=== PATIENT | male | born 1940 | race Caucasian/White ===

== ENCOUNTER 2017-01-04 13:23 | Emergency (ER) | payer OTHER ==
[~2017-01-04] VITALS: Ht 182.9 cm; Wt 68.2 kg
[~2017-01-04 13:23] MED LIST: AMLO-114 PO; ASPCH81X PO; ATOR-24 PO; BACL1TAB PO; CHOL100010 PO; CYCL10TA6 PO; FERRTAB18 PO; HYDR-4717 PO; IPRA1AER2 INH; KETO0.5S22 OPL; LORA-741 PO; LOSA100T65 PO; METO25TA3 PO; MULTCHW3 PO; OXGN; OXYC-106 PO; PANT40TA PO; PRED1SUS3 OPL; PRVHFAIN INH; SENN-65 PO; SYMIN160 INH; ZOLP10TA PO
[2017-01-04 13:32] VITALS: TEMP 36.5; Ht 182.9 cm; Wt 68.2 kg
[2017-01-04] MEDS ORDERED: SODIUM CHLORIDE 0.9% 250ML 250 ML IV STA (13:46)
[2017-01-04] MEDS ORDERED: OPTIRAY 320 IV PRN (14:00)
[2017-01-04 14:33] LABS: BASO % 2.6 %; BASO ABS # 0.18 K/uL (0-0.2); COMPLETE YES; HEMATOCRIT 33.3 % (42-52); IG% 0.1 %; LYMPH % 24.7 %; LYMPH ABS # 1.69 K/uL (1.2-3.4); MEAN CELL VOLUME 84.3 fL (80-100); MEAN CORPUSCULAR HEMOGLOBIN 27.8 pg (25-34); MEAN PLATELET VOLUME 8.9 fL (7.4-10.4); NEUT % 59.6 %; PLATELET COUNT 476 K/uL (130-400); RED BLOOD COUNT 3.95 M/uL (4.7-6.1); WHITE BLOOD COUNT 6.84 K/uL (4.8-10.8)
[2017-01-04 15:00] LABS: CALCIUM 8.7 mg/dl (8.5-10.1)
[2017-01-04 15:02] LABS: BUN/CREATININE RATIO 10.7 (10-20); CREATININE 0.8 mg/dl (0.60-1.40); POTASSIUM 3.9 mmol/L (3.5-5.1)
--- NOTE | 2017-01-04 16:49 | DIAGNOSTIC IMAGING REPORT ---
ABDOMEN AND PELVIS CT WITH IV AND ORAL CONTRAST CT DOSE: 338.36 mGy.cm HISTORY: Left lower quadrant pain LLQ pain and diarrhea eval for diver tic TECHNIQUE: Multiaxial CT images of the abdomen and pelvis were performed following the use of intravenous and oral contrast. COMPARISON STUDY: 11/17/2013 FINDINGS: Mild left basilar atelectasis. Liver spleen and pancreas appear unremarkable. Stable left adrenal nodule. Gallbladder is negative for distention. Kidneys negative for hydronephrosis. Several renal vascular calcifications are present. Atherosclerotic change abdominal aorta as well as iliac vasculature. Graft placement is noted on the right. This appears patent. Bowel pattern overall is nonobstructive. Bladder is midline. There is mild thickening of the bladder wall felt to be secondary to its contracted state. IMPRESSION: No acute process. Chronic changes as noted stable from the prior exam. No evidence for retroperitoneal hemorrhage mass or collection. Electronically signed by: Stiven Schroeder M.D. 01/04/2017 4:47 PM Dictated Date/Time: 01/04/2017 4:44 PM
[2017-01-04 16:57] VITALS: BP 130/69; PULSE 89; O2SAT 94
--- NOTE | 2017-01-04 17:55 | EMERGENCY ROOM VISIT NOTE ---
History Report prepared by Ira: Kellee Faith Under the Supervision of: Dr. Garth Hernandez M.D. First contact with patient: 13:37 Chief Complaint: GI ASSESSMENT Stated Complaint: GI BLEED Nursing Triage Summary: Pt states hx of GI bleed. Today having fever/chills, diarrhea, decreased po intake, nausea. + blood in stool. States stools are black. History of Present Illness The patient is a 76 year old male who presents to the Emergency Room with complaints of multiple episodes of diarrhea over the past couple of days. Today , the patient had 2 episodes of diarrhea and noticed that his stool was black in color. He did not notice any red blood in his stool. He did not check what color his stool was yesterday. Currently, the patient also complains of some weakness and lightheadedness. He has shortness of breath at baseline and his breathing today is unchanged. The patient has a history of a GI bleed in June 2016. He called his PCP today and was referred to the ED due to his symptoms. Denies fever, chest pain, vomiting, abdominal pain, or other complaints. He takes baby aspirin daily but does not use any other blood thinners. He does not use NSAIDS. He drinks alcohol very rarely. Denies any recent foreign travel or recent antibiotic use. Source of History: patient Onset: a couple days ago Position: other (GI) Quality: other (diarrhea) Timing: other (episodic) Associated Symptoms: + weakness, No abdominal pain, No chest pain, No fevers , No vomiting Note: Other symptoms: lightheadedness Review of Systems See HPI for pertinent positives & negatives. A total of 10 systems reviewed and were otherwise negative. Past Medical & Surgical Medical Problems: (1) Aneurysm artery, femoral (2) Cerebrovascular event (3) Chronic anticoagulation (4) Chronic respiratory failure with hypoxia (5) Colon cancer (6) COPD (chronic obstructive pulmonary disease) (7) H/O: lung cancer (8) HLD (hyperlipidemia) (9) Hypertension (10) Pacemaker (11) Peripheral vascular disease (12) Pulmonary embolus Surgical Problems: (1) H/O hernia repair (2) History of back surgery (3) S/P AAA repair (4) S/P lobectomy of lung (5) S/P partial colectomy (6) S/P tonsillectomy Family History FHx: cancer SISTER FHx: heart disease FATHER SISTER FHx: hypertension FHx: lung disease Stroke MOTHER Social History Smoking Status: Former Smoker Alcohol Use: occasionally Drug Use: none Marital Status: Housing Status: lives with family Occupation Status: retired Current/Historical Medications Scheduled Amlodipine (Norvasc), 10 MG PO QAM Aspirin (Aspirin Chewable), 81 MG PO QPM Atorvastatin (Lipitor), 40 MG PO HS Budesonide/Formoterol Fumarate (Symbicort 160/4.5 Inhaler ), 2 PUFFS INH BID Cholecalciferol (Vitamin D), 2 TAB PO QPM Hydralazine Hcl (Apresoline), 25 MG PO TID Ipratropium-Albuterol (Combivent Respimat), 1 PUFFS INH QID Iron-Vitamin C (Vitron-C), 1 TAB PO QPM Losartan Potassium (Cozaar), 100 MG PO QPM Multiple Vitamins W/ Minerals (Centrum), 1 CHW PO QPM Oxygen (Oxygen), 3 LITERS NA PRN Pantoprazole (Protonix), 40 MG PO DAILY Scheduled PRN Albuterol (Ventolin Hfa), 2 PUFFS INH QID PRN for Wheezing Baclofen (Lioresal), 20 MG PO TID PRN for Muscle Spasms Cyclobenzaprine Hcl (Flexeril), 1 TAB PO TID PRN for Muscle Spasms Lorazepam (Ativan), 0.5 MG PO TID PRN for Anxiety Oxycodone/Acetaminophen 10MG/325MG (Percocet 10MG/325MG), 1 TAB PO Q4H PRN for Pain Senna/Docusate Sod (Senokot S), 1 TAB PO QAM PRN for Constipation Zolpidem Tartrate (Ambien), 1 TAB PO HS PRN for Insomnia Allergies Coded Allergies: No Known Allergies (Verified , 01/04/17) Physical Exam Vital Signs Date Time Temp Pulse Resp B/P Pulse Ox O2 Delivery O2 Flow Rate FiO2 01/04/17 16:57 89 16 130/69 94 Room Air 01/04/17 14:42 72 140/68 99 Room Air 01/04/17 13:32 36.5 103 18 123/78 97 Nasal Cannula Physical Exam Constitutional: Vital signs reviewed. Eyes: Pupils are equal round reactive to light. Conjunctiva are noninjected. ENT: Pharynx is clear without erythema or exudate. Mucous membranes are moist. Neck supple without meningeal signs. Respiratory: Clear to auscultation bilaterally. Breath sounds are equal bilaterally. Cardiovascular: Regular rate and rhythm. No rubs or gallops. GI: Soft, nondistended with mild left lower quadrant tenderness. No guarding. Bowel sounds are present. Guaiac negative dark brown stool Musculoskeletal: No peripheral edema. No lower extremity tenderness. Integumentary: No cyanosis. Neurological: The patient is awake and alert. No focal deficits. Psychiatric: Normal affect. Medical Decision & Procedures ER Provider Diagnostic Interpretation: Radiology results as stated below per my review and the radiologist's interpretation: ABDOMEN AND PELVIS CT WITH IV AND ORAL CONTRAST CT DOSE: 338.36 mGy.cm HISTORY: Left lower quadrant pain LLQ pain and diarrhea eval for diver tic TECHNIQUE: Multiaxial CT images of the abdomen and pelvis were performed following the use of intravenous and oral contrast. COMPARISON STUDY: 11/17/2013 FINDINGS: Mild left basilar atelectasis. Liver spleen and pancreas appear unremarkable. Stable left adrenal nodule. Gallbladder is negative for distention. Kidneys negative for hydronephrosis. Several renal vascular calcifications are present. Atherosclerotic change abdominal aorta as well as iliac vasculature. Graft placement is noted on the right. This appears patent. Bowel pattern overall is nonobstructive. Bladder is midline. There is mild thickening of the bladder wall felt to be secondary to its contracted state. IMPRESSION: No acute process. Chronic changes as noted stable from the prior exam. No evidence for retroperitoneal hemorrhage mass or collection. Electronically signed by: Stiven Schroeder M.D. 01/04/2017 4:47 PM Dictated Date/Time: 01/04/2017 4:44 PM Laboratory Results 01/04/17 14:15 Red Blood Count 3.95, Mean Corpuscular Volume 84.3, Mean Corpuscular Hemoglobin 27.8, Mean Corpuscular Hemoglobin Concent 33.0, Mean Platelet Volume 8.9, Neutrophils (%) (Auto) 59.6, Lymphocytes (%) (Auto) 24.7, Monocytes (%) (Auto) 12.0, Eosinophils (%) (Auto) 1.0, Basophils (%) (Auto) 2.6, Neutrophils # (Auto ) 4.07, Lymphocytes # (Auto) 1.69, Monocytes # (Auto) 0.82, Eosinophils # (Auto ) 0.07, Basophils # (Auto) 0.18 01/04/17 14:15 Test 01/04/17 14:15 White Blood Count 6.84 K/uL (4.8-10.8) Red Blood Count 3.95 M/uL (4.7-6.1) Hemoglobin 11.0 g/dL (14.0-18.0) Hematocrit 33.3 % (42-52) Mean Corpuscular Volume 84.3 fL (80-100) Mean Corpuscular Hemoglobin 27.8 pg (25-34) Mean Corpuscular Hemoglobin Concent 33.0 g/dl (32-36) Platelet Count 476 K/uL (130-400) Mean Platelet Volume 8.9 fL (7.4-10.4) Neutrophils (%) (Auto) 59.6 % Lymphocytes (%) (Auto) 24.7 % Monocytes (%) (Auto) 12.0 % Eosinophils (%) (Auto) 1.0 % Basophils (%) (Auto) 2.6 % Neutrophils # (Auto) 4.07 K/uL (1.4-6.5) Lymphocytes # (Auto) 1.69 K/uL (1.2-3.4) Monocytes # (Auto) 0.82 K/uL (0.11-0.59) Eosinophils # (Auto) 0.07 K/uL (0-0.5) Basophils # (Auto) 0.18 K/uL (0-0.2) RDW Standard Deviation 54.0 fL (36.4-46.3) RDW Coefficient of Variation 17.4 % (11.5-14.5) Immature Granulocyte % (Auto) 0.1 % Immature Granulocyte # (Auto) 0.01 K/uL (0.00-0.02) Anion Gap 8.0 mmol/L (3-11) Est Creatinine Clear Calc Drug Dose 74.6 ml/min Estimated GFR () 99.9 Estimated GFR (Non- 86.2 BUN/Creatinine Ratio 10.7 (10-20) Calcium Level 8.7 mg/dl (8.5-10.1) Total Bilirubin 0.5 mg/dl (0.2-1) Direct Bilirubin 0.1 mg/dl (0-0.2) Aspartate Amino Transf (AST/SGOT) 15 U/L (15-37) Alanine Aminotransferase (ALT/SGPT) 16 U/L (12-78) Alkaline Phosphatase 101 U/L (45-117) Total Protein 7.1 gm/dl (6.4-8.2) Albumin 3.1 gm/dl (3.4-5.0) Lipase 170 U/L (73-393) Laboratory results as reviewed by me. Medications Administered Medications (Trade) Dose Ordered Sig/Andrae Route Start Time Stop Time Status Last Admin Dose Admin Sodium Chloride (Nss 250ml) 250 ml @ 999 mls/hr Q16M STAT IV 01/04/17 13:46 01/04/17 14:01 DC 01/04/17 14:26 999 MLS/HR ED Course 1339: The patient was evaluated in room B3. A complete history and physical exam was performed. 1346: Ordered NSS 250 ml @ 999 mls/hr IV. 1658: I reassessed the patient and discussed test results with him. He will be discharged home. Medical Decision This is a 76-year-old male who presents with black diarrhea and abdominal pain. Differential diagnosis includes GI bleed, anemia, diverticulitis, diverticulosis, enteritis. I did perform a limited focused review of portions of the patient's old chart on the electronic medical record. He was admitted in August for pneumonia. He had a colonoscopy in July which showed internal hemorrhoids and a polyp in the transverse colon. He had esophageal stenosis on EGD which was dilated. I did evaluate the patient as noted above. The patient is presenting with black diarrhea at home. He has a prior history of GI bleed and was sent here by his doctor's office. Rectal examination shows guaiac negative dark stool. He does have some tenderness in the left lower quadrants was concerned about possible diverticulitis. His colonoscopy at a poor prep previously. IV access was established. The patient was placed on a continuous monitor worker. I did order and review the patient's blood work as noted in the electronic medical record. He is slightly anemic but his hemoglobin is improved since his last visit. I was unable to get a more recent hemoglobin from the [employer] system. He was given normal saline IV. I did order a CT of the abdomen and pelvis. I did review the images myself as well as the radiology report as described above.There is no evidence of acute abnormality on CT scanning. After further questioning the patient states that he started taking Pepto-Bismol. This likely caused his stool to turn black. He has no symptoms at this time and feels well and so he was discharged to follow up with his doctor. Impression Primary Impression: Diarrhea Additional Impression: Anemia, unspecified Scribe Attestation The scribe's documentation has been prepared under my direct and personally reviewed by me in its entirety. I confirm that the note above accurately reflects all work, treatment, procedures, and medical decision making performed by me. Departure Information Dispostion Home / Self-Care Referrals Addison Rodrigez D.O. (PCP) Patient Instructions ED Anemia Type Not Specified, My [facility] Additional Instructions You have been examined and treated today on an emergency basis only. This is not a substitute for, or an effort to provide, complete comprehensive medical care. It is impossible to recognize and treat all injuries or illnesses in a single emergency department visit. It is therefore important that you follow up closely with your physician. Call as soon as possible for an appointment. Return for worsening symptoms or if you develop fever, vomiting, chest pain or any other concerning symptoms. Problem Qualifiers Primary Impression: Diarrhea Diarrhea type: unspecified type Qualified Codes: R19.7 - Diarrhea, unspecified
[2017-02-16] MEDS ORDERED: LVQ750 PO (09:51)
[2017-02-26] MEDS ORDERED: ZYP5 PO (09:58)
[2017-02-26] MEDS ORDERED: BACL1TAB PO (09:58)
[2017-02-26] MEDS ORDERED: IPRA1AER2 INH (09:58)
[2017-02-26] MEDS ORDERED: LORA-741 PO (16:09)
[2017-07-27] MEDS ORDERED: PRT40 PO (09:56)
[2017-07-27] MEDS ORDERED: FURO-85 PO (09:56)
[2017-07-27] MEDS ORDERED: RISP-99 PO (09:56)
[2017-07-27] MEDS ORDERED: NCY50 PO (09:56)
[2017-07-27] MEDS ORDERED: ERGO500011 PO (09:56)
== END 2017-01-04 17:10 | disposition home or self-care (01) ==
LOC: C.EDB 13:24
DX: R19.7 Diarrhea, unspecified (principal); D64.9 Anemia, unspecified; Z79.82 Long term (current) use of aspirin; J44.9 Chronic obstructive pulmonary disease, unspecified; Z85.038 Personal history of other malignant neoplasm of large intestine; Z85.118 Personal history of other malignant neoplasm of bronchus and lung; E78.5 Hyperlipidemia, unspecified; I10 Essential (primary) hypertension; Z95.0 Presence of cardiac pacemaker; Z86.711 Personal history of pulmonary embolism; I73.9 Peripheral vascular disease, unspecified; Z90.49 Acquired absence of other specified parts of digestive tract; Z90.2 Acquired absence of lung [part of]; Z80.9 Family history of malignant neoplasm, unspecified; Z82.49 Family history of ischemic heart disease and other diseases of the circulatory system; Z82.3 Family history of stroke; Z87.891 Personal history of nicotine dependence; Z79.899 Other long term (current) drug therapy

== ENCOUNTER 2017-02-12 22:54 | Inpatient (IN) | payer OTHER ==
[~2017-02-12] VITALS: Ht 182.9 cm; Wt 75.6 kg
[~2017-02-12 22:54] MED LIST changes: -KETO0.5S22 OPL; -METO25TA3 PO; -PRED1SUS3 OPL
--- NOTE | 2017-02-12 23:12 | EMERGENCY ROOM VISIT NOTE ---
History Report prepared by Ira: Pop Ahn Under the Supervision of: Dr. Flex Dash M.D. First contact with patient: 23:09 Chief Complaint: ILLNESS Stated Complaint: GEN. ILLNESS History of Present Illness The patient is a 76 year old male who presents to the Emergency Room with complaints of a fever that began about 20 hours ago. This HPI is limited secondary to altered mental status. Per the , the patient's temperature has been 102 F at its highest. She also notes that he has been more confused recently. He has been more short of breath, fatigued, and has lost his bowels accidentally while in bed. This has never happened before. He has been falling recently as well. They deny any coughing, urinary symptoms, or abdominal pain. He was on Coumadin, but has not been on it for 6 months. 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 Source of History: patient, spouse/significant other History Limited By: AMS Onset: 20 hours ago Position: other (global) Symptom Intensity: 102 F Quality: other (Fever) Timing: waxes/wanes Associated Symptoms: + SOB, No LOC, No abdominal pain, No cough, No urinary symptoms Note: He has some confusion and loss of bowel control. He has also fallen recent. Review of Systems ROS is limited secondary to AMS. Past Medical & Surgical Medical Problems: (1) Aneurysm artery, femoral (2) Cerebrovascular event (3) Chronic anticoagulation (4) Chronic respiratory failure with hypoxia (5) Colon cancer (6) COPD (chronic obstructive pulmonary disease) (7) Encephalopathy (8) H/O: lung cancer (9) HLD (hyperlipidemia) (10) Hypertension (11) Pacemaker (12) Peripheral vascular disease (13) Pulmonary embolus Surgical Problems: (1) H/O hernia repair (2) History of back surgery (3) S/P AAA repair (4) S/P lobectomy of lung (5) S/P partial colectomy (6) S/P tonsillectomy Family History FHx: cancer SISTER FHx: heart disease FATHER SISTER FHx: hypertension FHx: lung disease Stroke MOTHER Social History Smoking Status: Former Smoker Alcohol Use: occasionally Drug Use: none Marital Status: Housing Status: lives with family Occupation Status: retired Current/Historical Medications Scheduled Amlodipine (Norvasc), 10 MG PO QAM Aspirin (Aspirin Chewable), 81 MG PO QPM Atorvastatin (Lipitor), 40 MG PO HS Baclofen (Lioresal), 20 MG PO TID Budesonide/Formoterol Fumarate (Symbicort 160/4.5 Inhaler ), 2 PUFFS INH BID Cholecalciferol (Vitamin D), 2 TAB PO QPM Dronabinol (Marinol), 5 MG PO BIDM Fentanyl (Fentanyl), 25 MCG TOP [id number] Hydralazine Hcl (Apresoline), 25 MG PO TID Ipratropium-Albuterol (Combivent Respimat), 2 PUFFS INH QID Losartan Potassium (Cozaar), 100 MG PO QPM Metoprolol Succinate (Metoprolol Succinate ER), 25 MG PO DAILY Multiple Vitamins W/ Minerals (Centrum), 1 CHW PO QPM Oxygen (Oxygen), 3 LITERS NA CONTINOUS Pantoprazole (Protonix), 40 MG PO DAILY Scheduled PRN Albuterol (Ventolin Hfa), 2 PUFFS INH QID PRN for Wheezing Amoxicillin & Pot Clavulanate (Augmentin 875-125 mg), 1 TAB PO BID PRN for RESCUE KIT Cyclobenzaprine Hcl (Flexeril), 1 TAB PO TID PRN for Muscle Spasms Lorazepam (Ativan), 0.5 MG PO TID PRN for Anxiety Ondansetron Hcl (Zofran), 4 MG PO Q6 PRN for Nausea Oxycodone/Acetaminophen 10MG/325MG (Percocet 10MG/325MG), 1 TAB PO Q6 PRN for Pain Prednisone Tab (Prednisone), 10 MG PO UD PRN for RESCUE KIT Senna/Docusate Sod (Senokot S), 1 TAB PO QAM PRN for Constipation Zolpidem Tartrate (Ambien), 1 TAB PO HS PRN for Insomnia Allergies Coded Allergies: No Known Allergies (Verified , 02/13/17) Physical Exam Vital Signs Date Time Temp Pulse Resp B/P Pulse Ox O2 Delivery O2 Flow Rate FiO2 02/13/17 01:27 36.8 02/13/17 00:26 88 20 147/83 02/12/17 23:16 95 Room Air 02/12/17 23:12 38.0 98 20 134/74 95 Room Air 02/12/17 23:09 99 Physical Exam GENERAL: Patient is elderly, frail, and tired appearing and in no acute distress. He is moderately confused. HEENT: No acute trauma, normocephalic atraumatic, mucous membranes moist, no nasal congestion, no scleral icterus. NECK: No stridor, no adenopathy, no meningismus, trachea is midline. LUNGS: No dyspnea. Clear to auscultation and equal bilaterally. No wheeze, no rhonchi. HEART: Mildly tachycardic rate and rhythm. No murmurs, rubs, gallops appreciated. ABDOMEN: Soft, with vague suprapubic tenderness to palpation, bowel sounds positive, no masses appreciated, no peritonitis. BACK: No midline tenderness, no CVA tenderness EXTREMITIES: Normal motion all extremities, no cyanosis, no edema. Old skin tears to the bilateral elbows. NEUROLOGIC: Awake and answering questions, but confused. No acute motor or sensory deficits, no focal weakness, cranial nerves grossly intact. SKIN: No rash, no jaundice, no diaphoresis. Medical Decision & Procedures ER Provider Diagnostic Interpretation: Radiology results and stated below per my review and radiologist interpretation: CT HEAD: History: Confusion, status post fall Comparison: 08/21/11 Findings: No hemorrhage, hydrocephalus, early ischemic changes, or intracranial mass effect. Moderate generalized volume loss, appropriate for the patients age. Grossly unremarkable appearance of unenhanced orbits and overlying soft tissues. Clear paranasal sinuses and mastoid air cells. No fracture is seen. Impression: No acute intracranial abnormality. Radiologist: Cuba Lozano MD Chest X-RAY 1 VIEW: Elevated left hemidiaphragm. Questioned left lower lobe infiltrate, however on his previous chest x-ray there was a significantly large infiltrate, so this may be scarring. No effusion. Cardiac border is similar to previous. Per me. Laboratory Results Test 02/12/17 23:25 02/12/17 23:55 02/13/17 00:08 02/13/17 00:15 RDW Standard Deviation 47.7 fL (36.4-46.3) RDW Coefficient of Variation 15.9 % (11.5-14.5) White Blood Count 16.31 K/uL (4.8-10.8) Red Blood Count 3.89 M/uL (4.7-6.1) Hemoglobin 10.7 g/dL (14.0-18.0) Hematocrit 31.9 % (42-52) Mean Corpuscular Volume 82.0 fL (80-100) Mean Corpuscular Hemoglobin 27.5 pg (25-34) Mean Corpuscular Hemoglobin Concent 33.5 g/dl (32-36) Platelet Count 421 K/uL (130-400) Mean Platelet Volume 9.6 fL (7.4-10.4) Neutrophils (%) (Auto) 71.9 % Lymphocytes (%) (Auto) 6.8 % Monocytes (%) (Auto) 20.5 % Eosinophils (%) (Auto) 0.0 % Basophils (%) (Auto) 0.5 % Neutrophils # (Auto) 11.73 K/uL (1.4-6.5) Lymphocytes # (Auto) 1.11 K/uL (1.2-3.4) Monocytes # (Auto) 3.34 K/uL (0.11-0.59) Eosinophils # (Auto) 0.00 K/uL (0-0.5) Basophils # (Auto) 0.08 K/uL (0-0.2) Immature Granulocyte % (Auto) 0.3 % Immature Granulocyte # (Auto) 0.05 K/uL (0.00-0.02) Toxic Vacuolation 1+ Dohle Bodies 2+ Prothrombin Time 12.1 SECONDS (9.0-12.0) Prothromb Time International Ratio 1.1 (0.9-1.1) Est Creatinine Clear Calc Drug Dose 78.5 ml/min Magnesium Level 1.9 mg/dl (1.8-2.4) Total Bilirubin 0.8 mg/dl (0.2-1) Direct Bilirubin 0.2 mg/dl (0-0.2) Aspartate Amino Transf (AST/SGOT) 21 U/L (15-37) Alanine Aminotransferase (ALT/SGPT) 26 U/L (12-78) Alkaline Phosphatase 64 U/L (45-117) Total Creatine Kinase 48 U/L (39-308) Creatine Kinase MB < 0.5 ng/ml (0.5-3.6) Creatine Kinase MB Ratio (0-3.0) Total Protein 6.6 gm/dl (6.4-8.2) Albumin 3.0 gm/dl (3.4-5.0) Osmolality 255 mOsm/kg (280-300) Thyroid Stimulating Hormone (TSH) 0.399 uIu/ml (0.300-4.500) Bedside Lactic Acid Venous 1.27 mmol/L (0.90-1.70) Urine Color DK YELLOW Urine Appearance CLEAR (CLEAR) Urine pH 6.0 (4.5-7.5) Urine Specific [place] 1.017 (1.000-1.030) Urine Protein 1+ (NEG) Urine Glucose (UA) NEG (NEG) Urine Ketones NEG (NEG) Urine Occult Blood NEG (NEG) Urine Nitrite NEG (NEG) Urine Bilirubin NEG (NEG) Urine Urobilinogen NEG (NEG) Urine Leukocyte Esterase NEG (NEG) Urine WBC (Auto) 1-5 /hpf (0-5) Urine RBC (Auto) 0-4 /hpf (0-4) Urine Hyaline Casts (Auto) 1-5 /lpf (0-5) Urine Epithelial Cells (Auto) 10-20 /lpf (0-5) Urine Bacteria (Auto) NEG (NEG) Laboratory results as reviewed by me. Medications Administered Medications (Trade) Dose Ordered Sig/Andrae Route Start Time Stop Time Status Last Admin Dose Admin Sodium Chloride (Nss 1000ml) 1,000 ml @ 999 mls/hr Q1H1M STAT IV 02/12/17 23:21 02/13/17 00:21 DC 02/12/17 23:32 999 MLS/HR Acetaminophen (Tylenol Tab) 1,000 mg NOW STAT PO 02/12/17 23:23 02/12/17 23:24 DC 02/12/17 23:37 1,000 MG Albuterol/ Ipratropium (Duoneb) 3 ml NOW STAT INH 02/13/17 00:28 02/13/17 00:31 DC 02/13/17 00:48 3 ML Piperacillin Sod/ Tazobactam Sod 4.5 gm 4.5 gm NOW STAT IV 02/13/17 00:28 02/13/17 00:31 DC 02/13/17 00:48 4.5 GM Vancomycin HCl/ Sodium Chloride (Vancomycin Inj/ Nss 500ml) 536 ml @ 200 mls/hr NOW STAT IV 02/13/17 00:48 02/13/17 03:28 DC 02/13/17 01:18 200 MLS/HR Metronidazole (Flagyl Tab) 500 mg NOW STAT PO 02/13/17 01:53 02/13/17 01:54 DC 02/13/17 02:35 500 MG ECG Indication: altered mental status Rate (beats per minute): 88 Rhythm: normal sinus Findings: RBBB, no acute ischemic change, no ectopy ED Course 230: The patient was evaluated in room B7. A complete history and physical exam was performed. 2321: Ordered Sodium Chloride 1000 ml @ IV mls/hr 2323: Ordered Tylenol Tab 1000 mg PO 0025: They just sent his urine for a urinalysis. 0028: Ordered Zosyn Iv 4.5 gm IV, DuoNeb 3 ml INH 0048: Ordered Vancomycin HCl 1800 mg/Sodium Chloride 536 ml @ 200 mls/hr 0058: He is still coughing periodically. 0101: Upon reevaluation, the patient is resting. Discussed results and treatment plan with the patient. His verbalized understanding and agreement with the treatment plan. The patient will be evaluated by Dr. Keiko Emanuel, for further management. Medical Decision Differential: Sepsis, Infectious (UTI/Pneumonia/Meningitis/etc), Metabolic/ Electrolyte Abnormality, Cardiac, Hepatic, Endocrine, Toxicologic, Neurologic, amongst other pathologies entertained. 76 yr old male arrives with fevers, confusion and generalized weakness. Cough, shortness of breath and recent URI, as well as requiring his home O2 more and higher. Fever broke and patient looking improved after tyl/nss bolus. CXR without clear evidence of infiltrate though given symptoms suspect there is underlying pneumonia. No evidence of meningeal signs on examination. UA clear. Abdomen without peritonitis and just had some mild suprapubic discomfort originally which resolved. Broad spectrum abx given. Fluids given though without septic shock (BP and Lactic OK) will avoid over resus. With symptoms and findings will need to come in for further work-up and evaluation. Consults Time Called: 57 Consulting Physician: Dr. Keiko Emanuel Returned Call: [phone] He will be evaluating the patient for further management. Impression Primary Impression: Sepsis Additional Impressions: SOB (shortness of breath) Confusion Scribe Attestation The scribe's documentation has been prepared under my direction and personally reviewed by me in its entirety. I confirm that the note above accurately reflects all work, treatment, procedures, and medical decision making performed by me. Departure Information Dispostion Being Evaluated By Hospitalist Referrals Addison Rodrigez D.O. (PCP) Patient Instructions My [facility] Problem Qualifiers Primary Impression: Sepsis Sepsis type: sepsis due to unspecified organism Qualified Codes: A41.9 - Sepsis, unspecified organism
[2017-02-12] MEDS ORDERED: SODIUM CHLORIDE 0.9% 1000ML 1,000 ML IV STA (23:21)
[2017-02-12] MEDS ORDERED: ACETAMINOPHEN 500 MG TAB PO STA (23:23)
[2017-02-12 23:34] LABS: HEMATOCRIT 31.9 % (42-52); MEAN CORPUSCULAR HEMOGLOBIN 27.5 pg (25-34); MEAN CORPUSCULAR HGB CONC 33.5 g/dl (32-36); MEAN PLATELET VOLUME 9.6 fL (7.4-10.4); PLATELET COUNT 421 K/uL (130-400); RED BLOOD COUNT 3.89 M/uL (4.7-6.1); WHITE BLOOD COUNT 16.31 K/uL (4.8-10.8)
[2017-02-12 23:43] LABS: INR 1.1 (0.9-1.1); PROTHROMBIN TIME (PATIENT) 12.1 SECONDS (9.0-12.0)
[2017-02-12 23:53] LABS: ALT/SGPT 26 U/L (12-78); AST/SGOT 21 U/L (15-37); BLOOD UREA NITROGEN 13 mg/dl (7-18); BUN/CREATININE RATIO 16.2 (10-20); CARBON DIOXIDE 25 mmol/L (21-32); CHLORIDE 92 mmol/L (98-107); CREATININE 0.81 mg/dl (0.60-1.40); GLUCOSE 101 mg/dl (70-99); MAGNESIUM 1.9 mg/dl (1.8-2.4); POTASSIUM 3.9 mmol/L (3.5-5.1); SODIUM 128 mmol/L (136-145)
[2017-02-12 23:58] LABS: ALKALINE PHOSPHATASE 64 U/L (45-117)
[2017-02-13] VITALS (7 sets, daily range): BP systolic 119–160; BP diastolic 51–72; PULSE 70–92; TEMP 36.4–38.5; O2SAT 92–100; Ht 182.9 cm; Wt 75.6 kg
[2017-02-13 00:17] LABS: BASO % 0.5 %; BASO ABS # 0.08 K/uL (0-0.2); COMPLETE YES; DOHLE BODIES 2+; IG% 0.3 %; LYMPH % 6.8 %; LYMPH ABS # 1.11 K/uL (1.2-3.4); MONO % 20.5 %; NEUT % 71.9 %; VACUOLIZATION 1+
[2017-02-13] MEDS ORDERED: ALBUT/IPRATROP 3MG/0.5MG NEB 3 ML VIAL INH STA (00:28)
[2017-02-13] MEDS ORDERED: VANCOMYCIN IV STA (00:28)
[2017-02-13] MEDS ORDERED: PIPERACILLIN/TAZOBACTAM 4.5 GM/100ML D5W IV STA (00:28)
[2017-02-13] MEDS ORDERED: SODIUM CHLORIDE 0.9% IV STA (00:28)
[2017-02-13 00:43] LABS: URINE APPEARANCE CLEAR (CLEAR); URINE BILIRUBIN NEG (NEG); URINE COLOR DK YELLOW; URINE NITRITE NEG (NEG); URINE SPECIFIC GRAVITY 1.017 (1.000-1.030); UROBILINOGEN NEG (NEG); ZZURINE CULT IF INDIC CATH NO
[2017-02-13 00:44] LABS: MANUAL MICROSCOPIC REQUIRED? NO; REVIEW REQ? NO
[2017-02-13] MEDS ORDERED: VANCOMYCIN INJ 1,800 MG in SODIUM CHLORIDE 0.9% 500ML 500 ML IV STA (00:48)
[2017-02-13 01:48] LABS: THYROID STIMULATING HORMONE 0.399 uIu/ml (0.300-4.500)
[2017-02-13] MEDS ORDERED: DRON5CAP2 PO (01:48)
[2017-02-13] MEDS ORDERED: FNTTP25 TOP (01:48)
[2017-02-13] MEDS ORDERED: METRONIDAZOLE 250 MG TAB PO STA (01:53)
[2017-02-13] MEDS ORDERED: ONDA4TAB46 PO (01:55)
[2017-02-13] MEDS ORDERED: AMOX875T PO (01:56)
[2017-02-13] MEDS ORDERED: PRED10TA PO (01:58)
[2017-02-13] MEDS ORDERED: TPRSR/25 PO (02:01)
[2017-02-13] MEDS ORDERED: ACETAMINOPHEN 325 MG TAB PO PRN (02:45)
[2017-02-13] MEDS ORDERED: OPTIRAY 320 IV PRN (02:45)
[2017-02-13] MEDS ORDERED: HYDROmorphone INJ 1 MG/ML SYR IV PRN (02:45)
[2017-02-13] MEDS ORDERED: OXYCODONE/ACETAMINOPHEN 10/325MG TAB PO PRN ×2 (02:45)
[2017-02-13] MEDS ORDERED: NITROGLYCERIN 0.4 MG SL PER TAB CHARGE SL PRN (02:45)
[2017-02-13] MEDS ORDERED: OXYCODONE/ACETAMINOPHEN 5-325 TAB PO PRN (03:00)
[2017-02-13] MEDS ORDERED: ALBUT/IPRATROP 3MG/0.5MG NEB 3 ML VIAL INH PRN (03:45)
[2017-02-13] MEDS ORDERED: NSS + 20MEQ KCL 1000ML 1,000 ML IV ONE (05:00)
[2017-02-13] MEDS: ACETAMINOPHEN 500 MG TAB PO SCH ×2 (06:00→19:11)
[2017-02-13 06:18] LABS: HEMATOCRIT 30.4 % (42-52); MEAN CELL VOLUME 83.1 fL (80-100); MEAN CORPUSCULAR HGB CONC 32.6 g/dl (32-36); MEAN PLATELET VOLUME 9.2 fL (7.4-10.4); PLATELET COUNT 311 K/uL (130-400); RED BLOOD COUNT 3.66 M/uL (4.7-6.1); WHITE BLOOD COUNT 16.52 K/uL (4.8-10.8)
[2017-02-13 06:50] LABS: BASO ABS # 0.28 K/uL (0-0.2); BASOPHIL % 1.7 % (0-2); COMPLETE YES; DOHLE BODIES 2+; LYMPH ABS # 0.58 K/uL (1.2-3.4); LYMPHOCYTE % 3.5 %; VACUOLIZATION 1+
--- NOTE | 2017-02-13 06:52 | DIAGNOSTIC IMAGING REPORT ---
CHEST ONE VIEW PORTABLE CLINICAL HISTORY: Fever. COMPARISON STUDY: Chest radiograph September 20, 2016. FINDINGS: Elevation of the left hemidiaphragm is again noted with postsurgical findings within the left hemithorax. Left lower lung opacity likely reflects atelectasis or scarring. There is no evidence of pulmonary edema. There is severe emphysema. A chondroid lesion within the proximal shaft of the left humerus is unchanged. Cardiac size is normal. There is no evidence of pulmonary edema. A dual lead left pacemaker is in place. IMPRESSION: No acute cardiopulmonary findings. No change in appearance of the chest. Electronically signed by: Travis Stewart M.D. 02/13/2017 6:51 AM Dictated Date/Time: 02/13/2017 6:49 AM
[2017-02-13 06:58] LABS: BLOOD UREA NITROGEN 12 mg/dl (7-18); CALCIUM 7.9 mg/dl (8.5-10.1); CARBON DIOXIDE 24 mmol/L (21-32); CHLORIDE 97 mmol/L (98-107); CREATININE 0.73 mg/dl (0.60-1.40); GLUCOSE 97 mg/dl (70-99); POTASSIUM 3.7 mmol/L (3.5-5.1); SODIUM 130 mmol/L (136-145)
--- NOTE | 2017-02-13 07:12 | DIAGNOSTIC IMAGING REPORT ---
CT SCAN OF THE BRAIN WITHOUT IV CONTRAST CLINICAL HISTORY: Fall. Change in mental status. COMPARISON STUDY: CT of the brain dated 08/13/2011. TECHNIQUE: Unenhanced axial CT scan of the brain is performed from the vertex to the skull base. CT DOSE: 614.27 mGy.cm FINDINGS: Brain parenchyma: There are age-related involutional changes noting mild patchy subcortical and periventricular microangiopathic change. There is no hemorrhage, mass effect, or evidence of acute territorial ischemia by CT criteria. De Paz-white matter is preserved. No extra-axial fluid collection is seen. Ventricles, sulci, cisterns: Prominent secondary to involutional change. Intracranial vasculature: There is atherosclerotic calcification of the cavernous carotid and vertebral arteries. Calvarium: The skeletal structures are osteopenic. No depressed calvarial fracture is seen. Sinuses and mastoids: The visualized paranasal sinuses are clear. There is a right mastoid effusion. The left mastoid air cells are well pneumatized. Orbits: The bony orbits are grossly intact. There are bilateral ocular lens implants. IMPRESSION: There is no hemorrhage, mass effect, or evidence of acute territorial ischemia by CT criteria. Electronically signed by: Leandro Valdez M.D. 02/13/2017 7:11 AM Dictated Date/Time: 02/13/2017 7:08 AM
--- NOTE | 2017-02-13 07:31 | HISTORY & PHYSICAL EXAMINATION ---
DATE OF ADMISSION: 02/13/2017 PRIMARY CARE PHYSICIAN: Dr. Rodrigez. CHIEF COMPLAINT: Shortness of breath/altered mental status as per family, diarrhea as per patient. HISTORY OF PRESENT ILLNESS: History obtained from the patient, family,and records. Patient is unreliable secondary to confusion. Medical history significant for chronic resp failure 2 to COPD on intermittent home O2, past tobacco abuse, AAA/PVD status post surgery, hypertension, sick sinus syndrome status post pacemaker, hx PE (off anticoagulation because of GI bleed in the past) chronic anemia (baseline hemoglobin 10), colon cancer sp surgery, lung cancer post-lobectomy. chronic pain, on narcotics. hx aspiration risk, hx Zenker's diverticulum as per records. Hx mini-strokes as per family Recent confinement is last August 2016 for HCAP. Over the last few months px co of achy back pain. Fentanyl patch started outpx at some point. Recent PCP visit December 2016. Worsening back pain. shots in the back not helping, needing more oxycodone for pain, falling. PT eval recommended. Recent course of Augmentin for bronchitis symptoms as per . Yesterday morning, the patient was noted to be disoriented by , somewhat short of breath, usual cough symptoms. Denies chest pain. Patient was noted to have loose stools. Denies abdominal pain. denies dysuria. At the Emergency Room, the patient received vanco and Zosyn for sepsis. PX wincing as ER physician pressing on belly as per . MEDICAL HISTORY: As above. A PET scan from September 2016 showed area of consolidation in the posterior left lung base, Low level activity, lucent lesion on the posterior inferior endplate L1, degenerative or infectious. 2D echo from June 2016 showed EF 60-65%, LVH. Missed [facility] appointment for Zenker's diverticulum last 09/2016. SURGERIES: back surgery, pacemaker, partial colectomy, hernia repair, tonsillectomy, vascular surgery, AAA status post surgery. HOME MEDICATIONS: Include Senokot, Ambien, Ativan, Cozaar, Centrum, Percocet, oxygen, Protonix, Flexeril, vitamin D, Marinol, fentanyl patch, hydralazine, Combivent, aspirin, Ventolin, Norvasc, Lipitor, baclofen, Symbicort. ALLERGIES: No known drug allergies. FAMILY HISTORY: Family history of heart disease. PERSONAL AND SOCIAL HISTORY: Past tobacco use. no ETOH intake. 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 REVIEW OF SYSTEMS: could not be reliably obtained PHYSICAL EXAMINATION: VITAL SIGNS: Blood pressure was noted to be 134/90, pulse rate 98, RR 20, temperature 38, sats 95 on room air. GENERAL: Noted to be disoriented. No respiratory distress. SKIN: Pallor. HEENT: Pale palpable conjunctivae. Dry mucosa. NECK: No JVD. supple CHEST: Clear to auscultation. HEART: Regular rate and rhythm. ABDOMEN: Some distention, minimal hypogastric tenderness. EXTREMITIES: No edema, no tenderness. NEUROLOGIC: disoriented, coherent LABS: Hemoglobin was 10.7, hematocrit 31, white blood cell count 16.3, platelets 421. Sodium 129, potassium 3.9, chloride 92, CO2 25, BUN 30, creatinine 0.8, glucose 101. IMAGING: CT of the head, no acute pathology. Chest x-ray as per my interpretation, elevated left hemidiaphragm. EKG: Rate 90, NSR, right bundle branch block, Q waves inf leads, no ischemia UA WBC 1-5, hyaline casts ASSESSMENT: 1. Encephalopathy multifactorial : sepsis poss sources : recurrent C. difficile (recent Augmentin course from bronchitis) discitis/osteomyelitis (worsening back pain over the last few months) home meds. (Fentanyl patch, percocet for worsening back pain, muscle relaxants, sedatives) mild hyponatremia 2. Hypertension, stable. 3. Chronic anemia, hemoglobin at baseline. 4. Chronic resp failure 2 to COPD on home O2. breathing at baseline 5. Shortness of breath, rule out recurrent pulmonary embolism. 6. SSS sp PPM 7. AAA/PVD sp surgery 8. Lung cancer, status post surgery. 9. Colon cancer status post surgery. 10. aspiration risk, hx Zenker's diverticulum as per records 11. Past tobacco abuse. PLAN: PCU. Cultures. Stool C. diff Flagyl for now for presumptive cdif in light of sepsis criteria. (dc Flagyl if no cdif negative) CT abd pelvis May need dedicated imaging of spine to definitively rule out infection Hold Fentanyl patch, muscle relaxants until mentation at baseline. careful correction of sodium CT chest, PE study RE shortness of breath. Further mx pending CT results PT, OT eval. DVT prophylaxis with Lovenox subQ. Full code. Patient's requesting updates from providers, Mrs.Sarah Fairchild. Contact #[phone]/ [phone] FAY
--- NOTE | 2017-02-13 07:35 | DIAGNOSTIC IMAGING REPORT ---
CT ANGIOGRAM OF THE CHEST CLINICAL HISTORY: Dyspnea. COMPARISON STUDY: Chest radiograph dated 02/12/2017. Chest CT dated 11/16/2013. TECHNIQUE: Following the IV administration of 92 cc of Optiray 320, CT angiogram of the chest was performed from the upper abdomen to the thoracic inlet utilizing the pulmonary embolus protocol. Images are reviewed in the axial, sagittal, and coronal planes. 3-D MIPS images are created and assessed. IV contrast was administered without complication. CT DOSE: 306.01 mGy.cm FINDINGS: Thyroid: Imaged portions of the thyroid gland are normal in size and attenuation. Thoracic aorta: There is atherosclerotic calcification of the thoracic aorta, which is normal in caliber and demonstrates standard 3-vessel arch anatomy. No dissection is seen. Pulmonary vasculature: The pulmonary trunk is normal in caliber. There are no filling defects identified in main, lobar, or segmental pulmonary branches to suggest pulmonary embolus. Heart: A 2-lead cardiac pacemaker is present in the left chest wall. There is mild cardiac enlargement. No pericardial effusion is seen. The coronary arteries and aortic valve leaflets are densely calcified. Lungs and pleural spaces: Advanced emphysema is observed. There is no airspace consolidation typical for pneumonia or pleural effusion. Biapical scarring is identified. Again seen are postresection changes and scarring in the left lower lobe with elevation of left hemidiaphragm. Mediastinum: There is no mediastinal lymphadenopathy. Machelle: Clear. Axillae: There is no axillary lymphadenopathy. Upper abdomen: A metallic structure is noted in the gastric fundus. A 1.9 cm left adrenal nodule is unchanged from 2014. There is glandular atrophy of the visualized pancreas. Skeletal structures: The skeletal structures are osteopenic. There are healed right posterior rib fractures. Mild degenerative change is noted throughout the thoracic spine. No lytic or blastic bony lesions are seen. IMPRESSION: 1. There is no evidence of pulmonary embolus in the main, lobar, or segmental pulmonary arteries. 2. Advanced emphysema and postresection change/scarring in the left lower lobe are similar to previous. 3. There is no airspace consolidation typical for pneumonia or pleural effusion. 4. Mild cardiac enlargement and AICD. 5. A metallic foreign body is present within the gastric fundus. 6. Additional findings as above. Electronically signed by: Leandro Vadlez M.D. 02/13/2017 7:34 AM Dictated Date/Time: 02/13/2017 7:28 AM
--- NOTE | 2017-02-13 08:05 | DIAGNOSTIC IMAGING REPORT ---
CT SCAN OF THE ABDOMEN AND PELVIS WITHOUT IV CONTRAST CLINICAL HISTORY: Generalized abdominal pain. COMPARISON STUDY: Abdominal CT dated 01/04/2017. TECHNIQUE: CT scan of the abdomen and pelvis is performed from the lung bases to the proximal femora. Images are reviewed in the axial, sagittal, and coronal planes. IV contrast was not administered for this examination as per the referring clinician. Note that the examination was performed in suboptimal fashion without oral and IV contrast. Automated dose control exposure was utilized. CT DOSE: 320.45 mGy.cm FINDINGS: Lung bases: The heart is mildly enlarged and without pericardial effusion. Pacemaker leads are noted. The coronary arteries are densely calcified. There is a tiny hiatal hernia. Advanced emphysema is present at the lung bases. Postoperative change and scarring in the left lower lobe with elevation of left hemidiaphragm is again noted Liver: The unenhanced liver is normal in size, contour, and attenuation. There is no intrahepatic biliary ductal dilatation. Gallbladder: There are numerous small calcified gallstones. There is no clear CT evidence of acute cholecystitis. Spleen: Normal in size and attenuation. Pancreas: The unenhanced pancreas is moderately atrophic and grossly unremarkable. Adrenal glands: A 1.9 cm left adrenal nodule is unchanged. The right adrenal gland is unremarkable. Kidneys: The unenhanced kidneys are atrophic and without hydronephrosis. Excreted contrast is present within the renal pelvis bilaterally and the ureters. This degrades assessment for nephrolithiasis. There is no evidence of contour deforming renal mass lesion. Abdominal vasculature: There is advanced atherosclerotic calcification of the abdominal aorta. No aneurysm is seen. There are postoperative changes from aortobiiliac bypass grafting. A stent is noted in the navajo right external iliac artery. There are stents present at the common femoral arteries at the anastomoses. Bowel: There are postoperative changes consistent with right hemicolectomy and ileocolic anastomosis. No bowel obstruction is seen. Moderate fecal retention is noted in the visualized colon. The appendix is surgically absent. Peritoneum: There is no intraperitoneal free air or abdominal ascites. Lymphadenopathy: None. Pelvic viscera: The bladder so with excreted contrast and grossly unremarkable. The prostate gland and seminal vesicles are normal as visualized. Postoperative change is present in the groin bilaterally. Skeletal structures: The skeletal structures are osteopenic. There is a moderate chronic compression deformity of L2. Moderate lumbar sacral spondylosis is observed. No lytic or blastic lesions are seen. IMPRESSION: 1. There are no acute infectious or inflammatory findings in the abdomen or pelvis. 2. There are postoperative changes from right hemicolectomy with ileocolic anastomosis. No bowel obstruction is seen. 3. Moderate colonic fecal retention is observed. 4. Cholelithiasis. 5. Advanced atherosclerotic change with postoperative change/bypass grafting as above. 6. Cardiomegaly and advanced emphysema. 7. A chronic compression deformity of L2 is similar to previous. 8. Additional findings as above. Electronically signed by: Leandro Valdez M.D. 02/13/2017 8:04 AM Dictated Date/Time: 02/13/2017 7:56 AM
[2017-02-13] MEDS ORDERED: AMLODIPINE BESYLATE 5 MG TAB PO SCH (09:00)
[2017-02-13] MEDS: BUDESONIDE/FORMOTEROL FUMARATE 160/4.5 60 PUFFS/INHALER INH SCH ×2 (09:12→20:52)
[2017-02-13] MEDS: MULTIVITAMIN TAB PO SCH (09:13)
[2017-02-13] MEDS: METRONIDAZOLE 500 MG TAB PO SCH ×3 (09:13→20:52)
[2017-02-13] MEDS: PANTOprazole SOD 40 MG TAB PO SCH (09:13)
[2017-02-13] MEDS: ENOXAPARIN 40 MG/0.4 ML SYR SC SCH (09:13)
[2017-02-13] MEDS: METOPROLOL SUCC 25MG EXT REL TAB PO SCH (09:14)
[2017-02-13] MEDS ORDERED: NURSING VERBAL MED ORDER ONE (15:00)
--- NOTE | 2017-02-13 15:53 | Progress Note ---
Medicine Progress Note Date & Time of Visit: February 13, 2017 at 15:31. Subjective 76 yoM with acute confusion yesterday after fever noted at 0300 the night before , also urine and stool incontinence in the setting of severe lower back pain that is worse with a h/o cancer. Currently afebrile and alert and appropriate at baseline mental status. Denies any symptoms at all. Daughters are at bedside and feels he is back to baseline. 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 Pt denies headache or visual changes. He was incontinent of urine and stool yesterday but not today. He was ambulating at baseline per daughter who watched him with PT today. Objective Last 8 Hrs Date Time Temp Pulse Resp B/P Pulse Ox O2 Delivery O2 Flow Rate FiO2 02/13/17 12:00 Nasal Cannula 3.0 02/13/17 11:11 36.4 70 18 119/63 95 Room Air 02/13/17 08:00 Nasal Cannula 3.0 02/13/17 07:54 36.6 75 18 124/56 95 Nasal Cannula 2.0 Physical Exam: GEN: WNWD, in no acute distress, alert and appropriate HEENT: NC/AT, PERRL, normal sclerae, EOMI CARDIO: reg rate, S1/2 heard without m/g/r, distant hear LUNGS: CTA bilaterally, no crackles, rales or wheezes, good diaphragmatic excursion ABD: soft, non-tender, non-distended, no rebound or guarding EXTREMITY: RP and DP palpable 2+ bilat, no LE swelling or edema, extremities are warm and well-perfused NEURO: CN 2-12 intact, sensation intact throughout, coordination intact (reflexes) BR 2+ bilat, knee 2+ bilat, achilles 2+ bilat MUSC: 5/5 strength throughout, no focal deficits SKIN: warm and dry Laboratory Results: Last 24 Hours Test 02/12/17 23:25 02/12/17 23:55 02/13/17 00:08 02/13/17 00:15 White Blood Count 16.31 K/uL Red Blood Count 3.89 M/uL Hemoglobin 10.7 g/dL Hematocrit 31.9 % Mean Corpuscular Volume 82.0 fL Mean Corpuscular Hemoglobin 27.5 pg Mean Corpuscular Hemoglobin Concent 33.5 g/dl Platelet Count 421 K/uL Mean Platelet Volume 9.6 fL Neutrophils (%) (Auto) 71.9 % Lymphocytes (%) (Auto) 6.8 % Monocytes (%) (Auto) 20.5 % Eosinophils (%) (Auto) 0.0 % Basophils (%) (Auto) 0.5 % Neutrophils # (Auto) 11.73 K/uL Lymphocytes # (Auto) 1.11 K/uL Monocytes # (Auto) 3.34 K/uL Eosinophils # (Auto) 0.00 K/uL Basophils # (Auto) 0.08 K/uL RDW Standard Deviation 47.7 fL RDW Coefficient of Variation 15.9 % Immature Granulocyte % (Auto) 0.3 % Immature Granulocyte # (Auto) 0.05 K/uL Toxic Vacuolation 1+ Dohle Bodies 2+ Prothrombin Time 12.1 SECONDS Prothromb Time International Ratio 1.1 Sodium Level 128 mmol/L 129 mmol/L Potassium Level 3.9 mmol/L Chloride Level 92 mmol/L Carbon Dioxide Level 25 mmol/L Anion Gap 11.0 mmol/L Blood Urea Nitrogen 13 mg/dl Creatinine 0.81 mg/dl Est Creatinine Clear Calc Drug Dose 78.5 ml/min Estimated GFR () 99.4 Estimated GFR (Non- 85.7 BUN/Creatinine Ratio 16.2 Random Glucose 101 mg/dl Calcium Level 8.0 mg/dl Magnesium Level 1.9 mg/dl Total Bilirubin 0.8 mg/dl Direct Bilirubin 0.2 mg/dl Aspartate Amino Transf (AST/SGOT) 21 U/L Alanine Aminotransferase (ALT/SGPT) 26 U/L Alkaline Phosphatase 64 U/L Total Creatine Kinase 48 U/L Creatine Kinase MB < 0.5 ng/ml Creatine Kinase MB Ratio Troponin I < 0.015 ng/ml Total Protein 6.6 gm/dl Albumin 3.0 gm/dl Osmolality 255 mOsm/kg Thyroid Stimulating Hormone (TSH) 0.399 uIu/ml Bedside Lactic Acid Venous 1.27 mmol/L Urine Color DK YELLOW Urine Appearance CLEAR Urine pH 6.0 Urine Specific [place] 1.017 Urine Protein 1+ Urine Glucose (UA) NEG Urine Ketones NEG Urine Occult Blood NEG Urine Nitrite NEG Urine Bilirubin NEG Urine Urobilinogen NEG Urine Leukocyte Esterase NEG Urine WBC (Auto) 1-5 /hpf Urine RBC (Auto) 0-4 /hpf Urine Hyaline Casts (Auto) 1-5 /lpf Urine Epithelial Cells (Auto) 10-20 /lpf Urine Bacteria (Auto) NEG Test 02/13/17 05:43 White Blood Count 16.52 K/uL Red Blood Count 3.66 M/uL Hemoglobin 9.9 g/dL Hematocrit 30.4 % Mean Corpuscular Volume 83.1 fL Mean Corpuscular Hemoglobin 27.0 pg Mean Corpuscular Hemoglobin Concent 32.6 g/dl Platelet Count 311 K/uL Mean Platelet Volume 9.2 fL RDW Standard Deviation 48.8 fL RDW Coefficient of Variation 15.9 % Neutrophils % (Manual) 80.0 % Lymphocytes % (Manual) 3.5 % Monocytes % (Manual) 14.8 % Basophils % (Manual) 1.7 % Neutrophils # (Manual) 13.22 K/uL Total Absolute Neutrophils 13.22 K/uL Lymphocytes # (Manual) 0.58 K/uL Total Absolute Lymphocytes 0.58 K/uL Monocytes # (Manual) 2.44 K/uL Basophils # (Manual) 0.28 K/uL Toxic Vacuolation 1+ Dohle Bodies 2+ Sodium Level 130 mmol/L Potassium Level 3.7 mmol/L Chloride Level 97 mmol/L Carbon Dioxide Level 24 mmol/L Anion Gap 9.0 mmol/L Blood Urea Nitrogen 12 mg/dl Creatinine 0.73 mg/dl Est Creatinine Clear Calc Drug Dose 87.1 ml/min Estimated GFR () 103.7 Estimated GFR (Non- 89.5 BUN/Creatinine Ratio 17.0 Random Glucose 97 mg/dl Calcium Level 7.9 mg/dl Troponin I < 0.015 ng/ml Date/Time Source Procedure Growth Status 02/13/17 00:10 Blood Blood Culture Pending Received 02/12/17 23:55 Blood Blood Culture Pending Received 02/13/17 00:15 Urine , Clean Catch Urine Culture Pending Received Assessment & Plan 76 yoM with acute confusion yesterday after fever noted at 0300 the night before , also urine and stool incontinence in the setting of severe lower back pain that is worse with a h/o cancer. Currently afebrile and alert and appropriate at baseline mental status. 1. Encephalopathy-etiologies include but not limited to infection with possible source being the back or other. There was spinous process tenderness around L2, however, he has a known old compression fracture in this area, also. Low sodium from poor PO intake and higher water intake may have contributed. There was no diarrhea only stool incontinence, however, patient has a h/o c- diff in the past. No stool has been collected since admission. Urine, CXR are clear without any return of his fever after abx were added. Sodium has improved with IVF, also. I would expect if there was a discitis or other [employer] infection we would see evidence in the blood or other signs of this such as headache, visual changes, or waxing waning mental status-all which are absent since admission. The patient states that he does remember the EMS folks arriving and coming over in the ambulance yesterday but doesn't remember what happened prior to that. The blood and urine cultures are still pending at this time, so will cont all antibiotics until tests return and will cont close monitoring of his mental status, etc. Will consult Ortho Spine to weigh in and consider the utility of a CT myelogram in the setting of pacemaker making MRI contraindicated. Repeat Na tonight. 2. Chronic back pain-Fentanyl patch held at admission was 25mcg. Pt is using PRN percocet. 3. Hypertension-at goal, cont Norvasc, Losartan and hydralazine 4. Chronic anemia, hemoglobin at baseline. 5. Chronic resp failure 2 to COPD on home O2. stable, no acute exacerbation, cont inhalers. 6. Leukocytosis-in setting of fever concerning for infection, but also nonspecific. Trend 7. SSS sp PPM 8. AAA/PVD sp surgery 9. Lung cancer, status post surgery. 10. Colon cancer status post surgery. 11. aspiration risk, hx Zenker's diverticulum as per records. Slippery diet needed per prior [employer] evaluation 12. Past tobacco abuse. DVT prophylaxis with Lovenox subQ. Full code. Thu Amezquita DO [facility] Hospitalist Current Inpatient Medications: Current Inpatient Medications Medications (Trade) Dose Ordered Sig/Andrae Route Start Time Stop Time Status Last Admin Dose Admin Metronidazole (Flagyl Tab) 500 mg TID PO 02/13/17 09:00 02/23/17 08:59 02/13/17 14:17 500 MG Ioversol (Optiray 320) 100 ml UD PRN IV 02/13/17 02:45 02/17/17 02:44 Amlodipine Besylate (Norvasc Tab) 10 mg QAM PO 02/13/17 09:00 03/15/17 08:59 02/13/17 09:13 10 MG Aspirin (Ecotrin Tab) 81 mg QPM PO 02/13/17 21:00 03/15/17 20:59 Atorvastatin Calcium (Lipitor Tab) 40 mg HS PO 02/13/17 21:00 03/15/17 20:59 Budesonide/ Formoterol Fumarate (Symbicort 160/ 4.5 Inh) 2 puffs BID INH 02/13/17 09:00 03/15/17 08:59 02/13/17 09:12 2 PUFFS Hydralazine HCl (Apresoline Tab) 25 mg TID PO 02/13/17 09:00 03/15/17 08:59 02/13/17 14:17 25 MG Losartan Potassium (coZAAR TAB) 100 mg QPM PO 02/13/17 21:00 03/15/17 20:59 Metoprolol Succinate (Toprol Xl Tab) 25 mg DAILY PO 02/13/17 09:00 03/15/17 08:59 02/13/17 09:14 25 MG Pantoprazole Sodium (Protonix Tab) 40 mg DAILY PO 02/13/17 09:00 03/15/17 08:59 02/13/17 09:13 40 MG Multivitamins 1 tab 1 tab QAM PO 02/13/17 09:00 03/15/17 08:59 02/13/17 09:13 1 TAB Potassium Chloride/Sodium Chloride (Nss + 20meq KCl 1000ml) 1,000 ml @ 60 mls/hr [id number] ONCE IV 02/13/17 05:00 02/13/17 21:39 02/13/17 05:41 60 MLS/HR Enoxaparin Sodium (Lovenox Inj) 40 mg Q24H SC 02/13/17 09:00 03/15/17 08:59 02/13/17 09:13 40 MG Acetaminophen (Tylenol Tab) 650 mg Q4H PRN PO 02/13/17 02:45 03/15/17 02:44 Nitroglycerin (Nitrostat Tab) 0.4 mg UD PRN SL 02/13/17 02:45 03/15/17 02:44 Hydromorphone HCl (Dilaudid Inj) 0.5 mg Q3H PRN IV 02/13/17 02:45 02/27/17 02:44 Oxycodone/ Acetaminophen (Percocet 5-325mg Tab) pain not relieved by tyle... Q6H PRN PO 02/13/17 03:00 02/27/17 02:59 02/13/17 09:27 2 TAB Albuterol/ Ipratropium (Duoneb) 3 ml Q2H PRN INH 02/13/17 03:45 03/15/17 03:44 Enteral Nutritional Formula (Boost Plus Vanilla) 1 can TIDM PO 02/13/17 16:45 03/15/17 16:44
[2017-02-13 16:27] LABS: BUN/CREATININE RATIO 15.1 (10-20); CALCIUM 8.3 mg/dl (8.5-10.1); CREATININE 0.75 mg/dl (0.60-1.40); POTASSIUM 4.2 mmol/L (3.5-5.1)
[2017-02-13] MEDS: BOOST PLUS VANILLA PO SCH ×2 (16:45)
--- NOTE | 2017-02-13 18:29 | DIAGNOSTIC IMAGING REPORT ---
CHEST ONE VIEW PORTABLE HISTORY: Increasing short of breath. COMPARISON: Chest CTA 02/13/2017. FINDINGS: Left-sided dual-chamber pacemaker. The heart is stable in size. Emphysema is again noted. Chronic elevation of the left hemidiaphragm with stable scarlike densities at the left lung base. No new focal lung consolidations. No evidence for pulmonary edema. No pleural effusions. IMPRESSION: No significant change compared to the prior study. Emphysema and postoperative changes at the left lung base are again noted. Electronically signed by: Jerrell Collins M.D. 02/13/2017 6:28 PM Dictated Date/Time: 02/13/2017 6:25 PM
[2017-02-13] MEDS: ATORVASTATIN 40 MG TAB PO SCH (20:52)
[2017-02-13] MEDS: ASPIRIN 81 MG ECTAB PO SCH (20:52)
[2017-02-13] MEDS ORDERED: LOSARTAN POTASSIUM 50 MG TAB PO SCH (21:00)
[2017-02-14] VITALS (11 sets, daily range): BP systolic 92–134; BP diastolic 41–66; PULSE 73–97; TEMP 36.6–38; O2SAT 92–100
[2017-02-14] MEDS: ACETAMINOPHEN 500 MG TAB PO SCH ×3 (05:39→21:25)
[2017-02-14 06:04] LABS: BASO % 0.2 %; BASO ABS # 0.01 K/uL (0-0.2); COMPLETE YES; EOS % 1.1 %; HEMATOCRIT 28.9 % (42-52); IG% 0.3 %; LYMPH % 3.8 %; LYMPH ABS # 0.24 K/uL (1.2-3.4); MEAN CELL VOLUME 81.9 fL (80-100); MEAN CORPUSCULAR HEMOGLOBIN 26.3 pg (25-34); MEAN CORPUSCULAR HGB CONC 32.2 g/dl (32-36); MEAN PLATELET VOLUME 9.5 fL (7.4-10.4); MONO % 3.3 %; NEUT % 91.3 %; PLATELET COUNT 241 K/uL (130-400); RED BLOOD COUNT 3.53 M/uL (4.7-6.1); WHITE BLOOD COUNT 6.38 K/uL (4.8-10.8)
[2017-02-14 06:38] LABS: BUN/CREATININE RATIO 15.1 (10-20); C-REACTIVE PROTEIN 16.7 mg/dl (0-0.29); CALCIUM 7.7 mg/dl (8.5-10.1); CREATININE 0.66 mg/dl (0.60-1.40); POTASSIUM 3.6 mmol/L (3.5-5.1)
[2017-02-14] MEDS: BUDESONIDE/FORMOTEROL FUMARATE 160/4.5 60 PUFFS/INHALER INH SCH ×2 (09:18→21:25)
[2017-02-14] MEDS: PANTOprazole SOD 40 MG TAB PO SCH (09:18)
[2017-02-14] MEDS: MULTIVITAMIN TAB PO SCH (09:19)
[2017-02-14] MEDS: METRONIDAZOLE 500 MG TAB PO SCH ×3 (09:19→21:24)
[2017-02-14] MEDS: LIDODERM (LIDOCAINE) PATCH 5% TD SCH (09:19)
[2017-02-14] MEDS: METOPROLOL SUCC 25MG EXT REL TAB PO SCH (09:19)
[2017-02-14] MEDS: ENOXAPARIN 40 MG/0.4 ML SYR SC SCH (09:20)
[2017-02-14] MEDS: BOOST PLUS VANILLA PO SCH ×6 (09:25→16:45)
--- NOTE | 2017-02-14 09:59 | Progress Note ---
Internal Med Progress Note Date of Service: February 14, 2017. Provider Documentation: SUBJECTIVE: Seen and examined at bedside. Patient states he is feeling lot better today. His mental status seemed to be back to baseline. Patient was febrile this morning. States back pain is chronic and is at baseline. Denies chest pain, SOB , abd pain, urinary symptoms, diarrhea, headache, blurry vision OBJECTIVE: Vital Signs-as noted below Physical Exam: General Appearance:Moderately built and nourished, no apparent distress Head: normocephalic, Atraumatic Eyes: normal inspection, EOMI, PERRLA Neck: supple, Trachea midline Respiratory/Chest: Normal breath sounds, CTA Cardiovascular: S1, S2, No murmur Abdomen/GI:Soft, Non tender, Bowel sounds present Extremities/Musculoskelatal:normal inspection, no edema Neurologic/Psych:grossly no focal neurological deficits Skin: normal color, warm Lab data as noted below. ASSESSMENT & PLAN: Patient is 76 yr male who presented with confusion, fever, urine and stool incontinence in the setting of severe lower back pain. Patient has h/o lung cancer s/p lobectomy. Encephalopathy: DD: Secondary to infection with possible source:spinous process/Discitis: L2 tenderness in setting of known old compression fracture in the area H/O stool incontinence: Stool for C.diff pending To R/O SURFACE LOGGING SYSTEMS LOGGER causes: denies headache, neck stiffness, blurry vision CT head, Urine, CXR are unremarkable Blood cultures from 02/13: no growth to date, Follow up repeat cultures Ortho Spine consulted Leukocytosis resolved On Flagyl, Will add Vanco and Zosyn Will consult ID Chronic Hyponatremia: Family reports patient drinks lot of water on daily basis Continue IV fluids Fluid restriction Monitor sodium levels Chronic back pain: Fentanyl patch 25mcg held, PRN Percocet Hypertension: continue Norvasc, Losartan and hydralazine Chronic anemia: Hb at baseline Chronic hypoxic resp failure secondary to COPD on home O2 stable, no acute exacerbation continue home inhalers SSS sp PPM H/O AAA/PVD S/P surgery H/O Lung/Colon cancer: S/P surgery H/O Zenker's diverticulum: Slippery diet needed 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 Vital Signs: Date Time Temp Pulse Resp B/P Pulse Ox O2 Delivery O2 Flow Rate FiO2 02/14/17 08:00 Nasal Cannula 4.0 02/14/17 06:46 37.3 02/14/17 05:15 38.0 02/14/17 04:00 97 Nasal Cannula 4.0 02/14/17 03:25 36.7 87 20 131/53 97 Nasal Cannula 4.0 02/14/17 01:20 37.1 02/14/17 01:17 92 Nasal Cannula 4.0 02/13/17 22:58 36.8 78 20 123/62 97 Nasal Cannula 4.0 02/13/17 20:00 Nasal Cannula 4.0 02/13/17 19:03 38.5 92 22 149/67 100 Nasal Cannula 2.0 02/13/17 17:06 36.9 16 160/72 02/13/17 16:00 Nasal Cannula 3.0 02/13/17 12:00 Nasal Cannula 3.0 02/13/17 11:11 36.4 70 18 119/63 95 Room Air Lab Results: Results Past 24 Hours Test 02/13/17 15:53 02/13/17 16:32 02/13/17 17:24 02/14/17 05:10 Range/Units Sodium Level 132 128 136-145 mmol/L Potassium Level 4.2 3.6 3.5-5.1 mmol/L Chloride Level 100 97 98-107 mmol/L Carbon Dioxide Level 23 22 21-32 mmol/L Anion Gap 9.0 9.0 3-11 mmol/L Blood Urea Nitrogen 11 10 7-18 mg/dl Creatinine 0.75 0.66 0.60-1.40 mg/dl Est Creatinine Clear Calc Drug Dose 84.8 96.0 ml/min Estimated GFR () 102.6 108.1 Estimated GFR (Non- 88.5 93.3 BUN/Creatinine Ratio 15.1 15.1 10-20 Random Glucose 100 92 70-99 mg/dl Calcium Level 8.3 7.7 8.5-10.1 mg/dl C-Reactive Protein 21.80 16.70 0-0.29 mg/dl Erythrocyte Sedimentation Rate 39 38 0-14 mm/hr Bedside Glucose 99 70-99 mg/dl White Blood Count 6.38 4.8-10.8 K/uL Red Blood Count 3.53 4.7-6.1 M/uL Hemoglobin 9.3 14.0-18.0 g/dL Hematocrit 28.9 42-52 % Mean Corpuscular Volume 81.9 80-100 fL Mean Corpuscular Hemoglobin 26.3 25-34 pg Mean Corpuscular Hemoglobin Concent 32.2 32-36 g/dl Platelet Count 241 130-400 K/uL Mean Platelet Volume 9.5 7.4-10.4 fL Neutrophils (%) (Auto) 91.3 % Lymphocytes (%) (Auto) 3.8 % Monocytes (%) (Auto) 3.3 % Eosinophils (%) (Auto) 1.1 % Basophils (%) (Auto) 0.2 % Neutrophils # (Auto) 5.83 1.4-6.5 K/uL Lymphocytes # (Auto) 0.24 1.2-3.4 K/uL Monocytes # (Auto) 0.21 0.11-0.59 K/uL Eosinophils # (Auto) 0.07 0-0.5 K/uL Basophils # (Auto) 0.01 0-0.2 K/uL RDW Standard Deviation 47.6 36.4-46.3 fL RDW Coefficient of Variation 15.8 11.5-14.5 % Immature Granulocyte % (Auto) 0.3 % Immature Granulocyte # (Auto) 0.02 0.00-0.02 K/uL Test 02/14/17 06:30 Range/Units Bedside Glucose 103 70-99 mg/dl Microbiology Results 02/13/17 Blood Culture, Received Pending 02/13/17 Blood Culture, Received Pending
[2017-02-14] MEDS ORDERED: VANCOMYCIN CONSULT ACTIVE PRN (10:45)
[2017-02-14] MEDS ORDERED: PIPERACILL/TAZOBAC CONSULT ACTIVE PRN (10:45)
[2017-02-14] MEDS ORDERED: PIPERACILL/TAZOBAC IV 3.375 GM in DEXTROSE 5% 100ML IV ONE (11:00)
[2017-02-14] MEDS ORDERED: VANCOMYCIN INJ 1,800 MG in SODIUM CHLORIDE 0.9% 500ML 500 ML IV SCH (11:30)
[2017-02-14] MEDS: OXYCODONE HCL IR 5 MG TAB (IMMEDIATE RELEASE) PO PRN (12:30)
--- NOTE | 2017-02-14 12:34 | DIAGNOSTIC IMAGING REPORT ---
CT SCAN OF THE LUMBAR SPINE COMBO CLINICAL HISTORY: Chronic low back pain. Fever. COMPARISON STUDY: Abdominal CT scans dated 02/13/2017, 01/04/2017, and 11/17/2013. TECHNIQUE: Before and following the IV administration of 91 cc of Optiray 320, CT scan of the lumbar spine is performed from the lower thoracic spine to the sacrum. Images were reviewed in the axial, sagittal, and coronal planes. IV contrast was administered without complication. CT DOSE: 1240.09 mGy.cm FINDINGS: The skeletal structures are osteopenic. There is no evidence of acute fracture or malalignment. There is a chronic [id number] superior endplate compression deformity of L2. There is increasing sclerosis of the L2 vertebral body as compared to 2013. This is unchanged from 01/04/2017. No paravertebral edema is identified at this level. No retropulsed fragments are seen at this level. The vertebral body height is otherwise maintained throughout the lumbar spine. There is minimal retrolisthesis at L3-L4. Alignment is otherwise preserved. There is straightening of the lumbar lordosis. There is no evidence of spondylolysis. The transverse and spinous processes are intact. No lytic or blastic lesions are seen. Anterior osteophytes are seen throughout. There is partial sacralization of L5, and bony fusion of the posterior elements at L5-S1. Advanced degenerative disc space narrowing is seen at L4-L5 and L5-S1. Pnhn-ul-yaegocfi disc space narrowing is seen at the remaining lumbar levels. Degenerative endplate sclerosis is seen at L3-L4 and L4-L5. Posterior disc osteophyte complexes are seen at L2-L3, L3-L4, and L4-L5. There is no evidence of large disc herniation or high-grade central canal stenosis. There is no evidence of abnormal enhancement within the disc spaces on the postcontrast images, and no evidence of enhancing epidural collection. The visualized sacrum and bony pelvis appear intact. Degenerative change is noted in the sacroiliac joints. There is evidence of aortobiiliac bypass grafting. A left adrenal nodule is unchanged from multiple prior studies. IMPRESSION: 1. No acute bony abnormality is identified in the lumbar spine. 2. A chronic compression deformity of L2 is unchanged from previous. 3. Although there is superior endplate irregularity involving the L2 vertebral body, this is unchanged from 01/04/2017 and there is no associated abnormal enhancement or paravertebral edema at this level. There is no convincing CT evidence of discitis/osteomyelitis. 4. Osteopenia and spondylotic change as above. 5. There is no evidence of enhancing epidural collection on the postcontrast images. Dictated: 02/14/2017 12:16 PM Transcribed: 02/14/2017 12:34 PM [email or web address] Electronically signed by: Leandro Valdez M.D. 02/14/2017 1:19 PM Dictated Date/Time: 02/14/2017 12:16 PM
--- NOTE | 2017-02-14 13:21 | Medical Consult ---
Consultation Date of Consultation: February 14, 2017. Attending Physician: Mark Nickerson MD Reason for Consultation: [facility] [place] History of Present Illness Patient is a 76-year-old male who presents to the emergency department with complaints of fever at home and altered mental status prior to admission. The patient's stated that his temperature was up to 102 F at home. The patient had been experiencing some mild shortness of breath, fatigue, and stool incontinence as well at home. The patient has experienced multiple falls at home recently well. Since admission, he has been noted fever up to 38.5 C. His fever is not consistent, but he has had fever on an off throughout the day. His white blood cell count on admission was 16.31. His ESR was 39, and C reactive protein was 21.80. The patient's creatinine has been stable throughout admission and was noted to be 0.66 today. His C reactive protein and decreased slightly to 16.70 today. His initial blood cultures are showing no growth to date, and urine culture is also showing no growth to date. A head CT scan showed no acute process. Chest CTA showed no evidence of pulmonary embolus, advanced emphysema, and no evidence of airspace consolidation. CT of the abdomen/pelvis showed no acute infectious or inflammatory findings. The patient was placed empirically on IV Zosyn, vancomycin, and Flagyl. Patient does also have history of Colon Cancer, Lung Cancer, and Zenker's Diverticulum. He has not however had any problems with swallowing, headache, neck pain, sputum production, abdominal pain, diarrhea, urinary symptoms, or peripheral edema. The patient denies recent travel outside of [place]. He has not had any contact with cattle or exotic animals. He has 1 dog at home, but has not noted many ticks on his dogs. He states that he did have a tick bite multiple years ago, but none recently. He denies arthralgias or myalgias. Past Medical/Surgical History Medical Problems: (1) Cardiac ischemia Status: Acute (2) Confusion Status: Acute (3) Lactic acidosis Status: Acute (4) Pneumonia Status: Acute (5) Pneumonia Status: Acute (6) Sepsis Status: Acute (7) Sepsis Status: Acute (8) Sepsis Status: Acute (9) Sinus tachycardia Status: Acute (10) SOB (shortness of breath) Status: Acute (11) Upper GI bleeding Status: Acute Medical Problems: (1) Aneurysm artery, femoral (2) Cerebrovascular event (3) Chronic anticoagulation (4) Chronic respiratory failure with hypoxia (5) Colon cancer (6) COPD (chronic obstructive pulmonary disease) (7) Encephalopathy (8) H/O: lung cancer (9) HLD (hyperlipidemia) (10) Hypertension (11) Pacemaker (12) Peripheral vascular disease (13) Pulmonary embolus Surgical Problems: (1) H/O hernia repair (2) History of back surgery (3) S/P AAA repair (4) S/P lobectomy of lung (5) S/P partial colectomy (6) S/P tonsillectomy Family History FHx: cancer SISTER FHx: heart disease FATHER SISTER FHx: hypertension FHx: lung disease Stroke MOTHER Noncontributory Social History Smoking Status: Former Smoker Drug Use: none Marital Status: Housing Status: lives with family Occupation Status: retired Allergies Coded Allergies: No Known Allergies (Verified , 02/13/17) Home Medications Reported Home Medications Medications Dose Route/Sig Max Daily Dose Days Date Category Dose Instructions Metoprolol Succinate ER (Metoprolol Succinate) 25 Mg Tabcr 25 Mg PO DAILY 02/13/17 Reported Prednisone 10 Mg Tab 10 Mg PO UD PRN 02/13/17 Reported 4 TABS X 4 DAYS 3 TABS X 4 DAYS 2 TABS X 4 DAYS 1 TABS X 4 DAYS Augmentin 875-125 mg (Amoxicillin & Pot Clavulanate) 1 Tab Tab 1 Tab PO BID PRN 10 02/13/17 Reported Zofran (Ondansetron HCl) 4 Mg Tab 4 Mg PO Q6 PRN 02/13/17 Reported Marinol (Dronabinol) 5 Mg Cap 5 Mg PO BIDM 02/13/17 Reported Fentanyl 25 Mcg Tdsy 25 Mcg TOP [id number] 02/13/17 Reported Percocet 10MG/325MG (Oxycodone/Acetaminophen) Tab 1 Tab PO Q6 PRN 09/21/16 Reported Apresoline (Hydralazine Hcl) 50 Mg Tab 25 Mg PO TID 09/20/16 Reported Vitamin D (Cholecalciferol) 1,000 Unit Tab 2 Tab PO QPM 08/22/16 Reported Ativan (Lorazepam) 0.5 Mg Tab 0.5 Mg PO TID PRN 08/22/16 Reported Protonix (Pantoprazole Sodium) 40 Mg Tab 40 Mg PO DAILY 08/22/16 Reported Aspirin Chewable (Aspirin) 81 Mg Chew 81 Mg PO QPM 08/22/16 Reported Norvasc (Amlodipine Besylate) 10 Mg Tab 10 Mg PO QAM 08/22/16 Reported Senokot S (Senna/Docusate Sodium) 1 Tab Tab 1 Tab PO QAM PRN 07/16/16 Reported Oxygen Gas 3 Liters NA CONTINOUS 07/02/16 Reported Flexeril (Cyclobenzaprine Hcl) 10 Mg Tab 1 Tab PO TID PRN 30 07/02/16 Reported Lioresal (Baclofen) 10 Mg Tab 20 Mg PO TID 07/02/16 Reported Ambien (Zolpidem Tartrate) 10 Mg Tab 1 Tab PO HS PRN 30 07/02/16 Reported Lipitor (Atorvastatin Calcium) 40 Mg Tab 40 Mg PO HS 07/02/16 Reported Symbicort 160/4.5 Inhaler (Budesonide/Formoterol Fumarate) Aero 2 Puffs INH BID 10/06/15 Reported Combivent Respimat (Ipratropium-Albuterol) 1 Aer Aer 2 Puffs INH QID 01/25/15 Reported Ventolin Hfa (Albuterol) 60 Puffs/5400 Mcg Aers 2 Puffs INH QID PRN 01/25/15 Reported Cozaar (Losartan Potassium) 100 Mg Tab 100 Mg PO QPM 11/24/14 Reported Centrum (Multiple Vitamins W/ Minerals) 1 Chw Chw 1 Chw PO QPM 11/04/13 Reported Current Inpatient Medications Current Inpatient Medications Medications (Trade) Dose Ordered Sig/Andrae Route Start Time Stop Time Status Last Admin Dose Admin Metronidazole (Flagyl Tab) 500 mg TID PO 02/13/17 09:00 02/23/17 08:59 02/14/17 09:19 500 MG Ioversol (Optiray 320) 100 ml UD PRN IV 02/13/17 02:45 02/17/17 02:44 Aspirin (Ecotrin Tab) 81 mg QPM PO 02/13/17 21:00 03/15/17 20:59 02/13/17 20:52 81 MG Atorvastatin Calcium (Lipitor Tab) 40 mg HS PO 02/13/17 21:00 03/15/17 20:59 02/13/17 20:52 40 MG Budesonide/ Formoterol Fumarate (Symbicort 160/ 4.5 Inh) 2 puffs BID INH 02/13/17 09:00 03/15/17 08:59 02/14/17 09:18 2 PUFFS Metoprolol Succinate (Toprol Xl Tab) 25 mg DAILY PO 02/13/17 09:00 03/15/17 08:59 02/14/17 09:19 25 MG Pantoprazole Sodium (Protonix Tab) 40 mg DAILY PO 02/13/17 09:00 03/15/17 08:59 02/14/17 09:18 40 MG Multivitamins (Multivitamin Tab) 1 tab QAM PO 02/13/17 09:00 03/15/17 08:59 02/14/17 09:19 1 TAB Enoxaparin Sodium (Lovenox Inj) 40 mg Q24H SC 02/13/17 09:00 03/15/17 08:59 02/14/17 09:20 40 MG Acetaminophen (Tylenol Tab) 650 mg Q4H PRN PO 02/13/17 02:45 03/15/17 02:44 Future Hold Nitroglycerin (Nitrostat Tab) 0.4 mg UD PRN SL 02/13/17 02:45 03/15/17 02:44 Albuterol/ Ipratropium (Duoneb) 3 ml Q2H PRN INH 02/13/17 03:45 03/15/17 03:44 Enteral Nutritional Formula (Boost Plus Vanilla) 1 can TIDM PO 02/13/17 16:45 03/15/17 16:44 02/14/17 12:19 1 CAN Acetaminophen (Tylenol Tab) 1,000 mg Q8 PO 02/13/17 17:45 03/15/17 17:44 02/14/17 05:39 1,000 MG Oxycodone HCl (Roxicodone Immediate Rel Tab) 5 mg Q4H PRN PO 02/13/17 17:45 02/27/17 17:44 02/14/17 12:30 5 MG Lidocaine (Lidoderm Patch 5%) 1 patch QAM TD 02/14/17 09:00 03/16/17 08:59 02/14/17 09:19 1 PATCH Miscellaneous 1 ea 1 ea DAILY@21 N/A 02/13/17 21:00 03/15/17 20:59 Vancomycin HCl 1000 mg/Sodium Chloride 270 ml @ 125 mls/hr Q12H IV 02/14/17 22:00 02/16/17 21:59 Piperacillin Sod/ Tazobactam Sod/ Dextrose (Zosyn Iv/D5 100ml) 115 ml @ 28.75 mls/ hr Q8H IV 02/14/17 16:00 02/16/17 15:59 Piperacillin Sod/ Tazobactam Sod (Consult) 1 ea UD PRN N/A 02/14/17 10:45 03/16/17 10:44 Vancomycin HCl 1 ea 1 ea UD PRN N/A 02/14/17 10:45 03/16/17 10:44 Vancomycin HCl/ Sodium Chloride (Vancomycin Inj/ Nss 500ml) 536 ml @ 200 mls/hr TODAY@1130 IV 02/14/17 11:30 02/14/17 14:11 02/14/17 12:19 200 MLS/HR Review of Systems Constitutional: + chills, + fatigue, + fever, + sweats, + weakness Eyes: No worsening of vision ENT: No hearing loss Respiratory: + cough, No shortness of breath Cardiovascular: No chest pain Abdomen: No diarrhea, No nausea, No pain, No vomiting Musculoskeletal: No joint pain, No muscle pain, No swelling Genitourinary - Male: No dysuria, No hematuria Integumentary: + color change (bruising of the arms), No itch, No new/changing skin lesions, No rash Physical Exam Date Time Temp Pulse Resp B/P Pulse Ox O2 Delivery O2 Flow Rate FiO2 02/14/17 08:00 Nasal Cannula 4.0 02/14/17 06:46 37.3 02/14/17 05:15 38.0 02/14/17 04:00 97 Nasal Cannula 4.0 02/14/17 03:25 36.7 87 20 131/53 97 Nasal Cannula 4.0 02/14/17 01:20 37.1 02/14/17 01:17 92 Nasal Cannula 4.0 02/13/17 22:58 36.8 78 20 123/62 97 Nasal Cannula 4.0 02/13/17 20:00 Nasal Cannula 4.0 02/13/17 19:03 38.5 92 22 149/67 100 Nasal Cannula 2.0 02/13/17 17:06 36.9 16 160/72 02/13/17 16:00 Nasal Cannula 3.0 General Appearance: WD/WN, no apparent distress Head: normocephalic, atraumatic Eyes: normal inspection, sclerae normal ENT: hearing grossly normal Neck: supple, trachea midline Respiratory/Chest: chest non-tender, lungs clear, normal breath sounds, no respiratory distress, no accessory muscle use Cardiovascular: regular rate, rhythm, no murmur Abdomen/GI: normal bowel sounds, non tender, soft Back: normal inspection, + pertinent finding (Slight pain to palpatoin of lower lumbar spine) Extremities/Musculoskelatal: normal inspection, no calf tenderness, no pedal edema Neurologic/Psych: alert, normal mood/affect Skin: normal color, warm/dry, no rash Laboratory Results CT SCAN OF THE ABDOMEN AND PELVIS WITHOUT IV CONTRAST CLINICAL HISTORY: Generalized abdominal pain. COMPARISON STUDY: Abdominal CT dated 01/04/2017. TECHNIQUE: CT scan of the abdomen and pelvis is performed from the lung bases to the proximal femora. Images are reviewed in the axial, sagittal, and coronal planes. IV contrast was not administered for this examination as per the referring clinician. Note that the examination was performed in suboptimal fashion without oral and IV contrast. Automated dose control exposure was utilized. CT DOSE: 320.45 mGy.cm FINDINGS: Lung bases: The heart is mildly enlarged and without pericardial effusion. Pacemaker leads are noted. The coronary arteries are densely calcified. There is a tiny hiatal hernia. Advanced emphysema is present at the lung bases. Postoperative change and scarring in the left lower lobe with elevation of left hemidiaphragm is again noted Liver: The unenhanced liver is normal in size, contour, and attenuation. There is no intrahepatic biliary ductal dilatation. Gallbladder: There are numerous small calcified gallstones. There is no clear CT evidence of acute cholecystitis. Spleen: Normal in size and attenuation. Pancreas: The unenhanced pancreas is moderately atrophic and grossly unremarkable. Adrenal glands: A 1.9 cm left adrenal nodule is unchanged. The right adrenal gland is unremarkable. Kidneys: The unenhanced kidneys are atrophic and without hydronephrosis. Excreted contrast is present within the renal pelvis bilaterally and the ureters. This degrades assessment for nephrolithiasis. There is no evidence of contour deforming renal mass lesion. Abdominal vasculature: There is advanced atherosclerotic calcification of the abdominal aorta. No aneurysm is seen. There are postoperative changes from aortobiiliac bypass grafting. A stent is noted in the [place] right external iliac artery. There are stents present at the common femoral arteries at the anastomoses. Bowel: There are postoperative changes consistent with right hemicolectomy and ileocolic anastomosis. No bowel obstruction is seen. Moderate fecal retention is noted in the visualized colon. The appendix is surgically absent. Peritoneum: There is no intraperitoneal free air or abdominal ascites. Lymphadenopathy: None. Pelvic viscera: The bladder so with excreted contrast and grossly unremarkable. The prostate gland and seminal vesicles are normal as visualized. Postoperative change is present in the groin bilaterally. Skeletal structures: The skeletal structures are osteopenic. There is a moderate chronic compression deformity of L2. Moderate lumbar sacral spondylosis is observed. No lytic or blastic lesions are seen. IMPRESSION: 1. There are no acute infectious or inflammatory findings in the abdomen or pelvis. 2. There are postoperative changes from right hemicolectomy with ileocolic anastomosis. No bowel obstruction is seen. 3. Moderate colonic fecal retention is observed. 4. Cholelithiasis. 5. Advanced atherosclerotic change with postoperative change/bypass grafting as above. 6. Cardiomegaly and advanced emphysema. 7. A chronic compression deformity of L2 is similar to previous. 8. Additional findings as above. Item Value Date Time Miscellaneous 1 ea 02/13/17 2100 (Remove Lidoderm DAILY@21/N/A Patch) MRSA DNA Surveillance Screen Received 02/14/17 2115 Nasal Pending Blood Culture Received 02/13/17 2211 Blood Pending Blood Culture Received 02/13/17 2208 Blood Pending Urine Culture - Preliminary Resulted 02/13/17 0015 Urine , Clean Catch NO GROWTH - LESS THAN 1,000 COLONIES/... Blood Culture - Preliminary Resulted 02/13/17 0010 Blood NO GROWTH TO DATE. Blood Culture - Preliminary Resulted 02/12/17 2355 Blood NO GROWTH TO DATE. Last 24 Hours Test 02/13/17 15:53 02/13/17 16:32 02/13/17 17:24 02/14/17 05:10 Sodium Level 132 mmol/L 128 mmol/L Potassium Level 4.2 mmol/L 3.6 mmol/L Chloride Level 100 mmol/L 97 mmol/L Carbon Dioxide Level 23 mmol/L 22 mmol/L Anion Gap 9.0 mmol/L 9.0 mmol/L Blood Urea Nitrogen 11 mg/dl 10 mg/dl Creatinine 0.75 mg/dl 0.66 mg/dl Est Creatinine Clear Calc Drug Dose 84.8 ml/min 96.0 ml/min Estimated GFR () 102.6 108.1 Estimated GFR (Non- 88.5 93.3 BUN/Creatinine Ratio 15.1 15.1 Random Glucose 100 mg/dl 92 mg/dl Calcium Level 8.3 mg/dl 7.7 mg/dl C-Reactive Protein 21.80 mg/dl 16.70 mg/dl Erythrocyte Sedimentation Rate 39 mm/hr 38 mm/hr Bedside Glucose 99 mg/dl White Blood Count 6.38 K/uL Red Blood Count 3.53 M/uL Hemoglobin 9.3 g/dL Hematocrit 28.9 % Mean Corpuscular Volume 81.9 fL Mean Corpuscular Hemoglobin 26.3 pg Mean Corpuscular Hemoglobin Concent 32.2 g/dl Platelet Count 241 K/uL Mean Platelet Volume 9.5 fL Neutrophils (%) (Auto) 91.3 % Lymphocytes (%) (Auto) 3.8 % Monocytes (%) (Auto) 3.3 % Eosinophils (%) (Auto) 1.1 % Basophils (%) (Auto) 0.2 % Neutrophils # (Auto) 5.83 K/uL Lymphocytes # (Auto) 0.24 K/uL Monocytes # (Auto) 0.21 K/uL Eosinophils # (Auto) 0.07 K/uL Basophils # (Auto) 0.01 K/uL RDW Standard Deviation 47.6 fL RDW Coefficient of Variation 15.8 % Immature Granulocyte % (Auto) 0.3 % Immature Granulocyte # (Auto) 0.02 K/uL Test 02/14/17 06:30 Bedside Glucose 103 mg/dl Assessment & Plan Patient with altered mental status, fever, and leukocytosis of unknown origin. He is currently on IV vancomycin and Zosyn. The patient is also on oral metronidazole. His initial blood cultures and urine culture are showing no growth. He does have some chronic lumbar back pain, and Ortho Spine consult is pending. He does not appear to have any focus of infection currently, but will await final cultures and Ortho Spine evaluation to discontinue antibiotic therapy. We will follow. Case reviewed and agree with above assessment.
--- NOTE | 2017-02-14 14:59 | CONSULTATION REPORT ---
DATE OF CONSULTATION: 02/14/2017 DATE OF CONSULTATION: 02/14/2017. HISTORY OF PRESENT ILLNESS: A pleasant 76-year-old female who we were asked to consult in regards to lower back pain and fever. The patient was admitted via the Emergency Room on 02/12/2017 with a fever for about a day prior to admission as well as altered mental status. His brought him into the Emergency Room. He is admitted to the hospitalist service. Upon questioning him he reports he has had chronic back pain since the . He has had prior lumbar surgery nonspecific in [place], [place] in 1976. He reports "I have had problems ever since." He really cannot recall if he has any radicular leg pain. He does ambulate with assistance at home sometimes. He denies bowel or bladder changes. He has not had any recent treatment. He states his pain is his normal baseline level of pain as what it has been for years. PAST MEDICAL HISTORY: The patient's medical history is significant for aneurysm, CVA, chronic respiratory failure, colon cancer, COPD, encephalopathy, history of lung cancer, hyperlipidemia, hypertension, peripheral vascular disease, PE. PAST SURGICAL HISTORY: Significant for hernia repair, back surgery, triple AAA, lobectomy of the lung, partial colectomy and a tonsillectomy and pacemaker. SOCIAL HISTORY: He is . Lives with his family, former smoker. He is retired. ALLERGIES: None listed. MEDICATIONS: At home include Norvasc, aspirin, Lipitor, baclofen, Symbicort, vitamin D, Marinol, fentanyl, hydralazine HCL, Combivent, Cozaar, metoprolol, home oxygen 3 liters, Centrum, Protonix, albuterol, Flexeril, Ativan, Zofran, Percocet 10/325, prednisone, Senokot, Ambien. REVIEW OF SYSTEMS: Significant for back pain. PHYSICAL EXAMINATION: Limited to the musculoskeletal system. He is alert and oriented x3. Upon examination he is in no obvious distress. He is able to roll over comfortably in bed as well as set up for me. He has no lacerations or skin breakdown at the lumbar spine. He is nontender to percussion and palpation to the thoracolumbar spine. He has a well-healed midline lumbar incision. Lower extremity strength is intact bilaterally. Negative tension sign. Negative axial loading bilaterally. Strength is intact bilaterally. No evidence of ankle clonus. ASSESSMENT: Lower back pain with fever. PLAN: At this point in time, he reports he is at his baseline chronic level of back pain. No acute increase or changes. He has a pacemaker and therefore unable to pursue MRI of the lumbar spine to rule out acute infection. We will therefore proceed with CT scan with and without contrast to evaluate if his fever is related to his lower back. We will make further recommendations upon CT scan review.
--- NOTE | 2017-02-14 17:08 | Pharmacy Progress Note ---
Pharmacy Antibiotic Consult Date of Service: February 14, 2017. Pharmacy Dosing Scope Pharmacy is consulted to initiate vancomycin and Zosyn IV dosing therapy, order appropriate labs and adjust drug dose/frequency. Subjective The patient is a 76 year old male admitted on February 13, 2017 at 02:32 with altered mental status, fever, and leukocytosis of unknown origin. Objective Height (Feet): 6 Height (Inches): 0.00 Weight (Kilograms): 72.400 Lab Results (24hrs): Test 02/13/17 17:24 02/14/17 05:10 02/14/17 06:30 Bedside Glucose 99 mg/dl (70-99) 103 mg/dl (70-99) White Blood Count 6.38 K/uL (4.8-10.8) Red Blood Count 3.53 M/uL (4.7-6.1) Hemoglobin 9.3 g/dL (14.0-18.0) Hematocrit 28.9 % (42-52) Mean Corpuscular Volume 81.9 fL (80-100) Mean Corpuscular Hemoglobin 26.3 pg (25-34) Mean Corpuscular Hemoglobin Concent 32.2 g/dl (32-36) Platelet Count 241 K/uL (130-400) Mean Platelet Volume 9.5 fL (7.4-10.4) Neutrophils (%) (Auto) 91.3 % Lymphocytes (%) (Auto) 3.8 % Monocytes (%) (Auto) 3.3 % Eosinophils (%) (Auto) 1.1 % Basophils (%) (Auto) 0.2 % Neutrophils # (Auto) 5.83 K/uL (1.4-6.5) Lymphocytes # (Auto) 0.24 K/uL (1.2-3.4) Monocytes # (Auto) 0.21 K/uL (0.11-0.59) Eosinophils # (Auto) 0.07 K/uL (0-0.5) Basophils # (Auto) 0.01 K/uL (0-0.2) RDW Standard Deviation 47.6 fL (36.4-46.3) RDW Coefficient of Variation 15.8 % (11.5-14.5) Immature Granulocyte % (Auto) 0.3 % Immature Granulocyte # (Auto) 0.02 K/uL (0.00-0.02) Erythrocyte Sedimentation Rate 38 mm/hr (0-14) Sodium Level 128 mmol/L (136-145) Potassium Level 3.6 mmol/L (3.5-5.1) Chloride Level 97 mmol/L (98-107) Carbon Dioxide Level 22 mmol/L (21-32) Anion Gap 9.0 mmol/L (3-11) Blood Urea Nitrogen 10 mg/dl (7-18) Creatinine 0.66 mg/dl (0.60-1.40) Est Creatinine Clear Calc Drug Dose 96.0 ml/min Estimated GFR () 108.1 Estimated GFR (Non- 93.3 BUN/Creatinine Ratio 15.1 (10-20) Random Glucose 92 mg/dl (70-99) Calcium Level 7.7 mg/dl (8.5-10.1) C-Reactive Protein 16.70 mg/dl (0-0.29) Micro Results: Blood cx show no growth to date. Recent Pertinent Medications Flagyl 500mg PO tid Assessment & Plan Patient is ordered IV vancomycin and Zosyn empirically for altered mental status, fever, and leukocytosis of unknown origin. Ortho is also consulted for severe lower back pain. Continue abx until cx obtained. Vancomycin: Loading dose: 1800mg IV X 1 dose (25mg/kg) then: 1000 mg IV every 12 hours. Goal peak level estimate: between 35 - 40 mcg/mL. Goal trough level estimate: between 15 - 19 mcg/mL. Peak and trough or random level has been ordered for: 02/16 prior to 1000 dose. Zosyn 3.375gm IV q8h extended infusion for CrCr > 30ml/min. Pharmacy will continue to follow and will adjust dose/frequency as necessary. Thank you
[2017-02-14] MEDS: PIPERACILL/TAZOBAC IV 3.375 GM in DEXTROSE 5% 100ML 100 ML IV SCH ×2 (17:22→23:48)
[2017-02-14] MEDS: ATORVASTATIN 40 MG TAB PO SCH (21:24)
[2017-02-14] MEDS: ASPIRIN 81 MG ECTAB PO SCH (21:24)
[2017-02-14] MEDS: VANCOMYCIN INJ 1,000 MG in SODIUM CHLORIDE 0.9% 250ML 250 ML IV SCH (21:25)
[2017-02-15] MEDS: ZOLPIDEM TARTRATE 5 MG TAB PO PRN ×2 (01:28→20:48)
[2017-02-15 04:00] VITALS: BP 115/56; PULSE 74; TEMP 36.6; O2SAT 94
[2017-02-15] MEDS: ACETAMINOPHEN 500 MG TAB PO SCH ×3 (06:00→20:48)
[2017-02-15 06:12] LABS: BASO % 1.3 %; BASO ABS # 0.03 K/uL (0-0.2); HEMATOCRIT 27.3 % (42-52); IG% 0.4 %; LYMPH % 13.2 %; MEAN CELL VOLUME 82.7 fL (80-100); MEAN CORPUSCULAR HGB CONC 32.6 g/dl (32-36); MEAN PLATELET VOLUME 9.9 fL (7.4-10.4); MONO % 7.9 %; NEUT % 77.2 %; PLATELET COUNT 214 K/uL (130-400); WHITE BLOOD COUNT 2.27 K/uL (4.8-10.8)
[2017-02-15 06:44] LABS: BUN/CREATININE RATIO 16.3 (10-20); CALCIUM 8.3 mg/dl (8.5-10.1); CREATININE 0.68 mg/dl (0.60-1.40); POTASSIUM 3.2 mmol/L (3.5-5.1)
[2017-02-15 06:54] LABS: COMPLETE YES; DOHLE BODIES 1+; ECHINOCYTES 2+; VACUOLIZATION 2+
[2017-02-15 07:45] VITALS: BP 141/57; PULSE 97; TEMP 36.9; O2SAT 98
[2017-02-15] MEDS: LIDODERM (LIDOCAINE) PATCH 5% TD SCH (08:53)
[2017-02-15] MEDS: METOPROLOL SUCC 25MG EXT REL TAB PO SCH (08:54)
[2017-02-15] MEDS: MULTIVITAMIN TAB PO SCH (08:54)
[2017-02-15] MEDS: PANTOprazole SOD 40 MG TAB PO SCH (08:54)
[2017-02-15] MEDS: METRONIDAZOLE 500 MG TAB PO SCH ×3 (08:55→19:32)
[2017-02-15] MEDS: ENOXAPARIN 40 MG/0.4 ML SYR SC SCH (08:55)
[2017-02-15] MEDS: BUDESONIDE/FORMOTEROL FUMARATE 160/4.5 60 PUFFS/INHALER INH SCH ×2 (08:55→19:31)
--- NOTE | 2017-02-15 08:55 | Progress Note ---
Internal Med Progress Note Date of Service: February 15, 2017. Provider Documentation: SUBJECTIVE: Seen and examined at bedside. States not feeling well today. Poor historian. Reports SOB but denies cough, wheezing, chest pain. Mental status seemed to be back to baseline. Denies back pain, abd pain, urinary symptoms, diarrhea, headache, blurry vision. OBJECTIVE: Vital Signs-as noted below Physical Exam: General Appearance:Moderately built and nourished, no apparent distress Head: normocephalic, Atraumatic Eyes: normal inspection, EOMI, PERRLA Neck: supple, Trachea midline Respiratory/Chest: Decreased breath sounds, CTA Cardiovascular: S1, S2, No murmur Abdomen/GI:Soft, Non tender, Bowel sounds present Extremities/Musculoskelatal:normal inspection, no edema Neurologic/Psych:grossly no focal neurological deficits Skin: normal color, warm Lab data as noted below. ASSESSMENT & PLAN: Patient is 76 yr male who presented with confusion, fever, urine and stool incontinence in the setting of severe lower back pain. Patient has h/o lung cancer s/p lobectomy. 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: denies headache, neck stiffness, blurry vision CT head, Urine, CXR are unremarkable Blood/Urine cultures from 02/13: no growth to date Appreciate Ortho input On Flagyl, Vanco and Zosyn Appreciate ID input Await for final cultures prior to discontinuing antibiotics Has been afebrile since yesterday Will repeat CXR and check for Influenza Chronic Hyponatremia: Family reports patient drinks lot of water on daily basis S/P IV fluids continue Fluid restriction Monitor sodium levels improved: 132 today Hypokalemia: Replace and monitor Chronic back pain: Fentanyl patch 25mcg held, PRN Percocet Hypertension: On Norvasc, Losartan and hydralazine at home resume hydralazine today Chronic anemia: Hb at baseline Chronic hypoxic resp failure secondary to COPD on home O2 3L stable, no acute exacerbation continue home inhalers SSS sp PPM H/O AAA/PVD S/P surgery H/O Lung/Colon cancer: S/P surgery H/O Zenker's diverticulum: Slippery diet needed per prior SIDER MECHANIC evaluation High risk for aspiration Former tobacco abuse DVT Px: Lovenox SQ Code Status: Full code Disposition: Plan to transfer to medical floor Vital Signs: Date Time Temp Pulse Resp B/P Pulse Ox O2 Delivery O2 Flow Rate FiO2 02/15/17 07:45 36.9 97 20 141/57 98 2.0 02/15/17 04:00 36.6 74 18 115/56 94 Room Air 02/15/17 04:00 Room Air 02/14/17 23:59 Nasal Cannula 3.0 02/14/17 23:59 73 107/63 100 Nasal Cannula 3.0 02/14/17 23:54 36.6 73 18 92/41 94 Room Air 02/14/17 20:27 37.0 82 16 108/50 99 Room Air 02/14/17 20:00 Nasal Cannula 4.0 02/14/17 16:00 Nasal Cannula 4.0 02/14/17 15:26 37.0 95 22 134/66 98 Room Air 02/14/17 15:10 97 20 98 Nasal Cannula 4.0 02/14/17 12:00 Nasal Cannula 4.0 Lab Results: Results Past 24 Hours Test 02/15/17 05:05 Range/Units White Blood Count 2.27 4.8-10.8 K/uL Red Blood Count 3.30 4.7-6.1 M/uL Hemoglobin 8.9 14.0-18.0 g/dL Hematocrit 27.3 42-52 % Mean Corpuscular Volume 82.7 80-100 fL Mean Corpuscular Hemoglobin 27.0 25-34 pg Mean Corpuscular Hemoglobin Concent 32.6 32-36 g/dl Platelet Count 214 130-400 K/uL Mean Platelet Volume 9.9 7.4-10.4 fL Neutrophils (%) (Auto) 77.2 % Lymphocytes (%) (Auto) 13.2 % Monocytes (%) (Auto) 7.9 % Eosinophils (%) (Auto) 0.0 % Basophils (%) (Auto) 1.3 % Neutrophils # (Auto) 1.75 1.4-6.5 K/uL Lymphocytes # (Auto) 0.30 1.2-3.4 K/uL Monocytes # (Auto) 0.18 0.11-0.59 K/uL Eosinophils # (Auto) 0.00 0-0.5 K/uL Basophils # (Auto) 0.03 0-0.2 K/uL RDW Standard Deviation 46.9 36.4-46.3 fL RDW Coefficient of Variation 15.6 11.5-14.5 % Immature Granulocyte % (Auto) 0.4 % Immature Granulocyte # (Auto) 0.01 0.00-0.02 K/uL Toxic Vacuolation 2+ Dohle Bodies 1+ Echinocytes 2+ Sodium Level 132 136-145 mmol/L Potassium Level 3.2 3.5-5.1 mmol/L Chloride Level 100 98-107 mmol/L Carbon Dioxide Level 26 21-32 mmol/L Anion Gap 6.0 3-11 mmol/L Blood Urea Nitrogen 11 7-18 mg/dl Creatinine 0.68 0.60-1.40 mg/dl Est Creatinine Clear Calc Drug Dose 94.2 ml/min Estimated GFR () 106.8 Estimated GFR (Non- 92.1 BUN/Creatinine Ratio 16.3 10-20 Random Glucose 102 70-99 mg/dl Calcium Level 8.3 8.5-10.1 mg/dl Microbiology Results 02/14/17 MRSA DNA Surveillance Screen - Final, Complete Specimen Negative for MRSA by DNA Probe
[2017-02-15] MEDS: BOOST PLUS VANILLA PO SCH ×6 (08:59→16:52)
[2017-02-15] MEDS: PIPERACILL/TAZOBAC IV 3.375 GM in DEXTROSE 5% 100ML 100 ML IV SCH (08:59)
[2017-02-15] MEDS ORDERED: POTASSIUM CHLORIDE 10 MEQ TABCR PO ONE (09:00)
--- NOTE | 2017-02-15 09:38 | PROGRESS NOTE ---
DATE: 02/15/2017. SUBJECTIVE: The patient underwent a CT scan of the lumbar spine with and without contrast yesterday due to his chronic back pain and fever with altered mental status. CT scan of the lumbar spine reveals chronic compression deformity at L2 along the superior endplate. There is no evidence of osteomyelitis or discitis. No evidence of enhancing epidural abscess. There are degenerative changes and a vacuum phenomenon at L4-5. There is modest spinal stenosis centrally of L3-4, L4-5. No large disc fragments. ASSESSMENT: Chronic back pain. PLAN: At this point in time, I do not feel his lumbar spine is ideology of his fever and altered mental status. May consider pain management if the patient's pain is uncontrolled. I have nothing to offer him from a surgical standpoint at this point in time. Will sign off for now, but please do not hesitate to contact us if there are any further questions. FAY
--- NOTE | 2017-02-15 10:11 | DIAGNOSTIC IMAGING REPORT ---
CHEST ONE VIEW PORTABLE HISTORY: Short of breath. COMPARISON: Chest 02/13/2017. FINDINGS: Left-sided dual-chamber pacemaker. The heart is stable in size. Emphysema is again noted. Chronic elevation of the left hemidiaphragm with stable scarlike densities at the left lung base. No new focal lung consolidations. No evidence for pulmonary edema. No pleural effusions. IMPRESSION: No significant change compared to the prior study. Emphysema and postoperative changes at the left lung base are again noted. Electronically signed by: Jerrell Collins M.D. 02/15/2017 10:10 AM Dictated Date/Time: 02/15/2017 10:09 AM
[2017-02-15] MEDS: VANCOMYCIN INJ 1,000 MG in SODIUM CHLORIDE 0.9% 250ML 250 ML IV SCH (10:14)
[2017-02-15 11:27] VITALS: BP 131/62; PULSE 83; TEMP 36.9; O2SAT 100
[2017-02-15 11:57] LABS: INFLUENZA A PCR Neg for Influ A (NEG); INFLUENZA B PCR Neg for Influ B (NEG)
--- NOTE | 2017-02-15 12:16 | Infectious Disease Progress Nt ---
Progress Note Date of Service February 15, 2017. Subjective Pt evaluation today including: conversation w/ patient, conversation w/ family (daughter), physical exam, chart review, lab review, review of studies, review of inpatient medication list WBC today was 2.27. He continues on IV Vancomycin and Zosyn. Influenza PCR's were negative this morning. Blood and urine culture have continued to be negative. Repeat CXR showed no significant changes since prior exam. Emphysema and postoperative changes were again seen. Patient is feeling better, but he continues to have some SOB. He is anxious to go home. All Other Systems: Reviewed and Negative Medications Current Inpatient Medications Medications (Trade) Dose Ordered Sig/Andrae Route Start Time Stop Time Status Last Admin Dose Admin Metronidazole (Flagyl Tab) 500 mg TID PO 02/13/17 09:00 02/23/17 08:59 02/15/17 08:55 500 MG Ioversol (Optiray 320) 100 ml UD PRN IV 02/13/17 02:45 02/17/17 02:44 Aspirin (Ecotrin Tab) 81 mg QPM PO 02/13/17 21:00 03/15/17 20:59 02/14/17 21:24 81 MG Atorvastatin Calcium (Lipitor Tab) 40 mg HS PO 02/13/17 21:00 03/15/17 20:59 02/14/17 21:24 40 MG Budesonide/ Formoterol Fumarate (Symbicort 160/ 4.5 Inh) 2 puffs BID INH 02/13/17 09:00 03/15/17 08:59 02/15/17 08:55 2 PUFFS Metoprolol Succinate (Toprol Xl Tab) 25 mg DAILY PO 02/13/17 09:00 03/15/17 08:59 02/15/17 08:54 25 MG Pantoprazole Sodium (Protonix Tab) 40 mg DAILY PO 02/13/17 09:00 03/15/17 08:59 02/15/17 08:54 40 MG Multivitamins (Multivitamin Tab) 1 tab QAM PO 02/13/17 09:00 03/15/17 08:59 02/15/17 08:54 1 TAB Enoxaparin Sodium (Lovenox Inj) 40 mg Q24H SC 02/13/17 09:00 03/15/17 08:59 02/15/17 08:55 40 MG Acetaminophen (Tylenol Tab) 650 mg Q4H PRN PO 02/13/17 02:45 03/15/17 02:44 Future Hold Nitroglycerin (Nitrostat Tab) 0.4 mg UD PRN SL 02/13/17 02:45 03/15/17 02:44 Albuterol/ Ipratropium (Duoneb) 3 ml Q2H PRN INH 02/13/17 03:45 03/15/17 03:44 02/14/17 16:03 3 ML Enteral Nutritional Formula (Boost Plus Vanilla) 1 can TIDM PO 02/13/17 16:45 03/15/17 16:44 02/15/17 08:59 1 CAN Acetaminophen (Tylenol Tab) 1,000 mg Q8 PO 02/13/17 17:45 03/15/17 17:44 02/14/17 21:25 1,000 MG Oxycodone HCl (Roxicodone Immediate Rel Tab) 5 mg Q4H PRN PO 02/13/17 17:45 02/27/17 17:44 02/14/17 12:30 5 MG Lidocaine (Lidoderm Patch 5%) 1 patch QAM TD 02/14/17 09:00 03/16/17 08:59 02/15/17 08:53 1 PATCH Miscellaneous (Remove Lidoderm Patch) 1 ea DAILY@21 N/A 02/13/17 21:00 03/15/17 20:59 Vancomycin HCl (Consult) 1 ea UD PRN N/A 02/14/17 10:45 03/16/17 10:44 Zolpidem Tartrate (Ambien Tab) 5 mg HS PRN PO 02/15/17 01:15 03/17/17 01:14 02/15/17 01:28 5 MG Hydralazine HCl (Apresoline Tab) 25 mg TID PO 02/15/17 09:00 03/17/17 08:59 02/15/17 10:13 25 MG Levofloxacin (Levaquin Tab) 750 mg DAILY@11 PO 02/15/17 13:00 02/22/17 12:59 UNV Objective Vital Signs Date Time Temp Pulse Resp B/P Pulse Ox O2 Delivery O2 Flow Rate FiO2 02/15/17 11:27 36.9 83 20 131/62 100 2.0 02/15/17 08:00 Nasal Cannula 2.0 02/15/17 07:45 36.9 97 20 141/57 98 2.0 02/15/17 04:00 36.6 74 18 115/56 94 Room Air 02/15/17 04:00 Room Air 02/14/17 23:59 Nasal Cannula 3.0 02/14/17 23:59 73 107/63 100 Nasal Cannula 3.0 02/14/17 23:54 36.6 73 18 92/41 94 Room Air 02/14/17 20:27 37.0 82 16 108/50 99 Room Air 02/14/17 20:00 Nasal Cannula 4.0 02/14/17 16:00 Nasal Cannula 4.0 02/14/17 15:26 37.0 95 22 134/66 98 Room Air 02/14/17 15:10 97 20 98 Nasal Cannula 4.0 Physical Exam General Appearance: WD/WN, no apparent distress Eyes: normal inspection, sclerae normal ENT: hearing grossly normal Neck: supple, trachea midline Respiratory/Chest: no respiratory distress, no accessory muscle use, + decreased breath sounds (left lower lung) Cardiovascular: regular rate, rhythm Abdomen: normal bowel sounds, non tender, soft Extremities: normal range of motion, normal inspection, no pedal edema Neurologic/Psychiatric: alert, normal mood/affect Skin: normal color, warm/dry, no rash Laboratory Results CHEST ONE VIEW PORTABLE HISTORY: Short of breath. COMPARISON: Chest 02/13/2017. FINDINGS: Left-sided dual-chamber pacemaker. The heart is stable in size. Emphysema is again noted. Chronic elevation of the left hemidiaphragm with stable scarlike densities at the left lung base. No new focal lung consolidations. No evidence for pulmonary edema. No pleural effusions. IMPRESSION: No significant change compared to the prior study. Emphysema and postoperative changes at the left lung base are again noted. Item Value Date Time MRSA DNA Surveillance Screen - Final Complete 02/14/17 2115 Nasal Specimen Negative for MRSA by DNA Probe Blood Culture - Preliminary Resulted 02/13/17 2211 Blood NO GROWTH TO DATE. Blood Culture - Preliminary Resulted 02/13/17 2208 Blood NO GROWTH TO DATE. Urine Culture - Final Complete 02/13/17 0015 Urine , Clean Catch NO GROWTH - LESS THAN 1,000 COLONIES/ML Last 24 Hours Test 02/15/17 05:05 02/15/17 09:45 White Blood Count 2.27 K/uL Red Blood Count 3.30 M/uL Hemoglobin 8.9 g/dL Hematocrit 27.3 % Mean Corpuscular Volume 82.7 fL Mean Corpuscular Hemoglobin 27.0 pg Mean Corpuscular Hemoglobin Concent 32.6 g/dl Platelet Count 214 K/uL Mean Platelet Volume 9.9 fL Neutrophils (%) (Auto) 77.2 % Lymphocytes (%) (Auto) 13.2 % Monocytes (%) (Auto) 7.9 % Eosinophils (%) (Auto) 0.0 % Basophils (%) (Auto) 1.3 % Neutrophils # (Auto) 1.75 K/uL Lymphocytes # (Auto) 0.30 K/uL Monocytes # (Auto) 0.18 K/uL Eosinophils # (Auto) 0.00 K/uL Basophils # (Auto) 0.03 K/uL RDW Standard Deviation 46.9 fL RDW Coefficient of Variation 15.6 % Immature Granulocyte % (Auto) 0.4 % Immature Granulocyte # (Auto) 0.01 K/uL Toxic Vacuolation 2+ Dohle Bodies 1+ Echinocytes 2+ Sodium Level 132 mmol/L Potassium Level 3.2 mmol/L Chloride Level 100 mmol/L Carbon Dioxide Level 26 mmol/L Anion Gap 6.0 mmol/L Blood Urea Nitrogen 11 mg/dl Creatinine 0.68 mg/dl Est Creatinine Clear Calc Drug Dose 94.2 ml/min Estimated GFR () 106.8 Estimated GFR (Non- 92.1 BUN/Creatinine Ratio 16.3 Random Glucose 102 mg/dl Calcium Level 8.3 mg/dl Influenza Type A (RT-PCR) Neg for Influ A Influenza Type B (RT-PCR) Neg for Influ B Assessment and Plan Patient with altered mental status, fever, and leukocytosis of unknown origin. The patient is currently on IV Vancomycin and Zosyn. Culture have been negative, therefore will D/C IV abx therapy. With this patient's history of multiple pneumonias, lung CA, and current SOB, will start him on PO Levaquin to complete 7 days for concern of mild pulmonary infection, but this patient could also have a viral syndrome. He has been afebrile today. Will follow on PO Levaquin. case reviewed and agree with above assessment.
[2017-02-15] MEDS: LEVOFLOXACIN 750 MG TAB PO SCH (16:00)
[2017-02-15 16:24] VITALS: BP 147/68; PULSE 81; TEMP 36.8; O2SAT 99
[2017-02-15] MEDS: ASPIRIN 81 MG ECTAB PO SCH (19:32)
[2017-02-15] MEDS: ATORVASTATIN 40 MG TAB PO SCH (19:32)
[2017-02-15] MEDS: OXYCODONE HCL IR 5 MG TAB (IMMEDIATE RELEASE) PO PRN (19:34)
[2017-02-15 20:21] VITALS: BP 135/67; PULSE 88; TEMP 36.9; O2SAT 95
[2017-02-15 22:58] VITALS: BP 132/70; PULSE 76; TEMP 37; O2SAT 96
[2017-02-16] VITALS: O2SAT 2
[2017-02-16] MEDS: OXYCODONE HCL IR 5 MG TAB (IMMEDIATE RELEASE) PO PRN (01:44)
[2017-02-16 03:51] VITALS: BP 119/70; PULSE 80; TEMP 37; O2SAT 93
[2017-02-16 04:00] VITALS: O2SAT 2
[2017-02-16] MEDS: ACETAMINOPHEN 500 MG TAB PO SCH (06:00)
[2017-02-16 06:14] LABS: BASO % 2.1 %; BASO ABS # 0.06 K/uL (0-0.2); IG% 0.7 %; LYMPH % 22.3 %; LYMPH ABS # 0.64 K/uL (1.2-3.4); MEAN CELL VOLUME 82.5 fL (80-100); MEAN CORPUSCULAR HEMOGLOBIN 28.1 pg (25-34); MEAN PLATELET VOLUME 10.2 fL (7.4-10.4); MONO % 14.6 %; NEUT % 60.3 %; PLATELET COUNT 218 K/uL (130-400); RED BLOOD COUNT 3.03 M/uL (4.7-6.1); WHITE BLOOD COUNT 2.87 K/uL (4.8-10.8)
[2017-02-16 06:38] LABS: ACANTHOCYTES 1+; COMPLETE YES
[2017-02-16 06:50] LABS: BUN/CREATININE RATIO 15.1 (10-20); CALCIUM 8.3 mg/dl (8.5-10.1); CREATININE 0.62 mg/dl (0.60-1.40); POTASSIUM 3.6 mmol/L (3.5-5.1)
[2017-02-16 07:59] VITALS: BP 146/85; PULSE 83; TEMP 36.7; O2SAT 95
[2017-02-16] MEDS: BUDESONIDE/FORMOTEROL FUMARATE 160/4.5 60 PUFFS/INHALER INH SCH (08:24)
[2017-02-16] MEDS: BOOST PLUS VANILLA PO SCH ×2 (08:24)
[2017-02-16] MEDS: MULTIVITAMIN TAB PO SCH (08:25)
[2017-02-16] MEDS: METRONIDAZOLE 500 MG TAB PO SCH (08:25)
[2017-02-16] MEDS: METOPROLOL SUCC 25MG EXT REL TAB PO SCH (08:26)
[2017-02-16] MEDS: PANTOprazole SOD 40 MG TAB PO SCH (08:26)
[2017-02-16] MEDS: ENOXAPARIN 40 MG/0.4 ML SYR SC SCH (08:26)
[2017-02-16] MEDS: LIDODERM (LIDOCAINE) PATCH 5% TD SCH (08:30)
[2017-02-16] MEDS ORDERED: VANCOMYCIN TROUGH SCH (09:30)
--- NOTE | 2017-02-16 09:35 | Progress Note ---
Internal Med Progress Note Date of Service: February 16, 2017. Provider Documentation: SUBJECTIVE: Seen and examined at bedside. States feeling well today. Mental status seemed to be at baseline. Denies SOB, cough, wheezing, chest pain. Also denies back pain, abd pain, urinary symptoms, diarrhea, headache, blurry vision. Offers no other complaints. Family at bedside. Eager to get discharged OBJECTIVE: Vital Signs-as noted below Physical Exam: General Appearance:Moderately built and nourished, no apparent distress Head: normocephalic, Atraumatic Eyes: normal inspection, EOMI, PERRLA Neck: supple, Trachea midline Respiratory/Chest: Normal breath sounds, CTA Cardiovascular: S1, S2, No murmur Abdomen/GI:Soft, Non tender, Bowel sounds present Extremities/Musculoskelatal:normal inspection, no edema Neurologic/Psych:grossly no focal neurological deficits Skin: normal color, warm Lab data as noted below. ASSESSMENT & PLAN: Patient is 76 yr male who presented with confusion, fever, urine and stool incontinence in the setting of severe lower back pain. Patient has h/o lung cancer s/p lobectomy. 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: denies headache, neck stiffness, blurry vision, CT head : no acute issues CT head, Urine, CXR are unremarkable Blood/Urine cultures from 02/13: no growth to date Appreciate Ortho input S/P Flagyl, Vanco and Zosyn Appreciate ID input Continue PO Levaquin given history of multiple pneumonias and per recommendations from ID Await for final cultures prior to discontinuing antibiotics Has been afebrile since 2 days now Influenza PCR: negative Mental status at baseline now per family Chronic Hyponatremia: Family reports patient drinks lot of water on daily basis S/P IV fluids continue Fluid restriction Monitor sodium levels improved: 131 today Hypokalemia: Replace and monitor Resolved Chronic back pain: Fentanyl patch 25mcg held, PRN Percocet Hypertension: On Norvasc, Losartan and hydralazine at home Stable resume home meds Chronic anemia: Anemia of chronic disease No obviosu source of bleeding Monitor Hb Chronic hypoxic resp failure secondary to COPD on home O2 3L stable, no acute exacerbation continue home inhalers SSS sp PPM H/O AAA/PVD S/P surgery H/O Lung/Colon cancer: S/P surgery H/O Zenker's diverticulum: Slippery diet needed per 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 High risk for aspiration Former tobacco abuse DVT Px: Lovenox SQ Code Status: Full code Disposition: Plan to discharge home today Follow up with on at at 12:15 pm Complete the antibiotic course as prescribed Vital Signs: Date Time Temp Pulse Resp B/P Pulse Ox O2 Delivery O2 Flow Rate FiO2 02/16/17 08:00 Room Air 02/16/17 07:59 36.7 83 18 146/85 95 Room Air 02/16/17 04:00 Room Air Nasal Cannula 02/16/17 03:51 37.0 80 20 119/70 93 Room Air 02/16/17 00:00 Room Air Nasal Cannula 02/15/17 22:58 37.0 76 20 132/70 96 Nasal Cannula 2.0 02/15/17 20:21 36.9 88 18 135/67 95 Room Air 02/15/17 20:00 Room Air 02/15/17 16:24 36.8 81 18 147/68 99 Nasal Cannula 2.0 02/15/17 16:00 Nasal Cannula 2.0 02/15/17 12:00 Nasal Cannula 2.0 02/15/17 11:27 36.9 83 20 131/62 100 2.0 Lab Results: Results Past 24 Hours Test 02/15/17 09:45 02/16/17 05:20 Range/Units Influenza Type A (RT-PCR) Neg for Influ A NEG Influenza Type B (RT-PCR) Neg for Influ B NEG White Blood Count 2.87 4.8-10.8 K/uL Red Blood Count 3.03 4.7-6.1 M/uL Hemoglobin 8.5 14.0-18.0 g/dL Hematocrit 25.0 42-52 % Mean Corpuscular Volume 82.5 80-100 fL Mean Corpuscular Hemoglobin 28.1 25-34 pg Mean Corpuscular Hemoglobin Concent 34.0 32-36 g/dl Platelet Count 218 130-400 K/uL Mean Platelet Volume 10.2 7.4-10.4 fL Neutrophils (%) (Auto) 60.3 % Lymphocytes (%) (Auto) 22.3 % Monocytes (%) (Auto) 14.6 % Eosinophils (%) (Auto) 0.0 % Basophils (%) (Auto) 2.1 % Neutrophils # (Auto) 1.73 1.4-6.5 K/uL Lymphocytes # (Auto) 0.64 1.2-3.4 K/uL Monocytes # (Auto) 0.42 0.11-0.59 K/uL Eosinophils # (Auto) 0.00 0-0.5 K/uL Basophils # (Auto) 0.06 0-0.2 K/uL RDW Standard Deviation 48.6 36.4-46.3 fL RDW Coefficient of Variation 15.7 11.5-14.5 % Immature Granulocyte % (Auto) 0.7 % Immature Granulocyte # (Auto) 0.02 0.00-0.02 K/uL Acanthocytes 1+ Sodium Level 131 136-145 mmol/L Potassium Level 3.6 3.5-5.1 mmol/L Chloride Level 99 98-107 mmol/L Carbon Dioxide Level 26 21-32 mmol/L Anion Gap 6.0 3-11 mmol/L Blood Urea Nitrogen 9 7-18 mg/dl Creatinine 0.62 0.60-1.40 mg/dl Est Creatinine Clear Calc Drug Dose 106.7 ml/min Estimated GFR () 110.9 Estimated GFR (Non- 95.7 BUN/Creatinine Ratio 15.1 10-20 Random Glucose 84 70-99 mg/dl Calcium Level 8.3 8.5-10.1 mg/dl
[2017-02-16] MEDS ORDERED: LVQ750 PO (09:51)
--- NOTE | 2017-02-16 09:55 | Discharge Summary ---
Discharge Summary Date of Service February 16, 2017. Discharge Summary Admission Date: February 13, 2017 at 02:32 Discharge Date: February 16, 2017 Discharge Disposition: Home with services Principal Diagnosis: Encephalopathy: Likely metabolic secondary to Viral Syndrome Procedures: CT head: There is no hemorrhage, mass effect, or evidence of acute territorial ischemia by CT criteria. Lumbar CT: 1. No acute bony abnormality is identified in the lumbar spine. 2. A chronic compression deformity of L2 is unchanged from previous. 3. Although there is superior endplate irregularity involving the L2 vertebral body, this is unchanged from 01/04/2017 and there is no associated abnormal enhancement or paravertebral edema at this level. There is no convincing CT evidence of discitis/osteomyelitis. 4. Osteopenia and spondylotic change as above. 5. There is no evidence of enhancing epidural collection on the postcontrast images. CT ABD: 1. There are no acute infectious or inflammatory findings in the abdomen or pelvis. 2. There are postoperative changes from right hemicolectomy with ileocolic anastomosis. No bowel obstruction is seen. 3. Moderate colonic fecal retention is observed. 4. Cholelithiasis. 5. Advanced atherosclerotic change with postoperative change/bypass grafting as above. 6. Cardiomegaly and advanced emphysema. 7. A chronic compression deformity of L2 is similar to previous. 8. Additional findings as above. CTA: 1. There is no evidence of pulmonary embolus in the main, lobar, or segmental pulmonary arteries. 2. Advanced emphysema and postresection change/scarring in the left lower lobe are similar to previous. 3. There is no airspace consolidation typical for pneumonia or pleural effusion. 4. Mild cardiac enlargement and AICD. 5. A metallic foreign body is present within the gastric fundus. 6. Additional findings as above. CXR: No significant change compared to the prior study. Emphysema and postoperative changes at the left lung base are again noted. Consultations: ID, Orthopedics Pending Studies/Follow-Up: Follow up with on 02/20/at at 12:15 pm Complete the antibiotic course as prescribed Seek immediate medical attention if your symptoms reoccur or worsen Medication Reconciliation New Medications: Levofloxacin (Levofloxacin) 750 Mg Tab 750 MG PO DAILY@11 for 5 Days, #5 TAB Continued Medications: Albuterol (Ventolin Hfa) 60 Puffs/5400 Mcg Aers 2 PUFFS INH QID PRN for Wheezing Amlodipine (Norvasc) 10 Mg Tab 10 MG PO QAM, TAB Amoxicillin & Pot Clavulanate (Augmentin 875-125 mg) 1 Tab Tab 1 TAB PO BID PRN for RESCUE KIT for 10 Days Aspirin (Aspirin Chewable) 81 Mg Chew 81 MG PO QPM, TAB Atorvastatin (Lipitor) 40 Mg Tab 40 MG PO HS, TAB Baclofen (Lioresal) 10 Mg Tab 20 MG PO TID, TAB Budesonide/Formoterol Fumarate (Symbicort 160/4.5 Inhaler ) Aero 2 PUFFS INH BID, INHALER Cholecalciferol (Vitamin D) 1,000 Unit Tab 2 TAB PO QPM Cyclobenzaprine Hcl (Flexeril) 10 Mg Tab 1 TAB PO TID PRN for Muscle Spasms for 30 Days, #90 TAB Dronabinol (Marinol) 5 Mg Cap 5 MG PO BIDM, #60 Fentanyl (Fentanyl) 25 Mcg Tdsy 25 MCG TOP [id number] Hydralazine Hcl (Apresoline) 50 Mg Tab 25 MG PO TID, TAB Ipratropium-Albuterol (Combivent Respimat) 1 Aer Aer 2 PUFFS INH QID Lorazepam (Ativan) 0.5 Mg Tab 0.5 MG PO TID PRN for Anxiety, TAB Losartan Potassium (Cozaar) 100 Mg Tab 100 MG PO QPM, TAB Metoprolol Succinate (Metoprolol Succinate ER) 25 Mg Tabcr 25 MG PO DAILY Multiple Vitamins W/ Minerals (Centrum) 1 Chw Chw 1 CHW PO QPM Ondansetron Hcl (Zofran) 4 Mg Tab 4 MG PO Q6 PRN for Nausea Oxycodone/Acetaminophen 10MG/325MG (Percocet 10MG/325MG) Tab 1 TAB PO Q6 PRN for Pain Oxygen (Oxygen) Gas 3 LITERS NA CONTINOUS Pantoprazole (Protonix) 40 Mg Tab 40 MG PO DAILY, TAB Prednisone Tab (Prednisone) 10 Mg Tab 10 MG PO UD PRN for RESCUE KIT 4 TABS X 4 DAYS 3 TABS X 4 DAYS 2 TABS X 4 DAYS 1 TABS X 4 DAYS Senna/Docusate Sod (Senokot S) 1 Tab Tab 1 TAB PO QAM PRN for Constipation, TAB Zolpidem Tartrate (Ambien) 10 Mg Tab 1 TAB PO HS PRN for Insomnia for 30 Days, #30 TAB 5 Refills Admission Information HPI (per Admitting provider): CHIEF COMPLAINT: Shortness of breath/altered mental status as per family, diarrhea as per patient. HISTORY OF PRESENT ILLNESS: History obtained from the patient, family,and records. Patient is unreliable secondary to confusion. Medical history significant for chronic resp failure 2 to COPD on intermittent home O2, past tobacco abuse, AAA/PVD status post surgery, hypertension, sick sinus syndrome status post pacemaker, hx PE (off anticoagulation because of GI bleed in the past) chronic anemia (baseline hemoglobin 10), colon cancer sp surgery, lung cancer post-lobectomy. chronic pain, on narcotics. hx aspiration risk, hx Zenker's diverticulum as per records. Hx mini-strokes as per family Recent confinement is last August 2016 for HCAP. Over the last few months px co of achy back pain. Fentanyl patch started outpx at some point. Recent PCP visit December 2016. Worsening back pain. shots in the back not helping, needing more oxycodone for pain, falling. PT eval recommended. Recent course of Augmentin for bronchitis symptoms as per . Yesterday morning, the patient was noted to be disoriented by , somewhat short of breath, usual cough symptoms. Denies chest pain. Patient was noted to have loose stools. Denies abdominal pain. denies dysuria. At the Emergency Room, the patient received vanco and Zosyn for sepsis. PX wincing as ER physician pressing on belly as per . Physical Exam (per Admitting): PHYSICAL EXAMINATION: VITAL SIGNS: Blood pressure was noted to be 134/90, pulse rate 98, RR 20, temperature 38, sats 95 on room air. GENERAL: Noted to be disoriented. No respiratory distress. SKIN: Pallor. HEENT: Pale palpable conjunctivae. Dry mucosa. NECK: No JVD. supple CHEST: Clear to auscultation. HEART: Regular rate and rhythm. ABDOMEN: Some distention, minimal hypogastric tenderness. EXTREMITIES: No edema, no tenderness. NEUROLOGIC: disoriented, coherent Hospital Course Patient is 76 yr male who presented with confusion, fever, urine and stool incontinence in the setting of severe lower back pain. Patient has h/o lung cancer s/p lobectomy. 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 causes: denies headache, neck stiffness, blurry vision, CT head : no acute issues CT head, Urine, CXR are unremarkable Blood/Urine cultures from 02/13: no growth to date Appreciate Ortho input S/P Flagyl, Vanco and Zosyn Appreciate ID input Continue PO Levaquin given history of multiple pneumonias and per recommendations from ID Await for final cultures prior to discontinuing antibiotics Has been afebrile since 2 days now Influenza PCR: negative Mental status at baseline now per family Chronic Hyponatremia: Family reports patient drinks lot of water on daily basis S/P IV fluids continue Fluid restriction Monitor sodium levels improved: 131 today Hypokalemia: Replace and monitor Resolved Chronic back pain: Fentanyl patch 25mcg held, PRN Percocet Hypertension: On Norvasc, Losartan and hydralazine at home Stable resume home meds Chronic anemia: Anemia of chronic disease No obviosu source of bleeding Monitor Hb Chronic hypoxic resp failure secondary to COPD on home O2 3L stable, no acute exacerbation continue home inhalers SSS sp PPM H/O AAA/PVD S/P surgery H/O Lung/Colon cancer: S/P surgery H/O Zenker's diverticulum: Slippery diet needed per 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 Discharge Instructions Discharge Instructions Date of Service February 16, 2017. Admission Reason for Admission: Encephalopathy Discharge Discharge Diagnosis / Problem: Encephalopathy: Likely metabolic secondary to Viral Syndrome Discharge Goals Goal(s): Decrease discomfort, Improve function Activity Recommendations Activity Limitations: resume your previous activity Exercise/Sports Limitations: as tolerated . Instructions / Follow-Up Instructions / Follow-Up Follow up with on at 12:15 pm Complete the antibiotic course as prescribed Seek immediate medical attention if your symptoms reoccur or worsen Current Hospital Diet Patient's current hospital diet: AHA Diet (Heart Healthy), Low Lactose Diet Discharge Diet Recommended Diet: AHA Diet (Heart Healthy), Low Lactose Diet Pending Studies Studies pending at discharge: no Medical Emergencies . Who to Call and When: Medical Emergencies: If at any time you feel your situation is an emergency, please call 911 immediately. . Non-Emergent Contact Non-Emergency issues call your: Primary Care Provider Call Non-Emergent contact if: you have a fever, your pain is not controlled, your pain is worsening, your pain is unusual for you, you have any medication questions If your have shortness of breath or confusion. . "Provider Documentation" section prepared by Mark Nickerson. . VTE Core Measure Inpt VTE Proph given/why not?: Enoxaparin (Lovenox)SQ
[2017-02-16 10:07] VITALS: BP 146/85; PULSE 83; TEMP 36.7; O2SAT 95
[2017-02-16] MEDS: LEVOFLOXACIN 750 MG TAB PO SCH (10:16)
[2017-02-26] MEDS ORDERED: IPRA1AER2 INH (09:58)
[2017-02-26] MEDS ORDERED: BACL1TAB PO (09:58)
[2017-02-26] MEDS ORDERED: ZYP5 PO (09:58)
[2017-02-26] MEDS ORDERED: LORA-741 PO (16:09)
[2017-07-27] MEDS ORDERED: RISP-99 PO (09:56)
[2017-07-27] MEDS ORDERED: ERGO500011 PO (09:56)
[2017-07-27] MEDS ORDERED: NCY50 PO (09:56)
[2017-07-27] MEDS ORDERED: PRT40 PO (09:56)
[2017-07-27] MEDS ORDERED: FURO-85 PO (09:56)
== END 2017-02-16 10:30 | disposition home health service (06) | DRG 865 ==
LOC: ENRESERVDT → ENRESERVTM → EDBD 22:54 → C.EDB 22:55 → C.2E 02-13 02:32
PROVIDERS: ADMIT Internal Medicine; ATTEND Internal Medicine
DX: B34.9 Viral infection, unspecified (principal); G93.40 Encephalopathy, unspecified; E87.1 Hypo-osmolality and hyponatremia; J96.10 Chronic respiratory failure, unspecified whether with hypoxia or hypercapnia; R19.7 Diarrhea, unspecified; M48.06 Spinal stenosis, lumbar region; G89.29 Other chronic pain; K57.90 Diverticulosis of intestine, part unspecified, without perforation or abscess without bleeding; E87.6 Hypokalemia; I45.10 Unspecified right bundle-branch block; Z99.81 Dependence on supplemental oxygen; J43.9 Emphysema, unspecified; D64.9 Anemia, unspecified; I10 Essential (primary) hypertension; Z90.49 Acquired absence of other specified parts of digestive tract; Z87.891 Personal history of nicotine dependence; Z95.0 Presence of cardiac pacemaker; Z86.711 Personal history of pulmonary embolism; Z87.19 Personal history of other diseases of the digestive system; Z85.038 Personal history of other malignant neoplasm of large intestine; Z85.118 Personal history of other malignant neoplasm of bronchus and lung; Z80.9 Family history of malignant neoplasm, unspecified; Z82.49 Family history of ischemic heart disease and other diseases of the circulatory system; Z82.3 Family history of stroke; Z83.6 Family history of other diseases of the respiratory system; Z79.82 Long term (current) use of aspirin; Z79.899 Other long term (current) drug therapy; Z87.01 Personal history of pneumonia (recurrent); Z90.2 Acquired absence of lung [part of]

== ENCOUNTER 2017-02-17 20:35 | Inpatient (IN) | payer OTHER ==
[~2017-02-17] VITALS: Ht 182.9 cm; Wt 69.9 kg
[~2017-02-17 20:35] MED LIST changes: +AMOX875T PO; +DRON5CAP2 PO; -FERRTAB18 PO; +FNTTP25 TOP; +LVQ750 PO; +ONDA4TAB46 PO; +PRED10TA PO; +TPRSR/25 PO
--- NOTE | 2017-02-17 21:05 | EMERGENCY ROOM VISIT NOTE ---
History Report prepared by Ira: Sharad Bunn Under the Supervision of: Dr. Braeden Bryan M.D. First contact with patient: 20:50 Chief Complaint: SHORTNESS OF BREATH Stated Complaint: SOB History of Present Illness The patient is a 76 year old male who presents to the Emergency Room with complaints of worsening shortness of breath starting earlier this evening. The patient arrived to the ED via EMS and is accompanied by his and family. The patient's states that he was admitted into the hospital here at [facility] five days ago for encephalopathy and a viral infection. She reports that he was discharged yesterday and sent home with PO antibiotics. When he came home yesterday, he was feeling anxious and "wasn't acting like himself". She states that he had a loss of appetite around dinnertime and was not able to get any sleep later that night. She states that he fell a couple of times during the day but is unaware if he hit his head. The patient did become incontinent of both bladder and bowel after one of his falls. His states that earlier this evening he started experiencing a fever of 102 degrees and diaphoresis. She reports that she gave him Tylenol, but denies any relief of symptoms. She states that he is usually administered oxygen and his pulse oximeter showed normal levels while he was at home today. The patient complains of some diffuse abdominal pain. The patient's notes he has a history of previous hernia surgery. Source of History: patient, spouse/significant other () Onset: prior to arrival Position: chest, other Timing: worsening Modifying Factors (Relieving): oxygen Associated Symptoms: + abdominal pain, + diaphoresis, + fatigue, + fevers Note: Associated symptoms include: lack of sleep, loss of appetite, anxiety. Review of Systems See HPI for pertinent positives & negatives. A total of 10 systems reviewed and were otherwise negative. Past Medical & Surgical Medical Problems: (1) Aneurysm artery, femoral (2) Cerebrovascular event (3) Chronic anticoagulation (4) Chronic respiratory failure with hypoxia (5) Colon cancer (6) COPD (chronic obstructive pulmonary disease) (7) Encephalopathy (8) H/O: lung cancer (9) HLD (hyperlipidemia) (10) Hypertension (11) Pacemaker (12) Peripheral vascular disease (13) Pulmonary embolus Surgical Problems: (1) H/O hernia repair (2) History of back surgery (3) S/P AAA repair (4) S/P lobectomy of lung (5) S/P partial colectomy (6) S/P tonsillectomy Family History FHx: cancer SISTER FHx: heart disease FATHER SISTER FHx: hypertension FHx: lung disease Stroke MOTHER Social History Smoking Status: Former Smoker Alcohol Use: occasionally Drug Use: none Marital Status: Housing Status: lives with family Occupation Status: retired Current/Historical Medications Scheduled Amlodipine (Norvasc), 10 MG PO QAM Aspirin (Aspirin Chewable), 81 MG PO QPM Atorvastatin (Lipitor), 40 MG PO HS Baclofen (Lioresal), 20 MG PO TID Budesonide/Formoterol Fumarate (Symbicort 160/4.5 Inhaler ), 2 PUFFS INH BID Cholecalciferol (Vitamin D), 2 TAB PO QPM Dronabinol (Marinol), 5 MG PO BIDM Fentanyl (Fentanyl), 25 MCG TOP [id number] Hydralazine Hcl (Apresoline), 25 MG PO TID Ipratropium-Albuterol (Combivent Respimat), 2 PUFFS INH QID Levofloxacin (Levofloxacin), 750 MG PO DAILY@11 Losartan Potassium (Cozaar), 100 MG PO QPM Metoprolol Succinate (Metoprolol Succinate ER), 25 MG PO DAILY Multiple Vitamins W/ Minerals (Centrum), 1 CHW PO QPM Oxygen (Oxygen), 3 LITERS NA CONTINOUS Pantoprazole (Protonix), 40 MG PO DAILY Scheduled PRN Albuterol (Ventolin Hfa), 2 PUFFS INH QID PRN for Wheezing Amoxicillin & Pot Clavulanate (Augmentin 875-125 mg), 1 TAB PO BID PRN for RESCUE KIT Cyclobenzaprine Hcl (Flexeril), 1 TAB PO TID PRN for Muscle Spasms Lorazepam (Ativan), 0.5 MG PO TID PRN for Anxiety Ondansetron Hcl (Zofran), 4 MG PO Q6 PRN for Nausea Oxycodone/Acetaminophen 10MG/325MG (Percocet 10MG/325MG), 1 TAB PO Q6 PRN for Pain Prednisone Tab (Prednisone), 10 MG PO UD PRN for RESCUE KIT Senna/Docusate Sod (Senokot S), 1 TAB PO QAM PRN for Constipation Zolpidem Tartrate (Ambien), 1 TAB PO HS PRN for Insomnia Allergies Coded Allergies: No Known Allergies (Verified , 02/17/17) Physical Exam Vital Signs Date Time Temp Pulse Resp B/P Pulse Ox O2 Delivery O2 Flow Rate FiO2 02/18/17 00:31 109 20 117/71 97 Nasal Cannula 3.0 02/18/17 00:01 98 19 124/78 97 Nasal Cannula 3.0 02/17/17 23:31 98 19 122/66 100 Nasal Cannula 3.0 02/17/17 23:00 94 20 142/78 99 Room Air 02/17/17 22:50 97 02/17/17 22:38 110 18 144/84 97 Nasal Cannula 3.0 02/17/17 21:55 97 Nasal Cannula 3.0 02/17/17 21:00 Nasal Cannula 2.0 02/17/17 20:55 37.6 110 16 130/73 97 Nasal Cannula 2.0 02/17/17 20:51 97 Nasal Cannula 2.0 Physical Exam GENERAL: Patient is a confused, well nourished 76 year old male. He cannot answer questions. HEAD: Normocephalic atraumatic EYES: Ocular movements intact pupils equal and react to light OROPHARYNX mucous membranes are moist no exudates present no erythema or edema present NECK: Supple no nuchal rigidity CHEST: Good equal expansion LUNGS: Clear and equal to auscultation CARDIAC: Normal S1 and S2 ABDOMEN: Soft nontender no guarding BACK: No CVA tenderness EXTREMITIES: No pain upon palpation normal muscle strength in all groups no clubbing cyanosis or edema NEURO: Patient is not answering questions appropriately. Confused. Cranial Nerves 2-12 grossly intact Medical Decision & Procedures ER Provider Diagnostic Interpretation: Radiology results as stated below per my review and radiologist interpretation: CT SCAN OF THE BRAIN WITHOUT IV CONTRAST CLINICAL HISTORY: Change in mental status. COMPARISON STUDY: CT of the brain dated 02/13/2017. TECHNIQUE: Unenhanced axial CT scan of the brain is performed from the vertex to the skull base. CT DOSE: 1228.53 mGy.cm FINDINGS: Brain parenchyma: There are age-related involutional changes noting [id number] patchy subcortical and periventricular microangiopathic change. There is no hemorrhage, mass effect, or evidence of acute territorial ischemia by CT criteria. De Paz-white matter is preserved. No extra-axial fluid collection is seen. Ventricles, sulci, cisterns: Prominent secondary to involutional change. Intracranial vasculature: There is atherosclerotic calcification of the cavernous carotid and vertebral arteries. Calvarium: The skeletal structures are osteopenic. No depressed calvarial fracture is seen. Sinuses and mastoids: The visualized paranasal sinuses are clear. There is a large right mastoid effusion. The left mastoid air cells are well pneumatized. Orbits: The bony orbits are grossly intact. There are bilateral ocular lens implants. IMPRESSION: 1. There is no hemorrhage, mass effect, or evidence of acute territorial ischemia by CT criteria. No significant change from study performed 4 days previously. 2. Large right mastoid effusion. Electronically signed by: Leandro Valdez M.D. 02/17/2017 10:37 PM Dictated Date/Time: 02/17/2017 10:35 PM SINGLE VIEW CHEST CLINICAL HISTORY: Sepsis. Dyspnea. FINDINGS: An AP, portable, upright chest radiograph is compared to study dated 02/15/2017 and correlated with chest CT dated 02/13/2017. The examination is degraded by portable technique and patient rotation. A 2-lead cardiac pacemaker is unchanged in position. The heart is enlarged and there is atherosclerotic calcification of the thoracic aorta. The pulmonary vascular structures noncongested. Advanced emphysema and chronic interstitial thickening are similar to previous. There are postoperative changes and volume loss in the left lung consistent with previous surgical resection. Scarring at the left lung base is similar to previous. No airspace consolidation is seen typical for pneumonia and there is no large pleural effusion. No pneumothorax is seen. The skeletal structures are osteopenic. The bony thorax is grossly intact. IMPRESSION: 1. Cardiomegaly and cardiac pacemaker. There is no radiographic evidence of congestive failure. 2. Advanced emphysema and postoperative change from left-sided pulmonary resection. 3. There is no airspace consolidation typical for pneumonia or pleural effusion, and there has been no significant change from recent prior studies. Electronically signed by: Leandro Valdez M.D. 02/17/2017 9:27 PM Dictated Date/Time: 02/17/2017 9:[address] SCAN OF THE ABDOMEN AND PELVIS WITH IV CONTRAST CLINICAL HISTORY: Generalized abdominal pain. COMPARISON STUDY: Abdominal CT dated 02/13/2017 and 01/04/2017. TECHNIQUE: Following the IV administration of 114 cc of Optiray 320, CT scan of the abdomen and pelvis is performed from the lung bases to the proximal femora. Images are reviewed in the axial, sagittal, and coronal planes. IV contrast was administered without complication. Automated dose control exposure was utilized. The examination is degraded by streak artifact from the arms which could not be elevated above the abdomen or pelvis. CT DOSE: 623.70 mGy.cm FINDINGS: Lung bases: The heart is mildly enlarged and without pericardial effusion. Pacemaker leads are noted. The coronary arteries are densely calcified. There is a tiny hiatal hernia. Advanced emphysema is present at the lung bases. Postoperative change and scarring in the left lower lobe with elevation of left hemidiaphragm is again noted Liver: The contrast-enhanced liver is normal in size, contour, and attenuation. There is no intrahepatic biliary ductal dilatation. The hepatic veins and portal veins are patent. Gallbladder: There are numerous small calcified gallstones. There is no clear CT evidence of acute cholecystitis. Spleen: Normal in size and heterogeneous in attenuation. Pancreas: The pancreas is moderately atrophic and and grossly unremarkable. Adrenal glands: A 1.9 cm left adrenal nodule is unchanged. The right adrenal gland is unremarkable. Kidneys: The contrast-enhanced kidneys are atrophic and without hydronephrosis. The kidneys enhance symmetrically. A 2 cm cyst arises exophytically from the lower pole of the left kidney. Additional scattered subcentimeter cortical hypodensities also likely represent cysts but are too small for definitive characterization. Abdominal vasculature: There is advanced atherosclerotic calcification of the abdominal aorta. No aneurysm is seen. There are postoperative changes from aortobiiliac bypass grafting. A stent is noted in the [place] right external iliac artery. There are stents present at the common femoral arteries at the anastomoses. Bowel: There are postoperative changes consistent with right hemicolectomy and ileocolic anastomosis. No bowel obstruction is seen. Liquid stool is noted in the remaining colon. There is no associated colonic wall thickening or inflammation. The appendix is surgically absent. Peritoneum: There is no intraperitoneal free air or abdominal ascites. Lymphadenopathy: None. Pelvic viscera: The bladder, prostate, and seminal vesicles are grossly normal as visualized. Postoperative change is present in the groin bilaterally. Skeletal structures: The skeletal structures are osteopenic. Again seen is a moderate chronic compression deformity of L2. Moderate lumbar lumbosacral spondylosis is observed. No lytic or blastic lesions are seen. A bone graft donor site is noted in the right ilium. IMPRESSION: 1. Liquid stool is noted in the remaining colon. Correlate clinically for evidence of a diarrheal illness. There is no associated colonic wall thickening or pericolonic inflammation. 2. There are postoperative changes from right hemicolectomy and ileocolic anastomosis. No bowel obstruction is seen. 3. Cholelithiasis. 4. Advanced atherosclerotic disease with postoperative change/bypass grafting as above. 5. Cardiomegaly and advanced emphysema. 6. A chronic compression deformity of L2 is similar to previous. 7. Additional findings as above. Electronically signed by: Leandro Valdez M.D. 02/17/2017 10:46 PM Dictated Date/Time: 02/17/2017 10:38 PM Laboratory Results 02/17/17 18:15 Red Blood Count 3.43, Mean Corpuscular Volume 82.2, Mean Corpuscular Hemoglobin 25.9, Mean Corpuscular Hemoglobin Concent 31.6, Mean Platelet Volume 10.1, Neutrophils (%) (Auto) 65.5, Lymphocytes (%) (Auto) 23.1, Monocytes (%) (Auto) 10.2, Eosinophils (%) (Auto) 0.3, Basophils (%) (Auto) 0.6, Neutrophils # (Auto ) 2.24, Lymphocytes # (Auto) 0.79, Monocytes # (Auto) 0.35, Eosinophils # (Auto ) 0.01, Basophils # (Auto) 0.02 02/17/17 18:15 Test 02/17/17 18:15 02/17/17 21:56 02/17/17 22:00 02/17/17 23:38 White Blood Count 3.42 K/uL (4.8-10.8) Red Blood Count 3.43 M/uL (4.7-6.1) Hemoglobin 8.9 g/dL (14.0-18.0) Hematocrit 28.2 % (42-52) Mean Corpuscular Volume 82.2 fL (80-100) Mean Corpuscular Hemoglobin 25.9 pg (25-34) Mean Corpuscular Hemoglobin Concent 31.6 g/dl (32-36) Platelet Count 256 K/uL (130-400) Mean Platelet Volume 10.1 fL (7.4-10.4) Neutrophils (%) (Auto) 65.5 % Lymphocytes (%) (Auto) 23.1 % Monocytes (%) (Auto) 10.2 % Eosinophils (%) (Auto) 0.3 % Basophils (%) (Auto) 0.6 % Neutrophils # (Auto) 2.24 K/uL (1.4-6.5) Lymphocytes # (Auto) 0.79 K/uL (1.2-3.4) Monocytes # (Auto) 0.35 K/uL (0.11-0.59) Eosinophils # (Auto) 0.01 K/uL (0-0.5) Basophils # (Auto) 0.02 K/uL (0-0.2) RDW Standard Deviation 48.2 fL (36.4-46.3) RDW Coefficient of Variation 16.0 % (11.5-14.5) Immature Granulocyte % (Auto) 0.3 % Immature Granulocyte # (Auto) 0.01 K/uL (0.00-0.02) Dohle Bodies 2+ Acanthocytes 1+ Anion Gap 9.0 mmol/L (3-11) Est Creatinine Clear Calc Drug Dose 103.6 ml/min Estimated GFR () 109.5 Estimated GFR (Non- 94.4 BUN/Creatinine Ratio 14.9 (10-20) Calcium Level 8.2 mg/dl (8.5-10.1) Total Bilirubin 0.4 mg/dl (0.2-1) Aspartate Amino Transf (AST/SGOT) 92 U/L (15-37) Alanine Aminotransferase (ALT/SGPT) 64 U/L (12-78) Alkaline Phosphatase 110 U/L (45-117) Total Creatine Kinase 27 U/L (39-308) Creatine Kinase MB 0.8 ng/ml (0.5-3.6) Creatine Kinase MB Ratio 3.0 (0-3.0) Troponin I < 0.015 ng/ml (0-0.045) Total Protein 5.7 gm/dl (6.4-8.2) Albumin 2.5 gm/dl (3.4-5.0) Globulin 3.2 gm/dl (2.5-4.0) Albumin/Globulin Ratio 0.8 (0.9-2) Prothrombin Time 11.1 SECONDS (9.0-12.0) Prothromb Time International Ratio 1.0 (0.9-1.1) Activated Partial Thromboplast Time 31.3 SECONDS (21.0-31.0) Partial Thromboplastin Ratio 1.2 Ammonia 33.0 umol/L (11-32) Bedside Lactic Acid Venous 1.19 mmol/L (0.90-1.70) Urine Color YELLOW Urine Appearance CLEAR (CLEAR) Urine pH 6.0 (4.5-7.5) Urine Specific [place] 1.043 (1.000-1.030) Urine Protein NEG (NEG) Urine Glucose (UA) NEG (NEG) Urine Ketones NEG (NEG) Urine Occult Blood NEG (NEG) Urine Nitrite NEG (NEG) Urine Bilirubin NEG (NEG) Urine Urobilinogen NEG (NEG) Urine Leukocyte Esterase NEG (NEG) Urine WBC (Auto) 1-5 /hpf (0-5) Urine RBC (Auto) 0-4 /hpf (0-4) Urine Hyaline Casts (Auto) 1-5 /lpf (0-5) Urine Epithelial Cells (Auto) 5-10 /lpf (0-5) Urine Bacteria (Auto) NEG (NEG) Labs reviewed by ED physician. ECG Indication: SOB/dyspnea Rate (beats per minute): 104 Rhythm: sinus tachycardia Findings: RBBB, no acute ischemic change, no ectopy ED Course 2052: Past medical records reviewed. The patient was evaluated in room A02. A complete history and physical examination was performed. 2303: I discussed the patients case with Dr. Perez, Orthopaedic Hospitalist. The patient will be further evaluated. Medical Decision Blood Pressure Screening: Patient was found to have an elevated blood pressure and was referred to their primary care doctor for recheck and further treatment Medication Reconciliation: I attest that I have personally reviewed the patient' s current medication list Etiologies such as viral syndrome, otitis, pharyngitis, pneumonia, influenza, meningitis, urinary tract infection, sepsis, bacteremia, as well as others were entertained. This is a 76-year-old male who presents emergency department complaining of acute altered mental status change along with a fever. The patient appears get acutely confused and he is febrile here in the emergency department. The patient was reason sent home from the hospital. He was sent for CAT scan of the head along the abdomen and pelvis. This did not show any acute process. I did discuss the case with the hospitalist service who agreed to admit the patient. Patient was in agreement with the treatment plan. Consults Time Called: [id number] Consulting Physician: Roel Perez Hospitalist Returned Call: [phone] I discussed the patients case with Roel Perez. The patient will be further evaluated. Impression Primary Impression: Metabolic encephalopathy Additional Impression: Fever Scribe Attestation The scribe's documentation has been prepared under my direction and personally reviewed by me in its entirety. I confirm that the note above accurately reflects all work, treatment, procedures, and medical decision making performed by me. Departure Information Dispostion Being Evaluated By Hospitalist Referrals Addison Rodrigez, D.O. (PCP) Patient Instructions My [facility] Problem Qualifiers Additional Impression: Fever Fever type: unspecified Qualified Codes: R50.9 - Fever, unspecified
[2017-02-17 21:11] LABS: BASO % 0.6 %; BASO ABS # 0.02 K/uL (0-0.2); EOS % 0.3 %; HEMATOCRIT 28.2 % (42-52); IG% 0.3 %; LYMPH % 23.1 %; LYMPH ABS # 0.79 K/uL (1.2-3.4); MEAN CELL VOLUME 82.2 fL (80-100); MEAN CORPUSCULAR HEMOGLOBIN 25.9 pg (25-34); MEAN CORPUSCULAR HGB CONC 31.6 g/dl (32-36); MEAN PLATELET VOLUME 10.1 fL (7.4-10.4); MONO % 10.2 %; NEUT % 65.5 %; PLATELET COUNT 256 K/uL (130-400); RED BLOOD COUNT 3.43 M/uL (4.7-6.1); WHITE BLOOD COUNT 3.42 K/uL (4.8-10.8)
[2017-02-17] MEDS ORDERED: OPTIRAY 320 IV PRN (21:15)
[2017-02-17 21:21] LABS: ALT/SGPT 64 U/L (12-78); AST/SGOT 92 U/L (15-37); BLOOD UREA NITROGEN 10 mg/dl (7-18); BUN/CREATININE RATIO 14.9 (10-20); CALCIUM 8.2 mg/dl (8.5-10.1); CARBON DIOXIDE 25 mmol/L (21-32); CHLORIDE 96 mmol/L (98-107); CREATININE 0.64 mg/dl (0.60-1.40); GLUCOSE 74 mg/dl (70-99); POTASSIUM 3.8 mmol/L (3.5-5.1); SODIUM 130 mmol/L (136-145)
[2017-02-17 21:26] LABS: ALB/GLOB RATIO 0.8 (0.9-2); ALKALINE PHOSPHATASE 110 U/L (45-117)
--- NOTE | 2017-02-17 21:29 | DIAGNOSTIC IMAGING REPORT ---
SINGLE VIEW CHEST CLINICAL HISTORY: Sepsis. Dyspnea. FINDINGS: An AP, portable, upright chest radiograph is compared to study dated 02/15/2017 and correlated with chest CT dated 02/13/2017. The examination is degraded by portable technique and patient rotation. A 2-lead cardiac pacemaker is unchanged in position. The heart is enlarged and there is atherosclerotic calcification of the thoracic aorta. The pulmonary vascular structures noncongested. Advanced emphysema and chronic interstitial thickening are similar to previous. There are postoperative changes and volume loss in the left lung consistent with previous surgical resection. Scarring at the left lung base is similar to previous. No airspace consolidation is seen typical for pneumonia and there is no large pleural effusion. No pneumothorax is seen. The skeletal structures are osteopenic. The bony thorax is grossly intact. IMPRESSION: 1. Cardiomegaly and cardiac pacemaker. There is no radiographic evidence of congestive failure. 2. Advanced emphysema and postoperative change from left-sided pulmonary resection. 3. There is no airspace consolidation typical for pneumonia or pleural effusion, and there has been no significant change from recent prior studies. Electronically signed by: Leandro Valdez M.D. 02/17/2017 9:27 PM Dictated Date/Time: 02/17/2017 9:25 PM
[2017-02-17 21:40] LABS: ACANTHOCYTES 1+; COMPLETE YES; DOHLE BODIES 2+
[2017-02-17 22:15] LABS: PARTIAL THROMBOPLASTIN RATIO 1.2; PROTHROMBIN TIME (PATIENT) 11.1 SECONDS (9.0-12.0)
--- NOTE | 2017-02-17 22:39 | DIAGNOSTIC IMAGING REPORT ---
CT SCAN OF THE BRAIN WITHOUT IV CONTRAST CLINICAL HISTORY: Change in mental status. COMPARISON STUDY: CT of the brain dated 02/13/2017. TECHNIQUE: Unenhanced axial CT scan of the brain is performed from the vertex to the skull base. CT DOSE: 1228.53 mGy.cm FINDINGS: Brain parenchyma: There are age-related involutional changes noting [id number] patchy subcortical and periventricular microangiopathic change. There is no hemorrhage, mass effect, or evidence of acute territorial ischemia by CT criteria. De Paz-white matter is preserved. No extra-axial fluid collection is seen. Ventricles, sulci, cisterns: Prominent secondary to involutional change. Intracranial vasculature: There is atherosclerotic calcification of the cavernous carotid and vertebral arteries. Calvarium: The skeletal structures are osteopenic. No depressed calvarial fracture is seen. Sinuses and mastoids: The visualized paranasal sinuses are clear. There is a large right mastoid effusion. The left mastoid air cells are well pneumatized. Orbits: The bony orbits are grossly intact. There are bilateral ocular lens implants. IMPRESSION: 1. There is no hemorrhage, mass effect, or evidence of acute territorial ischemia by CT criteria. No significant change from study performed 4 days previously. 2. Large right mastoid effusion. Electronically signed by: Leandro Valdez M.D. 02/17/2017 10:37 PM Dictated Date/Time: 02/17/2017 10:35 PM
--- NOTE | 2017-02-17 22:47 | DIAGNOSTIC IMAGING REPORT ---
CT SCAN OF THE ABDOMEN AND PELVIS WITH IV CONTRAST CLINICAL HISTORY: Generalized abdominal pain. COMPARISON STUDY: Abdominal CT dated 02/13/2017 and 01/04/2017. TECHNIQUE: Following the IV administration of 114 cc of Optiray 320, CT scan of the abdomen and pelvis is performed from the lung bases to the proximal femora. Images are reviewed in the axial, sagittal, and coronal planes. IV contrast was administered without complication. Automated dose control exposure was utilized. The examination is degraded by streak artifact from the arms which could not be elevated above the abdomen or pelvis. CT DOSE: 623.70 mGy.cm FINDINGS: Lung bases: The heart is mildly enlarged and without pericardial effusion. Pacemaker leads are noted. The coronary arteries are densely calcified. There is a tiny hiatal hernia. Advanced emphysema is present at the lung bases. Postoperative change and scarring in the left lower lobe with elevation of left hemidiaphragm is again noted Liver: The contrast-enhanced liver is normal in size, contour, and attenuation. There is no intrahepatic biliary ductal dilatation. The hepatic veins and portal veins are patent. Gallbladder: There are numerous small calcified gallstones. There is no clear CT evidence of acute cholecystitis. Spleen: Normal in size and heterogeneous in attenuation. Pancreas: The pancreas is moderately atrophic and and grossly unremarkable. Adrenal glands: A 1.9 cm left adrenal nodule is unchanged. The right adrenal gland is unremarkable. Kidneys: The contrast-enhanced kidneys are atrophic and without hydronephrosis. The kidneys enhance symmetrically. A 2 cm cyst arises exophytically from the lower pole of the left kidney. Additional scattered subcentimeter cortical hypodensities also likely represent cysts but are too small for definitive characterization. Abdominal vasculature: There is advanced atherosclerotic calcification of the abdominal aorta. No aneurysm is seen. There are postoperative changes from aortobiiliac bypass grafting. A stent is noted in the [place] right external iliac artery. There are stents present at the common femoral arteries at the anastomoses. Bowel: There are postoperative changes consistent with right hemicolectomy and ileocolic anastomosis. No bowel obstruction is seen. Liquid stool is noted in the remaining colon. There is no associated colonic wall thickening or inflammation. The appendix is surgically absent. Peritoneum: There is no intraperitoneal free air or abdominal ascites. Lymphadenopathy: None. Pelvic viscera: The bladder, prostate, and seminal vesicles are grossly normal as visualized. Postoperative change is present in the groin bilaterally. Skeletal structures: The skeletal structures are osteopenic. Again seen is a moderate chronic compression deformity of L2. Moderate lumbar lumbosacral spondylosis is observed. No lytic or blastic lesions are seen. A bone graft donor site is noted in the right ilium. IMPRESSION: 1. Liquid stool is noted in the remaining colon. Correlate clinically for evidence of a diarrheal illness. There is no associated colonic wall thickening or pericolonic inflammation. 2. There are postoperative changes from right hemicolectomy and ileocolic anastomosis. No bowel obstruction is seen. 3. Cholelithiasis. 4. Advanced atherosclerotic disease with postoperative change/bypass grafting as above. 5. Cardiomegaly and advanced emphysema. 6. A chronic compression deformity of L2 is similar to previous. 7. Additional findings as above. Electronically signed by: Leandro Valdez M.D. 02/17/2017 10:46 PM Dictated Date/Time: 02/17/2017 10:38 PM
[2017-02-17 23:59] LABS: URINE APPEARANCE CLEAR (CLEAR); URINE BILIRUBIN NEG (NEG); URINE COLOR YELLOW; URINE NITRITE NEG (NEG); URINE SPECIFIC GRAVITY 1.043 (1.000-1.030); UROBILINOGEN NEG (NEG); ZZUR CULT IF INDIC CLEAN CATCH NO
[2017-02-18 00:26] LABS: MANUAL MICROSCOPIC REQUIRED? NO; REVIEW REQ? NO
[2017-02-18] MEDS ORDERED: OXYCODONE/ACETAMINOPHEN 10/325MG TAB PO PRN (01:00)
--- NOTE | 2017-02-18 01:14 | History and Physical ---
History & Physical Date & Time of Service: February 18, 2017 at 00:59 Chief Complaint: SOB Primary Care Physician: Addison Rodrigez D.O. History of Present Illness Source: patient, family, hospital records 76 year old male with history of COPD, Chronic respiratory failure, Sick Sinus Syndrome s/p Pacemaker placement, PE off coumadin, other problems noted below presenting with recurrence of fever with altered mental status. Patient was just discharge from [facility] last 02/16/17 for fever and altered mental status. No clear etiology was determined, patient improved and was discharged on Levaquin PO. Per family, patient was doing fine Sunday afternoon but was unable to sleep that night. Earlier today, patient was noted to have fever of 102, and was progressively getting confused again. He was also noted to have diarrhea and was reporting RUQ pain to family. No headache, nausea/vomiting, cough, chest pain, dyspnea. No other symptoms. At the ER, patient remained afebrile, WBC 3k. CT head showed right mastoid effusion, CXR no pneumonia, CT abd/pelvis possible diarrheal illness. On exam, patient's family members at the bedside, patient was alert, oriented to person and place, occasionally goes off tangent, seems restless but not in distress. States he feels tired otherwise no other active symptoms. Past Medical/Surgical History Medical Problems: (1) Aneurysm artery, femoral Permanent Comment: PTFE graft repair of anastomotic pseudoaneurysm with end-to- end graft to profunda femoral artery bypass/Dr. De Paz Status: Chronic (2) Cerebrovascular event Status: Chronic (3) Chronic anticoagulation Status: Chronic (4) Chronic respiratory failure with hypoxia Status: Chronic (5) Colon cancer Permanent Comment: S/P Resection Status: Resolved (6) COPD (chronic obstructive pulmonary disease) Status: Chronic (7) H/O: lung cancer Status: Resolved (8) HLD (hyperlipidemia) Status: Chronic (9) Hypertension Status: Chronic (10) Pacemaker Status: Chronic (11) Peripheral vascular disease Status: Chronic (12) Pulmonary embolus Status: Resolved Surgical Problems: (1) H/O hernia repair Status: Chronic (2) History of back surgery Status: Chronic (3) S/P AAA repair Status: Chronic (4) S/P lobectomy of lung Status: Chronic (5) S/P partial colectomy Permanent Comment: with anastomosis Status: Chronic Family History FHx: cancer SISTER FHx: heart disease FATHER SISTER FHx: hypertension FHx: lung disease Stroke MOTHER Social History Smoking Status: Former Smoker Drug Use: none Marital Status: Housing status: lives with family Occupational Status: retired Immunizations History of Influenza Vaccine: Yes Influenza Vaccine Date: Jul 24, 2013 History of Tetanus Vaccine?: Yes History of Pneumococcal: No Pneumococcal Date: Nov 20, 2013 History of Hepatitis B Vaccine: No Multi-Drug Resistant Organisms History of MDRO: No Allergies Coded Allergies: No Known Allergies (Verified , 02/17/17) Home Medications Scheduled Amlodipine (Norvasc), 10 MG PO QAM Aspirin (Aspirin Chewable), 81 MG PO QPM Atorvastatin (Lipitor), 40 MG PO HS Baclofen (Lioresal), 20 MG PO TID Budesonide/Formoterol Fumarate (Symbicort 160/4.5 Inhaler ), 2 PUFFS INH BID Cholecalciferol (Vitamin D), 2 TAB PO QPM Dronabinol (Marinol), 5 MG PO BIDM Fentanyl (Fentanyl), 25 MCG TOP [id number] Hydralazine Hcl (Apresoline), 25 MG PO TID Ipratropium-Albuterol (Combivent Respimat), 2 PUFFS INH QID Levofloxacin (Levofloxacin), 750 MG PO DAILY@11 Losartan Potassium (Cozaar), 100 MG PO QPM Metoprolol Succinate (Metoprolol Succinate ER), 25 MG PO DAILY Multiple Vitamins W/ Minerals (Centrum), 1 CHW PO QPM Oxygen (Oxygen), 3 LITERS NA CONTINOUS Pantoprazole (Protonix), 40 MG PO DAILY Scheduled PRN Albuterol (Ventolin Hfa), 2 PUFFS INH QID PRN for Wheezing Amoxicillin & Pot Clavulanate (Augmentin 875-125 mg), 1 TAB PO BID PRN for RESCUE KIT Cyclobenzaprine Hcl (Flexeril), 1 TAB PO TID PRN for Muscle Spasms Lorazepam (Ativan), 0.5 MG PO TID PRN for Anxiety Ondansetron Hcl (Zofran), 4 MG PO Q6 PRN for Nausea Oxycodone/Acetaminophen 10MG/325MG (Percocet 10MG/325MG), 1 TAB PO Q6 PRN for Pain Prednisone Tab (Prednisone), 10 MG PO UD PRN for RESCUE KIT Senna/Docusate Sod (Senokot S), 1 TAB PO QAM PRN for Constipation Zolpidem Tartrate (Ambien), 1 TAB PO HS PRN for Insomnia Review of Systems Constitutional- (+) as noted above Eyes- no acute visual changes ENT- no sinus drainage; no pharyngitis Pulmonary- no cough, no wheezing, no shortness of breath Cardiac- no chest pain, no palpitations, no orthopnea, no dependent edema GI- (+) as noted above - no dysuria, no hematuria Musculoskeletal- no arthralgias, no myalgias Derm- no rashes, no new skin lesions, no changing skin lesions Hematologic- no unusual bruising, no unusual bleeding Lymphatics- no adenopathy Endocrine- no polyuria or polydipsia; no heat or cold intolerance Neuro- no headaches, no focal neurologic symptoms Psych- no anxiety, no depression Physical Exam Vital Signs Date Time Temp Pulse Resp B/P Pulse Ox O2 Delivery O2 Flow Rate FiO2 02/18/17 00:31 109 20 117/71 97 Nasal Cannula 3.0 02/18/17 00:01 98 19 124/78 97 Nasal Cannula 3.0 02/17/17 23:31 98 19 122/66 100 Nasal Cannula 3.0 02/17/17 23:00 94 20 142/78 99 Room Air 02/17/17 22:50 97 02/17/17 22:38 110 18 144/84 97 Nasal Cannula 3.0 02/17/17 21:55 97 Nasal Cannula 3.0 02/17/17 21:00 Nasal Cannula 2.0 02/17/17 20:55 37.6 110 16 130/73 97 Nasal Cannula 2.0 02/17/17 20:51 97 Nasal Cannula 2.0 General Appearance: no apparent distress, + pertinent finding (speaks in sentences, no effort, no accessory muscle use) Head: normocephalic, atraumatic Eyes: normal inspection, PERRL, EOMI, sclerae normal ENT: normal ENT inspection, hearing grossly normal, pharynx normal Neck: supple, no adenopathy, thyroid normal, no JVD, trachea midline Respiratory/Chest: chest non-tender, lungs clear, normal breath sounds, no respiratory distress, no accessory muscle use Cardiovascular: regular rate, rhythm, no edema, no JVD, no murmur, normal peripheral pulses Abdomen/GI: normal bowel sounds, non tender, soft, no organomegaly Back: normal inspection, no CVA tenderness Extremities/Musculoskelatal: normal inspection, no calf tenderness, no pedal edema, normal range of motion 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, no motor/sensory deficits, alert, normal reflexes, + pertinent finding (oriented x 2) Skin: normal color, warm/dry, no rash Lymphatic: no adenopathy Diagnostics Laboratory Results Results Past 24 Hours Test 02/17/17 18:15 02/17/17 21:56 02/17/17 22:00 02/17/17 23:38 Range/Units White Blood Count 3.42 4.8-10.8 K/uL Red Blood Count 3.43 4.7-6.1 M/uL Hemoglobin 8.9 14.0-18.0 g/dL Hematocrit 28.2 42-52 % Mean Corpuscular Volume 82.2 80-100 fL Mean Corpuscular Hemoglobin 25.9 25-34 pg Mean Corpuscular Hemoglobin Concent 31.6 32-36 g/dl Platelet Count 256 130-400 K/uL Mean Platelet Volume 10.1 7.4-10.4 fL Neutrophils (%) (Auto) 65.5 % Lymphocytes (%) (Auto) 23.1 % Monocytes (%) (Auto) 10.2 % Eosinophils (%) (Auto) 0.3 % Basophils (%) (Auto) 0.6 % Neutrophils # (Auto) 2.24 1.4-6.5 K/uL Lymphocytes # (Auto) 0.79 1.2-3.4 K/uL Monocytes # (Auto) 0.35 0.11-0.59 K/uL Eosinophils # (Auto) 0.01 0-0.5 K/uL Basophils # (Auto) 0.02 0-0.2 K/uL RDW Standard Deviation 48.2 36.4-46.3 fL RDW Coefficient of Variation 16.0 11.5-14.5 % Immature Granulocyte % (Auto) 0.3 % Immature Granulocyte # (Auto) 0.01 0.00-0.02 K/uL Dohle Bodies 2+ Acanthocytes 1+ Sodium Level 130 136-145 mmol/L Potassium Level 3.8 3.5-5.1 mmol/L Chloride Level 96 98-107 mmol/L Carbon Dioxide Level 25 21-32 mmol/L Anion Gap 9.0 3-11 mmol/L Blood Urea Nitrogen 10 7-18 mg/dl Creatinine 0.64 0.60-1.40 mg/dl Est Creatinine Clear Calc Drug Dose 103.6 ml/min Estimated GFR () 109.5 Estimated GFR (Non- 94.4 BUN/Creatinine Ratio 14.9 10-20 Random Glucose 74 70-99 mg/dl Calcium Level 8.2 8.5-10.1 mg/dl Total Bilirubin 0.4 0.2-1 mg/dl Aspartate Amino Transf (AST/SGOT) 92 15-37 U/L Alanine Aminotransferase (ALT/SGPT) 64 12-78 U/L Alkaline Phosphatase 110 45-117 U/L Total Creatine Kinase 27 39-308 U/L Creatine Kinase MB 0.8 0.5-3.6 ng/ml Creatine Kinase MB Ratio 3.0 0-3.0 Troponin I < 0.015 0-0.045 ng/ml Total Protein 5.7 6.4-8.2 gm/dl Albumin 2.5 3.4-5.0 gm/dl Globulin 3.2 2.5-4.0 gm/dl Albumin/Globulin Ratio 0.8 0.9-2 Prothrombin Time 11.1 9.0-12.0 SECONDS Prothromb Time International Ratio 1.0 0.9-1.1 Activated Partial Thromboplast Time 31.3 21.0-31.0 SECONDS Partial Thromboplastin Ratio 1.2 Ammonia 33.0 11-32 umol/L Bedside Lactic Acid Venous 1.19 0.90-1.70 mmol/L Urine Color YELLOW Urine Appearance CLEAR CLEAR Urine pH 6.0 4.5-7.5 Urine Specific [place] 1.043 1.000-1.030 Urine Protein NEG NEG Urine Glucose (UA) NEG NEG Urine Ketones NEG NEG Urine Occult Blood NEG NEG Urine Nitrite NEG NEG Urine Bilirubin NEG NEG Urine Urobilinogen NEG NEG Urine Leukocyte Esterase NEG NEG Urine WBC (Auto) 1-5 0-5 /hpf Urine RBC (Auto) 0-4 0-4 /hpf Urine Hyaline Casts (Auto) 1-5 0-5 /lpf Urine Epithelial Cells (Auto) 5-10 0-5 /lpf Urine Bacteria (Auto) NEG NEG Microbiology Results 02/17/17 Blood Culture, Received Pending 02/17/17 Blood Culture, Received Pending Diagnostic Radiology per H&P EKG HR 104, sinus rhythm, no signs of acute ischemia or infarct Impression Assessment and Plan 76 year old male with history of COPD, Chronic respiratory failure, Sick Sinus Syndrome s/p Pacemaker placement, PE off coumadin, other problems noted below presenting with recurrence of fever with altered mental status. POSSIBLE SEPSIS UNCLEAR ETIOLOGY - repeat blood, urine, stool cultures check C diff - cover with Zosyn + Doxy IV avoid fluoroquinolones due to ongoing altered mental status - will consult ID ALTERED MENTAL STATUS - appears to be encephalopathic - no neck rigidity - from underlying infection? - hold percocet, baclofen, ativan, marinol continue fentanyl patch - will consult Neurology COPD not in exacerbation continue inhalers, 3 L o2 HYPERTENSION continue usual medications ANEMIA stable since last check monitor DVT prophylaxis SCDs fall risk Code status Full Code Disposition pending lives with family VTE Prophylaxis VTE Risk Assessment Done? Y/N: Yes Risk Level: Moderate Given or contraindicated: SCD's
[2017-02-18 03:00] VITALS: BP 122/70; PULSE 101; TEMP 36.7; O2SAT 99; Ht 182.9 cm; Wt 69.9 kg
[2017-02-18] MEDS ORDERED: PIPERACILL/TAZOBAC IV 3.375 GM in DEXTROSE 5% 100ML IV ONE (03:45)
[2017-02-18] MEDS ORDERED: PIPERACILL/TAZOBAC CONSULT ACTIVE PRN (04:06)
[2017-02-18] MEDS: DOXYCYCLINE HYCLATE 100 MG in DEXTROSE 5% 100ML IV SCH ×2 (04:30→16:24)
[2017-02-18] MEDS: SODIUM CHLORIDE 0.9% 1000ML 1,000 ML IV SCH ×3 (04:31→21:00)
[2017-02-18] MEDS ORDERED: FENTANYL PATCH REMOVE & WASTE SCH (07:59)
[2017-02-18] MEDS ORDERED: FENTANYL 25 MCG/HR TDSY TD SCH (08:00)
[2017-02-18 08:33] LABS: LYME DISEASE AB IGG NEG (NEG); LYME DISEASE AB IGM NEG (NEG)
--- NOTE | 2017-02-18 08:48 | Progress Note ---
Internal Med Progress Note Date of Service: February 18, 2017. Provider Documentation: SUBJECTIVE: Seen and examined at bedside. States having generalized weakness. Poor appetite. Denies chest pain, SOB, abd pain, diarrhea. Offers no complaints. Has been afebrile since hospitalization. Family at bedside. OBJECTIVE: Vital Signs-as noted below Physical Exam: General Appearance:Moderately built and nourished, no apparent distress Head: normocephalic, Atraumatic Eyes: normal inspection, EOMI, PERRL Neck: supple, Trachea midline Respiratory/Chest: Normal breath sounds, CTA Cardiovascular: S1, S2, No murmur Abdomen/GI:Soft, Non tender, Bowel sounds present Extremities/Musculoskelatal:normal inspection, no edema Neurologic/Psych:AAOX3, grossly no focal neurological deficits Skin: normal color, warm Lab data as noted below. ASSESSMENT & PLAN: Patient is a 76 yr old male with PMH of COPD, Chronic respiratory failure, Sick Sinus Syndrome s/p Pacemaker placement, PE off coumadin, other problems noted below presenting with recurrence of fever with altered mental status. POSSIBLE SEPSIS UNCLEAR SOURCE OF INFECTION Empirically continue with Zosyn and Doxy Follow up cultures, stool studies Lyme's titers:negative ID consulted IV fluids ALTERED MENTAL STATUS ? 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 High risk for aspiration Former tobacco abuse DVT prophylaxis SCDs fall risk Code status Full Code Disposition: Plan to transfer to medical floor Vital Signs: Date Time Temp Pulse Resp B/P Pulse Ox O2 Delivery O2 Flow Rate FiO2 02/18/17 03:00 36.7 101 16 122/70 99 Nasal Cannula 2.0 02/18/17 02:31 106 22 118/69 94 Nasal Cannula 3.0 02/18/17 02:01 100 18 117/76 92 Nasal Cannula 3.0 02/18/17 01:31 98 20 124/71 97 Nasal Cannula 3.0 02/18/17 01:00 37.8 102 19 128/62 92 Nasal Cannula 3.0 02/18/17 00:31 109 20 117/71 97 Nasal Cannula 3.0 02/18/17 00:01 98 19 124/78 97 Nasal Cannula 3.0 02/17/17 23:31 98 19 122/66 100 Nasal Cannula 3.0 02/17/17 23:00 94 20 142/78 99 Room Air 02/17/17 22:50 97 02/17/17 22:38 110 18 144/84 97 Nasal Cannula 3.0 02/17/17 21:55 97 Nasal Cannula 3.0 02/17/17 21:00 Nasal Cannula 2.0 02/17/17 20:55 37.6 110 16 130/73 97 Nasal Cannula 2.0 02/17/17 20:51 97 Nasal Cannula 2.0 Lab Results: Results Past 24 Hours Test 02/17/17 18:15 02/17/17 21:56 02/17/17 22:00 02/17/17 23:38 Range/Units White Blood Count 3.42 4.8-10.8 K/uL Red Blood Count 3.43 4.7-6.1 M/uL Hemoglobin 8.9 14.0-18.0 g/dL Hematocrit 28.2 42-52 % Mean Corpuscular Volume 82.2 80-100 fL Mean Corpuscular Hemoglobin 25.9 25-34 pg Mean Corpuscular Hemoglobin Concent 31.6 32-36 g/dl Platelet Count 256 130-400 K/uL Mean Platelet Volume 10.1 7.4-10.4 fL Neutrophils (%) (Auto) 65.5 % Lymphocytes (%) (Auto) 23.1 % Monocytes (%) (Auto) 10.2 % Eosinophils (%) (Auto) 0.3 % Basophils (%) (Auto) 0.6 % Neutrophils # (Auto) 2.24 1.4-6.5 K/uL Lymphocytes # (Auto) 0.79 1.2-3.4 K/uL Monocytes # (Auto) 0.35 0.11-0.59 K/uL Eosinophils # (Auto) 0.01 0-0.5 K/uL Basophils # (Auto) 0.02 0-0.2 K/uL RDW Standard Deviation 48.2 36.4-46.3 fL RDW Coefficient of Variation 16.0 11.5-14.5 % Immature Granulocyte % (Auto) 0.3 % Immature Granulocyte # (Auto) 0.01 0.00-0.02 K/uL Dohle Bodies 2+ Acanthocytes 1+ Sodium Level 130 136-145 mmol/L Potassium Level 3.8 3.5-5.1 mmol/L Chloride Level 96 98-107 mmol/L Carbon Dioxide Level 25 21-32 mmol/L Anion Gap 9.0 3-11 mmol/L Blood Urea Nitrogen 10 7-18 mg/dl Creatinine 0.64 0.60-1.40 mg/dl Est Creatinine Clear Calc Drug Dose 103.6 ml/min Estimated GFR () 109.5 Estimated GFR (Non- 94.4 BUN/Creatinine Ratio 14.9 10-20 Random Glucose 74 70-99 mg/dl Calcium Level 8.2 8.5-10.1 mg/dl Total Bilirubin 0.4 0.2-1 mg/dl Aspartate Amino Transf (AST/SGOT) 92 15-37 U/L Alanine Aminotransferase (ALT/SGPT) 64 12-78 U/L Alkaline Phosphatase 110 45-117 U/L Total Creatine Kinase 27 39-308 U/L Creatine Kinase MB 0.8 0.5-3.6 ng/ml Creatine Kinase MB Ratio 3.0 0-3.0 Troponin I < 0.015 0-0.045 ng/ml Total Protein 5.7 6.4-8.2 gm/dl Albumin 2.5 3.4-5.0 gm/dl Globulin 3.2 2.5-4.0 gm/dl Albumin/Globulin Ratio 0.8 0.9-2 Prothrombin Time 11.1 9.0-12.0 SECONDS Prothromb Time International Ratio 1.0 0.9-1.1 Activated Partial Thromboplast Time 31.3 21.0-31.0 SECONDS Partial Thromboplastin Ratio 1.2 Ammonia 33.0 11-32 umol/L Bedside Lactic Acid Venous 1.19 0.90-1.70 mmol/L Urine Color YELLOW Urine Appearance CLEAR CLEAR Urine pH 6.0 4.5-7.5 Urine Specific [place] 1.043 1.000-1.030 Urine Protein NEG NEG Urine Glucose (UA) NEG NEG Urine Ketones NEG NEG Urine Occult Blood NEG NEG Urine Nitrite NEG NEG Urine Bilirubin NEG NEG Urine Urobilinogen NEG NEG Urine Leukocyte Esterase NEG NEG Urine WBC (Auto) 1-5 0-5 /hpf Urine RBC (Auto) 0-4 0-4 /hpf Urine Hyaline Casts (Auto) 1-5 0-5 /lpf Urine Epithelial Cells (Auto) 5-10 0-5 /lpf Urine Bacteria (Auto) NEG NEG Test 02/18/17 07:22 Range/Units Lactic Acid Level 0.8 0.4-2.0 mmol/L Lyme Disease IgG Antibody NEG NEG Lyme Disease IgM Antibody NEG NEG Microbiology Results 02/17/17 Blood Culture, Received Pending 02/17/17 Blood Culture, Received Pending 02/18/17 Urine Culture, Received Pending
[2017-02-18] MEDS: IPRATROPIUM BROMIDE/ALBUTEROL respimat INH INH SCH ×4 (08:51→20:09)
[2017-02-18] MEDS: PANTOprazole SOD 40 MG TAB PO SCH (08:52)
[2017-02-18] MEDS: BUDESONIDE/FORMOTEROL FUMARATE 160/4.5 60 PUFFS/INHALER INH SCH ×2 (08:52→20:08)
[2017-02-18] MEDS: METOPROLOL SUCC 25MG EXT REL TAB PO SCH (08:53)
[2017-02-18] MEDS: AMLODIPINE BESYLATE 5 MG TAB PO SCH (08:54)
[2017-02-18] MEDS: PIPERACILL/TAZOBAC IV 3.375 GM in DEXTROSE 5% 100ML IV SCH ×2 (10:00→18:46)
[2017-02-18 11:05] VITALS: BP 98/58; PULSE 86; TEMP 36.7; O2SAT 92
--- NOTE | 2017-02-18 13:22 | CONSULTATION REPORT ---
DATE OF CONSULTATION: 02/18/2017 REQUESTING PHYSICIAN: Dr. Nickerson. HISTORY OF PRESENT ILLNESS: Ryley is 76-year-old, he is a patient of Dr. Addison Rodrigez. He had been in this hospital for about 10 days and was just discharged on Sunday. He presented with fever of unknown origin and was evaluated by quite a number of specialists and was discharged on antibiotics all as per the history and physical. He upon his return home, began to develop some diarrhea and then got more confused, which is something he had while he was in the hospital last time and was brought back and has now been readmitted and neurology has been consulted. He was on Levaquin orally at the time of discharge, but then developed a fever and more confusion without any other focal signs, headaches, nausea, vomiting, etc. In the ER, he was found to have no fever. A CAT scan showed a right mastoid effusion. Chest x-ray, no pneumonia. CT abdomen and pelvis, possible diarrheal illness, but otherwise no masses and he is now been put on the floor and many of his medications have been held. PAST MEDICAL HISTORY: Does show femoral artery aneurysm post repair. He has had some chronic cerebrovascular issues with leukoencephalopathy, he is on chronic anticoagulation. He has got chronic respiratory failure with some hypoxemia. He has had colon cancer, COPD. He has had a history of lung cancer, which apparently has resolved. He has a history of hyperlipidemia, hypertension. He has a pacemaker on board. He has peripheral vascular disease. He has had a pulmonary embolism. PAST SURGICAL HISTORY: Surgically he has had a herniorrhaphy, the aneurysm repair, back surgery with persistent problems and the abdominal aortic aneurysm repair and has had a lobectomy of the lung and a partial colectomy. FAMILY HISTORY: Positive for cancer in a sister, heart disease in father and sister, hypertension, lung disease and stroke in his mother. SOCIAL HISTORY: Reveals him to be a former smoker. He does not consume ethanol. He is and lives with his family. Has several children. IMMUNIZATIONS: Up-to-date. He has no history of drug resistant organisms. ALLERGIES: He has no coded allergies. MEDICATIONS AT HOME: Include amlodipine, aspirin, atorvastatin, baclofen, Symbicort, Marinol, fentanyl patch, hydralazine, Combivent, Levaquin, losartan, metoprolol, multivitamins, oxygen, and pantoprazole. As needed medications include albuterol, amoxicillin, Flexeril, lorazepam, Zofran, oxycodone, prednisone, senna and Zolpidem. REVIEW OF SYSTEMS: Reveals recent febrile illness which he was hospitalized and now the diarrhea, recurrent fever and confusion which precipitated this admission. He is according to his daughter had confusional episodes while hospitalized last time attributed to a toxic delirium. Otherwise, there have been no new issues referable to head, eyes, ears, nose and throat, cardiovascular, pulmonary, gastrointestinal, genitourinary systems and in terms of musculoskeletal and neurologic reviews. He does have the chronic back pain and the periodic hospital based confusional episodes related to his illness. PHYSICAL EXAMINATION: VITAL SIGNS: On examination last night his blood pressure was 117/71, pulse was 109, respirations were 20. He was afebrile on arrival here, although the family said he had a temperature to 102. He was thin, white male who was mildly confused. HEENT: Examination was unremarkable. LUNGS: Clear. HEART: Had a regular rhythm. There was no abdominal tenderness or masses. EXTREMITIES: Free of edema. NEUROLOGIC: Today, according to the family members, is improved but is not at his baseline. He is alert. He can name the hospital. He knows he was here, is a little vague about how many days he was in. He knew today was Sunday and he knew tomorrow was going to be . He knows the year. Eye movements are normal. Facial motility and strength is normal. Facial sensation is normal. Speech is clear. There is no real tremor, tics or choreiform activity. There is no myoclonus, no cerebellar dysmetria on appropriate task. Reflexes are generally hypoactive. Toes are downgoing. No Krista's signs are seen. Muscular strength testing is normal, at least to gross bedside testing and sensory examination reveals little loss of vibratory sense compatible with age. ASSESSMENT AND PLAN: I continue to feel this is a delirium likely related to some transient fever and not helped by the multiple medications this man is on. Some of this may reflect the Levaquin which can induce an encephalopathy in susceptible individuals along with a host of other neurologic issues such as paresthesias and even seizures. He is off his Marinol. He is off his baclofen, although I would be cautious about abrubt withdrawal of this agent as itcan precipitate some depression and he is off a lot of his analgesia. I think his C. diff is pending. He is going to be maintained on some empiric antibiotics and infectious disease I believe will be re-involved in his case. For now, I do not recommend any further neurological evaluation other an EEG to be sure that he is not having episodic nonconvulsive seizure activity, but frankly I doubt this and I am encouraged by his improvement. Unfortunately, tonight, he may begin to demonstrate more "sundowning activity" and I warned his daughter about this. I will see how things go and I will check on him tomorrow. FAY
[2017-02-18 14:15] VITALS: BP 115/68; PULSE 110
[2017-02-18] MEDS ORDERED: CHECK FENTANYL PATCH PLACEMENT SCH (16:00)
[2017-02-18] MEDS: BOOST VANILLA PO SCH ×2 (16:04)
[2017-02-18 16:41] VITALS: BP 132/89; PULSE 63; TEMP 36.7; O2SAT 95
[2017-02-18] MEDS: ATORVASTATIN 40 MG TAB PO SCH (20:11)
[2017-02-18] MEDS: LOSARTAN POTASSIUM 50 MG TAB PO SCH (20:11)
[2017-02-18] MEDS: CHOLECALCIFEROL 1000 INTER.UNIT TAB PO SCH (20:11)
[2017-02-18] MEDS: ASPIRIN 81 MG ECTAB PO SCH (20:12)
[2017-02-18 23:05] VITALS: BP 132/89; PULSE 63; TEMP 36.7; O2SAT 95
[2017-02-18 23:06] VITALS: BP 96/56; PULSE 93; TEMP 38.6; O2SAT 91
[2017-02-18] MEDS: ACETAMINOPHEN 325 MG TAB PO PRN (23:42)
[2017-02-19] VITALS (7 sets, daily range): BP systolic 96–127; BP diastolic 54–67; PULSE 80–92; TEMP 36.9–37.6; O2SAT 88–94
[2017-02-19] MEDS: PIPERACILL/TAZOBAC IV 3.375 GM in DEXTROSE 5% 100ML IV SCH ×3 (01:48→18:29)
[2017-02-19] MEDS: DOXYCYCLINE HYCLATE 100 MG in DEXTROSE 5% 100ML IV SCH ×2 (05:53→15:47)
[2017-02-19 07:06] LABS: BASO % 0.6 %; BASO ABS # 0.03 K/uL (0-0.2); EOS % 0.2 %; HEMATOCRIT 23.4 % (42-52); IG% 0.2 %; LYMPH % 22.7 %; LYMPH ABS # 1.17 K/uL (1.2-3.4); MEAN CELL VOLUME 82.1 fL (80-100); MEAN CORPUSCULAR HEMOGLOBIN 28.4 pg (25-34); MEAN CORPUSCULAR HGB CONC 34.6 g/dl (32-36); MEAN PLATELET VOLUME 9.8 fL (7.4-10.4); MONO % 12.8 %; NEUT % 63.5 %; PLATELET COUNT 208 K/uL (130-400); RED BLOOD COUNT 2.85 M/uL (4.7-6.1); WHITE BLOOD COUNT 5.15 K/uL (4.8-10.8)
[2017-02-19] MEDS: SODIUM CHLORIDE 0.9% 1000ML 1,000 ML IV SCH ×2 (07:18→16:57)
[2017-02-19 07:36] LABS: BUN/CREATININE RATIO 10.3 (10-20); CALCIUM 7.6 mg/dl (8.5-10.1); CREATININE 0.69 mg/dl (0.60-1.40); POTASSIUM 3.6 mmol/L (3.5-5.1)
[2017-02-19 07:47] LABS: COMPLETE YES; DOHLE BODIES 1+
[2017-02-19] MEDS: BUDESONIDE/FORMOTEROL FUMARATE 160/4.5 60 PUFFS/INHALER INH SCH ×2 (07:53→20:02)
[2017-02-19] MEDS: IPRATROPIUM BROMIDE/ALBUTEROL respimat INH INH SCH ×4 (07:53→20:02)
[2017-02-19] MEDS: AMLODIPINE BESYLATE 5 MG TAB PO SCH (07:54)
[2017-02-19] MEDS: PANTOprazole SOD 40 MG TAB PO SCH (07:54)
[2017-02-19] MEDS: METOPROLOL SUCC 25MG EXT REL TAB PO SCH (07:55)
[2017-02-19] MEDS: BOOST VANILLA PO SCH ×6 (08:40→15:50)
--- NOTE | 2017-02-19 10:38 | Progress Note ---
Internal Med Progress Note Date of Service: February 19, 2017. Provider Documentation: SUBJECTIVE: Seen and examined at bedside. Had low grade fever overnight. Currently afebrile. Has generalized weakness. Denies chest pain, SOB, cough, abd pain, diarrhea. Offers no complaints. Family at bedside. OBJECTIVE: Vital Signs-as noted below Physical Exam: General Appearance:Moderately built and nourished, no apparent distress Head: normocephalic, Atraumatic Eyes: normal inspection, EOMI, PERRL Neck: supple, Trachea midline Respiratory/Chest: Normal breath sounds, CTA Cardiovascular: S1, S2, No murmur Abdomen/GI:Soft, Non tender, Bowel sounds present Extremities/Musculoskelatal:normal inspection, no edema Neurologic/Psych:AAOX3, grossly no focal neurological deficits Skin: normal color, warm Lab data as noted below. ASSESSMENT & PLAN: Patient is a 76 yr old male with PMH of COPD, Chronic respiratory failure, Sick Sinus Syndrome s/p Pacemaker placement, PE off coumadin, other problems noted below presenting with recurrence of fever with altered mental status. POSSIBLE SEPSIS UNCLEAR SOURCE OF INFECTION Empirically on Zosyn and Doxy Blood and Urine cultures: No growth to date Lyme's titers:negative ID consulted: await for input Continue IV fluids Check CT chest ALTERED MENTAL STATUS ? Encephalopathic/Delirium Currently AAO X3 Hold Percocet Resume baclofen (Reduced to 10mg TID from 20 TID), Marinol Resume Ativan PRN Hold fentanyl for now Appreciate Neurology input COPD CHRONIC HYPOXIC RESPIRATORY FAILURE No signs of exacerbation continue home inhalers, On 3 L oxygen HYPERTENSION continue home medications Stable CHRONIC ANEMIA Anemia of chronic disease No obvious source of bleeding Monitor Hb CHRONIC HYPONATREMIA: stable Monitor sodium levels SSS sp PPM H/O AAA/PVD S/P surgery H/O Lung/Colon cancer: S/P surgery H/O Zenker's diverticulum: Slippery diet needed per prior MANAGER DISH evaluation High risk for aspiration Former tobacco abuse DVT prophylaxis SCDs fall risk Code status Full Code Disposition: Continue to monitor Vital Signs: Date Time Temp Pulse Resp B/P Pulse Ox O2 Delivery O2 Flow Rate FiO2 02/19/17 08:00 Nasal Cannula 2.0 02/19/17 06:54 36.9 89 20 112/67 91 Room Air 02/19/17 00:27 37.6 02/19/17 00:00 Nasal Cannula 2.0 02/18/17 23:06 38.6 93 16 96/56 91 Nasal Cannula 2.0 02/18/17 23:05 36.7 63 18 132/89 95 Room Air 2.0 02/18/17 16:41 36.7 63 18 132/89 95 Room Air 02/18/17 16:00 Room Air 02/18/17 14:15 110 115/68 02/18/17 12:00 Room Air 02/18/17 11:05 36.7 86 16 98/58 92 Room Air Lab Results: Results Past 24 Hours Test 02/19/17 06:30 Range/Units White Blood Count 5.15 4.8-10.8 K/uL Red Blood Count 2.85 4.7-6.1 M/uL Hemoglobin 8.1 14.0-18.0 g/dL Hematocrit 23.4 42-52 % Mean Corpuscular Volume 82.1 80-100 fL Mean Corpuscular Hemoglobin 28.4 25-34 pg Mean Corpuscular Hemoglobin Concent 34.6 32-36 g/dl Platelet Count 208 130-400 K/uL Mean Platelet Volume 9.8 7.4-10.4 fL Neutrophils (%) (Auto) 63.5 % Lymphocytes (%) (Auto) 22.7 % Monocytes (%) (Auto) 12.8 % Eosinophils (%) (Auto) 0.2 % Basophils (%) (Auto) 0.6 % Neutrophils # (Auto) 3.27 1.4-6.5 K/uL Lymphocytes # (Auto) 1.17 1.2-3.4 K/uL Monocytes # (Auto) 0.66 0.11-0.59 K/uL Eosinophils # (Auto) 0.01 0-0.5 K/uL Basophils # (Auto) 0.03 0-0.2 K/uL RDW Standard Deviation 48.4 36.4-46.3 fL RDW Coefficient of Variation 16.0 11.5-14.5 % Immature Granulocyte % (Auto) 0.2 % Immature Granulocyte # (Auto) 0.01 0.00-0.02 K/uL Dohle Bodies 1+ Sodium Level 130 136-145 mmol/L Potassium Level 3.6 3.5-5.1 mmol/L Chloride Level 97 98-107 mmol/L Carbon Dioxide Level 25 21-32 mmol/L Anion Gap 8.0 3-11 mmol/L Blood Urea Nitrogen 7 7-18 mg/dl Creatinine 0.69 0.60-1.40 mg/dl Est Creatinine Clear Calc Drug Dose 96.1 ml/min Estimated GFR () 106.1 Estimated GFR (Non- 91.6 BUN/Creatinine Ratio 10.3 10-20 Random Glucose 86 70-99 mg/dl Calcium Level 7.6 8.5-10.1 mg/dl
[2017-02-19] MEDS ORDERED: ZOLPIDEM TARTRATE 10 MG TAB PO PRN (11:00)
[2017-02-19] MEDS ORDERED: OPTIRAY 320 IV PRN (11:00)
--- NOTE | 2017-02-19 11:30 | DIAGNOSTIC IMAGING REPORT ---
CHEST CT WITH CONTRAST CT DOSE: 259.84 mGy.cm HISTORY: Recurrent Fever. Unclear source TECHNIQUE: Multiaxial CT images of the chest were performed following the intravenous administration of contrast. COMPARISON: Chest CTA 02/13/2017. FINDINGS: Emphysema. Prior left lower lobectomy. Linear densities within the left lung base and left lung apex remain unchanged and likely represent scarring. No new focal lung consolidations. The remaining airways are patent. Left-sided pacemaker. No fractures within the visualized osseous structures. No mediastinal or hilar lymphadenopathy. The heart remains borderline enlarged. Trace left pleural effusion. Heterogeneous appearance to the spleen. This could be due to the timing of contrast. The central pulmonary arteries are patent. No mediastinal or hilar lymphadenopathy. Stable left adrenal gland nodule. Stable small metallic density within the stomach. IMPRESSION: 1. Prior left lower lobectomy. 2. Emphysema. 3. No new focal lung consolidations to suggest pneumonia. 4. Trace left pleural effusion. 5. Heterogeneous perfusion of the spleen. This is nonspecific but could be related to the timing of contrast. Electronically signed by: Jerrell Collins M.D. 02/19/2017 11:29 AM Dictated Date/Time: 02/19/2017 11:23 AM
--- NOTE | 2017-02-19 11:38 | PROGRESS NOTE ---
DATE: 02/19/2017 Ryley had a fever last night, and was encephalopathic, needed one-on-one nursing to control his impulsivity, but now the fever is broken. He is back to his baseline and he seems to me to be actually a little better than he was even yesterday morning. He is awake, alert, oriented, knows today is and recalls seeing me yesterday. Speech is clear. There is no nuchal rigidity. Cranial nerve examination are normal. There is no tremor, tics, or choreiform activity. Reflexes are hypoactive, but present. Strength is good and sensation is intact. At this point, I continue to feel this is a fever related delirium likely aided by the substrate of an elderly brain with quite a bit of leukoencephalopathy. I am simply going to continue to follow him. An EEG shows some mild generalized slowing, but no epileptogenic activity. I did discuss this with Dr. Nickerson. Infectious disease is going to reassess him tomorrow after the holidays and he is going to go down for CAT scan of the chest to be sure we do not have any localized infectious process such as an abscess cavity. FAY
[2017-02-19] MEDS: BACLOFEN 10 MG TAB PO SCH ×2 (13:14→20:06)
[2017-02-19] MEDS ORDERED: BACLOFEN 10 MG TAB PO SCH (14:00)
--- NOTE | 2017-02-19 14:57 | Medical Consult ---
Consultation Date of Consultation: February 19, 2017. Attending Physician: Mark Nickerson MD Reason for Consultation: Fever History of Present Illness 76-year-old male well known to the Infectious Disease service, with history of hypertension, hyperlipidemia, pulmonary embolus, status post permanent pacemaker , who was recently admitted for fever associated with encephalopathy. He underwent extensive workup without source being found, and was eventually discharged on oral levofloxacin. Patient now readmitted with 1 day history of recurrent fever to 102 associated with encephalopathy. He has been started empirically on broad-spectrum antibiotics with Doxycycline and Zosyn. Thus far blood cultures have been negative again, no leukocytosis. Has undergone CT scan of the chest and abdomen, with no source of fever being found. CT scan of the chest shows large effusion in the right mastoid, otherwise no acute findings. Mental status has improved somewhat since admission. Patient is without significant travel or exposure history. No ill contacts. Past Medical/Surgical History Medical Problems: (1) Cardiac ischemia Status: Acute (2) Confusion Status: Acute (3) Fever Status: Acute (4) Lactic acidosis Status: Acute (5) Metabolic encephalopathy Status: Acute (6) Pneumonia Status: Acute (7) Pneumonia Status: Acute (8) Sepsis Status: Acute (9) Sepsis Status: Acute (10) Sepsis Status: Acute (11) Sinus tachycardia Status: Acute (12) SOB (shortness of breath) Status: Acute (13) Upper GI bleeding Status: Acute Medical Problems: (1) Aneurysm artery, femoral (2) Cerebrovascular event (3) Chronic anticoagulation (4) Chronic respiratory failure with hypoxia (5) Colon cancer (6) COPD (chronic obstructive pulmonary disease) (7) Encephalopathy (8) H/O: lung cancer (9) HLD (hyperlipidemia) (10) Hypertension (11) Pacemaker (12) Peripheral vascular disease (13) Pulmonary embolus Surgical Problems: (1) H/O hernia repair (2) History of back surgery (3) S/P AAA repair (4) S/P lobectomy of lung (5) S/P partial colectomy (6) S/P tonsillectomy Family History FHx: cancer SISTER FHx: heart disease FATHER SISTER FHx: hypertension FHx: lung disease Stroke MOTHER Social History Smoking Status: Former Smoker Drug Use: none Marital Status: Housing Status: lives with family Occupation Status: retired Allergies Coded Allergies: No Known Allergies (Verified , 02/17/17) Current Inpatient Medications Current Inpatient Medications Medications (Trade) Dose Ordered Sig/Andrae Route Start Time Stop Time Status Last Admin Dose Admin Ioversol (Optiray 320) 100 ml UD PRN IV 02/17/17 21:15 02/21/17 21:14 Piperacillin Sod/ Tazobactam Sod 1 ea 1 ea UD PRN N/A 02/18/17 04:06 03/20/17 04:05 Sodium Chloride (Nss 1000ml) 1,000 ml @ 100 mls/hr Q10H IV 02/18/17 01:00 03/20/17 00:59 02/19/17 07:18 100 MLS/HR Amlodipine Besylate (Norvasc Tab) 10 mg QAM PO 02/18/17 09:00 03/20/17 08:59 02/19/17 07:54 10 MG Aspirin (Ecotrin Tab) 81 mg QPM PO 02/18/17 21:00 03/20/17 20:59 02/18/17 20:12 81 MG Atorvastatin Calcium (Lipitor Tab) 40 mg HS PO 02/18/17 21:00 03/20/17 20:59 02/18/17 20:11 40 MG Budesonide/ Formoterol Fumarate (Symbicort 160/ 4.5 Inh) 2 puffs BID INH 02/18/17 09:00 03/20/17 08:59 02/19/17 07:53 2 PUFFS Cholecalciferol (Vitamin D Tab) 1,000 inter.unit QPM PO 02/18/17 21:00 03/20/17 20:59 02/18/17 20:11 1,000 INTER.UNIT Hydralazine HCl (Apresoline Tab) 25 mg TID PO 02/18/17 09:00 03/20/17 08:59 02/19/17 07:54 25 MG Albuterol/ Ipratropium (Combivent Respimat Inh) 2 puffs QID INH 02/18/17 09:00 03/20/17 08:59 02/19/17 13:14 2 PUFFS Losartan Potassium (coZAAR TAB) 100 mg QPM PO 02/18/17 21:00 03/20/17 20:59 02/18/17 20:11 100 MG Metoprolol Succinate (Toprol Xl Tab) 25 mg DAILY PO 02/18/17 09:00 03/20/17 08:59 02/19/17 07:55 25 MG Pantoprazole Sodium (Protonix Tab) 40 mg DAILY PO 02/18/17 09:00 03/20/17 08:59 02/19/17 07:54 40 MG Acetaminophen 650 mg 650 mg Q4H PRN PO 02/18/17 01:00 03/20/17 00:59 02/18/17 23:42 650 MG Piperacillin Sod/ Tazobactam Sod 3.375 gm/Dextrose 115 ml @ 28.75 mls/ hr Q8H IV 02/18/17 10:00 02/20/17 09:59 02/19/17 10:22 28.75 MLS/HR Doxycycline Hyclate/Dextrose (Vibramycin IV/ D5 100ml) 110 ml @ 55 mls/hr Q12H IV 02/18/17 06:00 02/20/17 05:59 02/19/17 05:53 55 MLS/HR Miscellaneous Information 1 ea UD PRN N/A 02/18/17 04:15 03/20/17 04:14 Enteral Nutritional Formula (Boost) 1 can 3XDQ4 PO 02/18/17 16:00 03/20/17 15:59 02/19/17 13:14 1 CAN Ioversol (Optiray 320) 125 ml UD PRN IV 02/19/17 11:00 02/23/17 10:59 Lorazepam (Ativan Tab) 0.5 mg TID PRN PO 02/19/17 11:00 03/21/17 10:59 Zolpidem Tartrate (Ambien Tab) 10 mg HS PRN PO 02/19/17 11:00 03/21/17 10:59 Dronabinol (Marinol Cap) 5 mg BIDM PO 02/19/17 17:00 03/21/17 16:59 Baclofen (Lioresal Tab) 10 mg TID PO 02/19/17 14:00 03/21/17 13:59 02/19/17 13:14 10 MG Review of Systems All systems were reviewed and are negative except as per HPI Physical Exam Date Time Temp Pulse Resp B/P Pulse Ox O2 Delivery O2 Flow Rate FiO2 02/19/17 13:11 91 96/57 02/19/17 08:00 Nasal Cannula 2.0 02/19/17 06:54 36.9 89 20 112/67 91 Room Air 02/19/17 00:27 37.6 02/19/17 00:00 Nasal Cannula 2.0 02/18/17 23:06 38.6 93 16 96/56 91 Nasal Cannula 2.0 02/18/17 23:05 36.7 63 18 132/89 95 Room Air 2.0 02/18/17 16:41 36.7 63 18 132/89 95 Room Air 02/18/17 16:00 Room Air General Appearance: WD/WN, no apparent distress Head: normocephalic, atraumatic Eyes: normal inspection, EOMI, sclerae normal ENT: normal ENT inspection, hearing grossly normal, pharynx normal Neck: supple, no adenopathy, trachea midline Respiratory/Chest: lungs clear, normal breath sounds, no respiratory distress Cardiovascular: regular rate, rhythm, no gallop, no murmur Abdomen/GI: normal bowel sounds, non tender, soft, no organomegaly Back: normal inspection, no CVA tenderness Extremities/Musculoskelatal: no calf tenderness, non-tender Neurologic/Psych: alert, oriented x 3 Skin: normal color, warm/dry, no rash Lymphatic: no adenopathy Laboratory Results RUN DATE: 02/19/17 [facility] LAB PAGE 1 RUN TIME: 706 Specimen Inquiry PATIENT: LYNETTE CHAHAL LOC: [id number] U # : [id number] AGE/SX: 76/M ROOM: [facility] REG : 02/18/[address]: Mark Nickerson MD : 1940 BED: 2 DIS : STATUS: ADM IN TLOC: SPEC #: [id number] GEOVANNA: 02/17/17 STATUS: RES REQ #: [id number] RECD: 02/17/17 [facility] DR: Braeden Bryan MD SOURCE: BLOOD ENTR: 02/17/[address] [facility] [address]: Addison Rodrigez D.ORosi [facility]: ORDERED: BLOOD CULTURE Procedure Result Verified Site BLD CULT Preliminary 02/19/17 NO GROWTH TO DATE. Last Hours Test 02/19/17 06:30 02/19/17 14:24 02/19/17 14:26 White Blood Count 5.15 K/uL Red Blood Count 2.85 M/uL Hemoglobin 8.1 g/dL Hematocrit 23.4 % Mean Corpuscular Volume 82.1 fL Mean Corpuscular Hemoglobin 28.4 pg Mean Corpuscular Hemoglobin Concent 34.6 g/dl Platelet Count 208 K/uL Mean Platelet Volume 9.8 fL Neutrophils (%) (Auto) 63.5 % Lymphocytes (%) (Auto) 22.7 % Monocytes (%) (Auto) 12.8 % Eosinophils (%) (Auto) 0.2 % Basophils (%) (Auto) 0.6 % Neutrophils # (Auto) 3.27 K/uL Lymphocytes # (Auto) 1.17 K/uL Monocytes # (Auto) 0.66 K/uL Eosinophils # (Auto) 0.01 K/uL Basophils # (Auto) 0.03 K/uL RDW Standard Deviation 48.4 fL RDW Coefficient of Variation 16.0 % Immature Granulocyte % (Auto) 0.2 % Immature Granulocyte # (Auto) 0.01 K/uL Dohle Bodies 1+ Sodium Level 130 mmol/L Potassium Level 3.6 mmol/L Chloride Level 97 mmol/L Carbon Dioxide Level 25 mmol/L Anion Gap 8.0 mmol/L Blood Urea Nitrogen 7 mg/dl Creatinine 0.69 mg/dl Est Creatinine Clear Calc Drug Dose 96.1 ml/min Estimated GFR () 106.1 Estimated GFR (Non- 91.6 BUN/Creatinine Ratio 10.3 Random Glucose 86 mg/dl Calcium Level 7.6 mg/dl Erythrocyte Sedimentation Rate 14 mm/hr CHEST CT WITH CONTRAST CT DOSE: 259.84 mGy.cm HISTORY: Recurrent Fever. Unclear source TECHNIQUE: Multiaxial CT images of the chest were performed following the intravenous administration of contrast. COMPARISON: Chest CTA 02/13/2017. FINDINGS: Emphysema. Prior left lower lobectomy. Linear densities within the left lung base and left lung apex remain unchanged and likely represent scarring. No new focal lung consolidations. The remaining airways are patent. Left-sided pacemaker. No fractures within the visualized osseous structures. No mediastinal or hilar lymphadenopathy. The heart remains borderline enlarged. Trace left pleural effusion. Heterogeneous appearance to the spleen. This could be due to the timing of contrast. The central pulmonary arteries are patent. No mediastinal or hilar lymphadenopathy. Stable left adrenal gland nodule. Stable small metallic density within the stomach. IMPRESSION: 1. Prior left lower lobectomy. 2. Emphysema. 3. No new focal lung consolidations to suggest pneumonia. 4. Trace left pleural effusion. 5. Heterogeneous perfusion of the spleen. This is nonspecific but could be related to the timing of contrast. Electronically signed by: Jerrell Collins M.D. 02/19/2017 11:[address] SCAN OF THE ABDOMEN AND PELVIS WITH IV CONTRAST CLINICAL HISTORY: Generalized abdominal pain. COMPARISON STUDY: Abdominal CT dated 02/13/2017 and 01/04/2017. TECHNIQUE: Following the IV administration of 114 cc of Optiray 320, CT scan of the abdomen and pelvis is performed from the lung bases to the proximal femora. Images are reviewed in the axial, sagittal, and coronal planes. IV contrast was administered without complication. Automated dose control exposure was utilized. The examination is degraded by streak artifact from the arms which could not be elevated above the abdomen or pelvis. CT DOSE: 623.70 mGy.cm FINDINGS: Lung bases: The heart is mildly enlarged and without pericardial effusion. Pacemaker leads are noted. The coronary arteries are densely calcified. There is a tiny hiatal hernia. Advanced emphysema is present at the lung bases. Postoperative change and scarring in the left lower lobe with elevation of left hemidiaphragm is again noted Liver: The contrast-enhanced liver is normal in size, contour, and attenuation. There is no intrahepatic biliary ductal dilatation. The hepatic veins and portal veins are patent. Gallbladder: There are numerous small calcified gallstones. There is no clear CT evidence of acute cholecystitis. Spleen: Normal in size and heterogeneous in attenuation. Pancreas: The pancreas is moderately atrophic and and grossly unremarkable. Adrenal glands: A 1.9 cm left adrenal nodule is unchanged. The right adrenal gland is unremarkable. Kidneys: The contrast-enhanced kidneys are atrophic and without hydronephrosis. The kidneys enhance symmetrically. A 2 cm cyst arises exophytically from the lower pole of the left kidney. Additional scattered subcentimeter cortical hypodensities also likely represent cysts but are too small for definitive characterization. Abdominal vasculature: There is advanced atherosclerotic calcification of the abdominal aorta. No aneurysm is seen. There are postoperative changes from aortobiiliac bypass grafting. A stent is noted in the [place] right external iliac artery. There are stents present at the common femoral arteries at the anastomoses. Bowel: There are postoperative changes consistent with right hemicolectomy and ileocolic anastomosis. No bowel obstruction is seen. Liquid stool is noted in the remaining colon. There is no associated colonic wall thickening or inflammation. The appendix is surgically absent. Peritoneum: There is no intraperitoneal free air or abdominal ascites. Lymphadenopathy: None. Pelvic viscera: The bladder, prostate, and seminal vesicles are grossly normal as visualized. Postoperative change is present in the groin bilaterally. Skeletal structures: The skeletal structures are osteopenic. Again seen is a moderate chronic compression deformity of L2. Moderate lumbar lumbosacral spondylosis is observed. No lytic or blastic lesions are seen. A bone graft donor site is noted in the right ilium. IMPRESSION: 1. Liquid stool is noted in the remaining colon. Correlate clinically for evidence of a diarrheal illness. There is no associated colonic wall thickening or pericolonic inflammation. 2. There are postoperative changes from right hemicolectomy and ileocolic anastomosis. No bowel obstruction is seen. 3. Cholelithiasis. 4. Advanced atherosclerotic disease with postoperative change/bypass grafting as above. 5. Cardiomegaly and advanced emphysema. 6. A chronic compression deformity of L2 is similar to previous. 7. Additional findings as above. Assessment & Plan Fever without obvious source or localizing symptoms, with only right mastoid effusion being found on CT scanning. Mastoiditis could produce persistent fever , would expect more localizing findings. Also a.m. concerned about possibility of noninfectious source of fever such as vasculitic/autoimmune process. I have ordered additional studies to try to elucidate source of fever, and patient will be continued on current antibiotics pending further results. Id service will continue to follow.
[2017-02-19] MEDS: DRONABINOL 2.5 MG CAP PO SCH (16:55)
[2017-02-19] MEDS: ASPIRIN 81 MG ECTAB PO SCH (20:04)
[2017-02-19] MEDS: CHOLECALCIFEROL 1000 INTER.UNIT TAB PO SCH (20:04)
[2017-02-19] MEDS: ATORVASTATIN 40 MG TAB PO SCH (20:04)
[2017-02-19] MEDS: LOSARTAN POTASSIUM 50 MG TAB PO SCH (20:05)
[2017-02-20] VITALS (8 sets, daily range): BP systolic 100–144; BP diastolic 49–67; PULSE 72–91; TEMP 36.5–39; O2SAT 93–96
[2017-02-20] MEDS: PIPERACILL/TAZOBAC IV 3.375 GM in DEXTROSE 5% 100ML IV SCH ×4 (01:40→23:46)
[2017-02-20] MEDS: SODIUM CHLORIDE 0.9% 1000ML 1,000 ML IV SCH (02:40)
[2017-02-20] MEDS: DOXYCYCLINE HYCLATE 100 MG in DEXTROSE 5% 100ML IV SCH ×2 (04:03→15:56)
--- NOTE | 2017-02-20 07:16 | ELECTROENCEPHALOGRAPH REPORT ---
REQUESTED BY: Janie Norris MD. CLINICAL DIAGNOSIS: Probable toxic delirium related to underlying sepsis. ELECTROENCEPHALOGRAM DIAGNOSIS: Mildly diffusely abnormal EEG during wakefulness. DESCRIPTION OF TRACING: This EEG was done as a bedside recording with a simultaneous video analysis of patient movement and behavior was obtained. Photic stimulation was performed. There are a number of muscle movement artifacts throughout the recording, but by and large is quite interpretable. Under these conditions, there is evidence for a background rhythm in the upper theta and lower alpha range of about 8-9 Hz of maximum frequency and about 30 microvolts of maximum amplitude. This is maximum posterior head regions bilaterally symmetrical. Polymorphic mid to lower frequency of modest voltage theta activity is seen over all head regions without clear focal or regional predominance. Anterior head region, maximal bilaterally symmetrical low voltage fast activity is likely present and was difficult to discern beneath all the muscle artifact in the frontal leads. At no time during this tracing is there evidence for potentially epileptogenic activity in the form of polyspike or spike wave bursts, focal sharp waves or focal spikes. INTERPRETATION: This EEG is the most mildly diffusely abnormal without evidence for associated potentially epileptogenic patterns. The picture is certainly consistent with the clinical suspicion of a mild toxic encephalopathy or delirium. There are no lateralized features and again of importance is the fact that there is no ongoing or episodic potentially epileptogenic activity.
[2017-02-20] MEDS: BOOST VANILLA PO SCH ×6 (08:00→18:23)
[2017-02-20 08:16] LABS: HEMATOCRIT 22.6 % (42-52); MEAN CELL VOLUME 80.4 fL (80-100); MEAN CORPUSCULAR HEMOGLOBIN 26.7 pg (25-34); MEAN CORPUSCULAR HGB CONC 33.2 g/dl (32-36); MEAN PLATELET VOLUME 9.3 fL (7.4-10.4); PLATELET COUNT 238 K/uL (130-400); RED BLOOD COUNT 2.81 M/uL (4.7-6.1); WHITE BLOOD COUNT 3.39 K/uL (4.8-10.8)
[2017-02-20 08:39] LABS: BUN/CREATININE RATIO 10.2 (10-20); CREATININE 0.6 mg/dl (0.60-1.40); POTASSIUM 3.4 mmol/L (3.5-5.1)
[2017-02-20] MEDS: AMLODIPINE BESYLATE 5 MG TAB PO SCH (08:43)
[2017-02-20] MEDS: METOPROLOL SUCC 25MG EXT REL TAB PO SCH (08:44)
[2017-02-20] MEDS: DRONABINOL 2.5 MG CAP PO SCH (08:44)
[2017-02-20] MEDS: PANTOprazole SOD 40 MG TAB PO SCH (08:44)
[2017-02-20] MEDS: BACLOFEN 10 MG TAB PO SCH ×3 (08:44→20:04)
[2017-02-20 08:45] LABS: CALCIUM 7.7 mg/dl (8.5-10.1)
[2017-02-20] MEDS: BUDESONIDE/FORMOTEROL FUMARATE 160/4.5 60 PUFFS/INHALER INH SCH ×2 (08:45→20:01)
[2017-02-20] MEDS: IPRATROPIUM BROMIDE/ALBUTEROL respimat INH INH SCH ×4 (08:45→20:01)
[2017-02-20 09:11] LABS: COMPLETE YES; GIANT PLATELETS 1+; LYMPH ABS # 0.44 K/uL (1.2-3.4)
--- NOTE | 2017-02-20 11:13 | Progress Note ---
Internal Med Progress Note Date of Service: February 20, 2017. Provider Documentation: SUBJECTIVE: Seen and examined at bedside. Patient had low grade fever this morning. Intermittently confused per family at bedside. Denies chest pain, SOB, cough, abd pain, diarrhea. Offers no complaints. OBJECTIVE: Vital Signs-as noted below Physical Exam: General Appearance:Moderately built and nourished, no apparent distress Head: normocephalic, Atraumatic Eyes: normal inspection, EOMI, PERRL Neck: supple, Trachea midline Respiratory/Chest: Normal breath sounds, CTA Cardiovascular: S1, S2, No murmur Abdomen/GI:Soft, Non tender, Bowel sounds present Extremities/Musculoskelatal:normal inspection, no edema Neurologic/Psych:AAOX3, grossly no focal neurological deficits Skin: normal color, warm Lab data as noted below. ASSESSMENT & PLAN: Patient is a 76 yr old male with PMH of COPD, Chronic respiratory failure, Sick Sinus Syndrome s/p Pacemaker placement, PE off coumadin, other problems noted below presenting with recurrence of fever with altered mental status. POSSIBLE SEPSIS UNCLEAR SOURCE OF INFECTION Empirically on Zosyn and Doxy Blood and Urine cultures: No growth to date Lyme's titers:negative ID consulted: await for input S/P IV fluids CT chest:No acute findings Follow up peripheral smear and Serological work up ALTERED MENTAL STATUS ? Encephalopathic/Delirium Currently AAO X3 Hold Percocet, Marinol, Fentanyl patch Resumed baclofen (Reduced to 10mg TID from 20 TID) Resumed Ativan PRN to prevent withdrawals. Minimize as much. Appreciate Neurology input EEG:associated potentially epileptogenic patterns, consistent with encephalopathy Possible plan for CT head with contrast/LP per Neurology COPD CHRONIC HYPOXIC RESPIRATORY FAILURE No signs of exacerbation continue home inhalers, On 3 L oxygen HYPERTENSION continue home medications Stable CHRONIC ANEMIA Anemia of chronic disease No obvious source of bleeding Monitor Hb Hb drop today is likely hemodilutional CHRONIC HYPONATREMIA: stable Monitor sodium levels SSS sp PPM H/O AAA/PVD S/P surgery H/O Lung/Colon cancer: S/P surgery H/O Zenker's diverticulum: Slippery diet needed per prior RESP THERAPIST evaluation High risk for aspiration Former tobacco abuse DVT prophylaxis SCDs fall risk Code status Full Code Disposition: Continue to monitor PROCEDURES: EEG: This EEG is the most mildly diffusely abnormal without evidence for associated potentially epileptogenic patterns. The picture is certainly consistent with the clinical suspicion of a mild toxic encephalopathy or delirium. There are no lateralized features and again of importance is the fact that there is no ongoing or episodic potentially epileptogenic activity. CT chest: 1. Prior left lower lobectomy. 2. Emphysema. 3. No new focal lung consolidations to suggest pneumonia. 4. Trace left pleural effusion. 5. Heterogeneous perfusion of the spleen. This is nonspecific but could be related to the timing of contrast. Vital Signs: Date Time Temp Pulse Resp B/P Pulse Ox O2 Delivery O2 Flow Rate FiO2 02/20/17 08:00 93 Room Air 02/20/17 07:30 37.8 86 16 144/66 93 Room Air 02/20/17 00:00 Room Air 02/19/17 23:35 37.0 92 14 97/60 88 Room Air 02/19/17 19:55 127/67 02/19/17 16:00 Room Air 02/19/17 14:59 36.9 80 18 107/56 94 Room Air 02/19/17 13:40 88 96/54 02/19/17 13:11 91 96/57 Lab Results: Results Past 24 Hours Test 02/19/17 14:26 02/19/17 15:56 02/20/17 07:50 Range/Units Erythrocyte Sedimentation Rate 14 0-14 mm/hr Procalcitonin 0.29 0-0.5 ng/ml White Blood Count 3.39 4.8-10.8 K/uL Red Blood Count 2.81 4.7-6.1 M/uL Hemoglobin 7.5 14.0-18.0 g/dL Hematocrit 22.6 42-52 % Mean Corpuscular Volume 80.4 80-100 fL Mean Corpuscular Hemoglobin 26.7 25-34 pg Mean Corpuscular Hemoglobin Concent 33.2 32-36 g/dl Platelet Count 238 130-400 K/uL Mean Platelet Volume 9.3 7.4-10.4 fL RDW Standard Deviation 47.5 36.4-46.3 fL RDW Coefficient of Variation 15.9 11.5-14.5 % Neutrophils % (Manual) 65.0 % Lymphocytes % (Manual) 13.0 % Monocytes % (Manual) 19.0 % Basophils % (Manual) 3.0 0-2 % Neutrophils # (Manual) 2.20 1.4-6.5 K/uL Total Absolute Neutrophils 2.20 1.4-6.5 K/uL Lymphocytes # (Manual) 0.44 1.2-3.4 K/uL Total Absolute Lymphocytes 0.44 1.2-3.4 K/uL Monocytes # (Manual) 0.64 0.11-0.59 K/uL Basophils # (Manual) 0.10 0-0.2 K/uL Hypogranular Neutrophils 2+ Giant Platelets 1+ Peripheral Blood Smear Path Consult Sodium Level 127 136-145 mmol/L Potassium Level 3.4 3.5-5.1 mmol/L Chloride Level 96 98-107 mmol/L Carbon Dioxide Level 23 21-32 mmol/L Anion Gap 8.0 3-11 mmol/L Blood Urea Nitrogen 6 7-18 mg/dl Creatinine 0.60 0.60-1.40 mg/dl Est Creatinine Clear Calc Drug Dose 110.5 ml/min Estimated GFR () 112.4 Estimated GFR (Non- 97.0 BUN/Creatinine Ratio 10.2 10-20 Random Glucose 99 70-99 mg/dl Calcium Level 7.7 8.5-10.1 mg/dl
[2017-02-20] MEDS ORDERED: POTASSIUM CHLORIDE 10 MEQ TABCR PO ONE (11:15)
--- NOTE | 2017-02-20 16:03 | Infectious Disease Progress Nt ---
Progress Note Date of Service February 20, 2017. Subjective Pt evaluation today including: conversation w/ patient, physical exam, chart review, lab review, review of studies, conversation w/ hadoop consultant, review of inpatient medication list Patient continues to run low-grade fever associated with intermittent confusion. All cultures remain negative to date. No other new localizing signs or symptoms. All Other Systems: Reviewed and Negative Medications Current Inpatient Medications Medications (Trade) Dose Ordered Sig/Andrae Route Start Time Stop Time Status Last Admin Dose Admin Ioversol (Optiray 320) 100 ml UD PRN IV 02/17/17 21:15 02/21/17 21:14 Piperacillin Sod/ Tazobactam Sod (Consult) 1 ea UD PRN N/A 02/18/17 04:06 03/20/17 04:05 Amlodipine Besylate (Norvasc Tab) 10 mg QAM PO 02/18/17 09:00 03/20/17 08:59 02/20/17 08:43 10 MG Aspirin (Ecotrin Tab) 81 mg QPM PO 02/18/17 21:00 03/20/17 20:59 02/19/17 20:04 81 MG Atorvastatin Calcium (Lipitor Tab) 40 mg HS PO 02/18/17 21:00 03/20/17 20:59 02/19/17 20:04 40 MG Budesonide/ Formoterol Fumarate (Symbicort 160/ 4.5 Inh) 2 puffs BID INH 02/18/17 09:00 03/20/17 08:59 02/20/17 08:45 2 PUFFS Cholecalciferol (Vitamin D Tab) 1,000 inter.unit QPM PO 02/18/17 21:00 03/20/17 20:59 02/19/17 20:04 1,000 INTER.UNIT Hydralazine HCl (Apresoline Tab) 25 mg TID PO 02/18/17 09:00 03/20/17 08:59 02/20/17 14:49 25 MG Albuterol/ Ipratropium (Combivent Respimat Inh) 2 puffs QID INH 02/18/17 09:00 03/20/17 08:59 02/20/17 14:49 2 PUFFS Losartan Potassium (coZAAR TAB) 100 mg QPM PO 02/18/17 21:00 03/20/17 20:59 02/19/17 20:05 100 MG Metoprolol Succinate (Toprol Xl Tab) 25 mg DAILY PO 02/18/17 09:00 03/20/17 08:59 02/20/17 08:44 25 MG Pantoprazole Sodium (Protonix Tab) 40 mg DAILY PO 02/18/17 09:00 03/20/17 08:59 02/20/17 08:44 40 MG Acetaminophen 650 mg 650 mg Q4H PRN PO 02/18/17 01:00 03/20/17 00:59 02/18/17 23:42 650 MG Doxycycline Hyclate/Dextrose (Vibramycin IV/ D5 100ml) 110 ml @ 55 mls/hr Q12H IV 02/18/17 06:00 02/22/17 23:59 02/20/17 15:56 55 MLS/HR Miscellaneous Information 1 ea UD PRN N/A 02/18/17 04:15 03/20/17 04:14 Enteral Nutritional Formula (Boost) 1 can 3XDQ4 PO 02/18/17 16:00 03/20/17 15:59 02/20/17 14:48 1 CAN Ioversol (Optiray 320) 125 ml UD PRN IV 02/19/17 11:00 02/23/17 10:59 Lorazepam (Ativan Tab) 0.5 mg TID PRN PO 02/19/17 11:00 03/21/17 10:59 Zolpidem Tartrate (Ambien Tab) 10 mg HS PRN PO 02/19/17 11:00 03/21/17 10:59 Baclofen 10 mg 10 mg TID PO 02/19/17 14:00 03/21/17 13:59 02/20/17 14:49 10 MG Piperacillin Sod/ Tazobactam Sod/ Dextrose (Zosyn Iv/D5 100ml) 115 ml @ 230 mls/hr Q6H IV 02/20/17 18:00 02/22/17 23:59 Objective Vital Signs Date Time Temp Pulse Resp B/P Pulse Ox O2 Delivery O2 Flow Rate FiO2 02/20/17 15:17 37.0 91 18 109/59 96 Room Air 02/20/17 08:00 93 Room Air 02/20/17 07:30 37.8 86 16 144/66 93 Room Air 02/20/17 00:00 Room Air 02/19/17 23:35 37.0 92 14 97/60 88 Room Air 02/19/17 19:55 127/67 Physical Exam General Appearance: WD/WN, no apparent distress Eyes: normal inspection, sclerae normal ENT: normal ENT inspection, pharynx normal Neck: supple, no adenopathy, trachea midline Respiratory/Chest: chest non-tender, lungs clear, normal breath sounds, no respiratory distress Cardiovascular: regular rate, rhythm, no gallop, no murmur Abdomen: normal bowel sounds, non tender, soft, no organomegaly Extremities: non-tender, no calf tenderness Neurologic/Psychiatric: alert, + disoriented Skin: normal color, warm/dry, no rash Lymphatic: no adenopathy Laboratory Results Last 24 Hours Test 02/20/17 07:50 White Blood Count 3.39 K/uL Red Blood Count 2.81 M/uL Hemoglobin 7.5 g/dL Hematocrit 22.6 % Mean Corpuscular Volume 80.4 fL Mean Corpuscular Hemoglobin 26.7 pg Mean Corpuscular Hemoglobin Concent 33.2 g/dl Platelet Count 238 K/uL Mean Platelet Volume 9.3 fL RDW Standard Deviation 47.5 fL RDW Coefficient of Variation 15.9 % Neutrophils % (Manual) 65.0 % Lymphocytes % (Manual) 13.0 % Monocytes % (Manual) 19.0 % Basophils % (Manual) 3.0 % Neutrophils # (Manual) 2.20 K/uL Total Absolute Neutrophils 2.20 K/uL Lymphocytes # (Manual) 0.44 K/uL Total Absolute Lymphocytes 0.44 K/uL Monocytes # (Manual) 0.64 K/uL Basophils # (Manual) 0.10 K/uL Hypogranular Neutrophils 2+ Giant Platelets 1+ Peripheral Blood Smear Path Consult Sodium Level 127 mmol/L Potassium Level 3.4 mmol/L Chloride Level 96 mmol/L Carbon Dioxide Level 23 mmol/L Anion Gap 8.0 mmol/L Blood Urea Nitrogen 6 mg/dl Creatinine 0.60 mg/dl Est Creatinine Clear Calc Drug Dose 110.5 ml/min Estimated GFR () 112.4 Estimated GFR (Non- 97.0 BUN/Creatinine Ratio 10.2 Random Glucose 99 mg/dl Calcium Level 7.7 mg/dl Assessment and Plan Fever without obvious source or localizing symptoms, with only right mastoid effusion being found on CT scanning. Mastoiditis could produce persistent fever , would expect more localizing findings. Also a.m. concerned about possibility of noninfectious source of fever such as vasculitic/autoimmune process. I have ordered additional studies to try to elucidate source of fever, and patient will be continued on current antibiotics pending further results. Id service will continue to follow.
[2017-02-20] MEDS: ACETAMINOPHEN 325 MG TAB PO PRN (17:42)
--- NOTE | 2017-02-20 18:15 | PROGRESS NOTE ---
DATE: 02/20/2017 SUBJECTIVE: Ryley looks worse today. His temperature has not been particularly febrile. His laboratory studies have shown nothing and an unenhanced CT of the chest shows no evidence for abscess formation and his exam with the exception of a global confusion now lethargy is still nonfocal. There is no asterixis, myoclonus or focal motor weakness on any side, drift/pronation sign or clear evidence for sensory loss, although his mental status precludes a good exam. Looking through his chart, I notice we have never done a CAT scan with contrast. We cannot do an MRI, so I am going to suggest we do a contrast CT tomorrow allowing time for the contrast material to wash out following his chest CT yesterday and see if we do see any evidence for metastatic deposits which might be possible in view of his lung cancer history but I doubt it. I am wondering if we should not stop all antibiotics here. We are going on a presumption of this is an infectious illness, based on the fever, but to date there has been no documentation of a source and piperacillin in the elderly or in others can be associated with an encephalopathy and may even lead to seizures if there were a degree of renal failure which there is not. Doxycycline, which is also on board is pretty innocuous, and certainly could be continued, but I am questioning whether simply stopping everything and seeing if his mental status clears, might be the wisest choice. Another option would be to do a lumbar puncture again acting on the assumption that there may be some low grade meningeal involvement or even a meningeal carcinomatosis but I would find this unusual. One of his daughters brought up the possibility that he has dementia and I certainly agree that he undoubtedly has a vascular dementia, based on his CT appearance with a fair amount of leukoencephalopathy and I think in the appropriate clinical setting, he could have more of a delirium or protracted delirium due to his underlying cognitive impairment. But the cause of delirium is unclear and I wonder about some of this being iatrogenic due to antibiotic treatment. I am going to put the order in for the CT scan. I will check back on this tomorrow and Dr. Cai and I will discuss whether or not to proceed with a lumbar puncture at that time. FAY
[2017-02-20] MEDS: CHOLECALCIFEROL 1000 INTER.UNIT TAB PO SCH (20:02)
[2017-02-20] MEDS: ASPIRIN 81 MG ECTAB PO SCH (20:03)
[2017-02-20] MEDS: ATORVASTATIN 40 MG TAB PO SCH (20:03)
[2017-02-20] MEDS: LOSARTAN POTASSIUM 50 MG TAB PO SCH (20:19)
[2017-02-21] MEDS: DOXYCYCLINE HYCLATE 100 MG in DEXTROSE 5% 100ML IV SCH ×2 (04:08→15:48)
[2017-02-21] MEDS: LORAZEPAM 0.5 MG TAB PO PRN (05:10)
[2017-02-21 05:25] VITALS: TEMP 38
[2017-02-21] MEDS: ACETAMINOPHEN 325 MG TAB PO PRN (05:25)
[2017-02-21] MEDS: PIPERACILL/TAZOBAC IV 3.375 GM in DEXTROSE 5% 100ML IV SCH ×3 (06:41→18:10)
[2017-02-21 07:02] VITALS: BP 126/64; PULSE 81; TEMP 36.3; O2SAT 92
[2017-02-21 07:36] LABS: MEAN CELL VOLUME 81.3 fL (80-100); MEAN CORPUSCULAR HEMOGLOBIN 26.9 pg (25-34); MEAN PLATELET VOLUME 8.9 fL (7.4-10.4); PLATELET COUNT 291 K/uL (130-400); RED BLOOD COUNT 2.83 M/uL (4.7-6.1); WHITE BLOOD COUNT 4.06 K/uL (4.8-10.8)
[2017-02-21 08:00] VITALS: O2SAT 96
[2017-02-21 08:13] LABS: BUN/CREATININE RATIO 9.2 (10-20); CREATININE 0.6 mg/dl (0.60-1.40)
[2017-02-21 08:14] LABS: BASO ABS # 0.14 K/uL (0-0.2); BASOPHIL % 3.4 % (0-2); COMPLETE YES; GIANT PLATELETS 2+; LYMPH ABS # 0.63 K/uL (1.2-3.4); LYMPHOCYTE % 15.5 %; NEUTROPHILS % 61.3 %; POIKILOCYTOSIS PRESENT
[2017-02-21 08:29] LABS: CALCIUM 8.3 mg/dl (8.5-10.1)
[2017-02-21] MEDS ORDERED: OPTIRAY 320 IV PRN (08:30)
[2017-02-21] MEDS: IPRATROPIUM BROMIDE/ALBUTEROL respimat INH INH SCH ×4 (08:43→20:35)
--- NOTE | 2017-02-21 08:43 | DIAGNOSTIC IMAGING REPORT ---
HEAD CT WITH AND WITHOUT INTRAVENOUS CONTRAST. HISTORY: Lung cancer. Assess for metastatic disease. confusion TECHNIQUE: Multiaxial CT images of the head were performed both before and after the intravenous administration of contrast. COMPARISON STUDY: Head CT 02/17/2017. FINDINGS: The paranasal sinuses and left mastoid air cells are clear. Right mastoid effusion, unchanged. The calvarium and skull base are intact. Mild atrophy and microvascular ischemic changes are again noted. There is no hematoma, midline shift, or acute infarct. Stable small defect within the inner table of the right frontal bone on image 22 with a probable 8 mm soft tissue extra-axial lesion. This most likely represents a meningioma given the long-term stability dating back to a 2010 examination. IMPRESSION: 1. No significant change compared the prior studies. No acute intracranial abnormality. 2. No evidence for intracranial metastatic disease. 3. Right mastoid effusion, unchanged. Electronically signed by: Jrerell Collins M.D. 02/21/2017 8:42 AM Dictated Date/Time: 02/21/2017 8:34 AM
[2017-02-21] MEDS: BUDESONIDE/FORMOTEROL FUMARATE 160/4.5 60 PUFFS/INHALER INH SCH ×2 (08:45→20:35)
[2017-02-21] MEDS: PANTOprazole SOD 40 MG TAB PO SCH (08:45)
[2017-02-21] MEDS: BOOST VANILLA PO SCH ×6 (08:45→15:48)
[2017-02-21] MEDS: METOPROLOL SUCC 25MG EXT REL TAB PO SCH (08:45)
[2017-02-21] MEDS: BACLOFEN 10 MG TAB PO SCH ×3 (08:46→20:36)
[2017-02-21] MEDS: AMLODIPINE BESYLATE 5 MG TAB PO SCH (08:47)
[2017-02-21 15:44] VITALS: BP 122/66; PULSE 76; TEMP 36.9; O2SAT 90
--- NOTE | 2017-02-21 16:35 | Progress Note ---
Internal Med Progress Note Date of Service: February 21, 2017. Provider Documentation: SUBJECTIVE: Patient does get agitated on and off, especially at night. Granddaughter and daughter very frustrated and upset about the persistent fever/ AMS bouts. Patient is as such awake, alert, oriented x 3, knows who the president is, has good sense of humor. Denies any complaints and tired of being in the hospital Fever spike 38 C today AM. OBJECTIVE: Vital Signs-as noted below Exam: General Appearance:Moderately built and nourished, no apparent distress Head: normocephalic, Atraumatic Eyes: No icterus Neck: supple Respiratory/Chest: Normal breath sounds, CTA Cardiovascular: S1, S2, No murmur Abdomen/GI:Soft, Non tender, Bowel sounds present Extremities/Musculoskelatal: Normal inspection, no edema Neurologic/Psych:AAOX3, grossly no focal neurological deficits Skin: normal color, warm Lab data as noted below. ASSESSMENT & PLAN: ASSESSMENT & PLAN: Patient is a 76 yr old male with PMH of COPD, Chronic respiratory failure, Sick Sinus Syndrome s/p Pacemaker placement, PE off coumadin, other problems noted below presenting with recurrence of fever with altered mental status, recently discharged on 02/16/17 for fever/AMS. PERSISTENT FEVER OF UNKNOWN ORIGIN Patient was discharged from hospital on 02/16/17 for fever/ AMS, no clear source of infection was identified, was discharged on Levofloxacin x 7 days due to prior hx of recurrent pnuemonias , possible mild pulmonary infection component just for empiric treatment. Possibility of viral infection was considered as no source of infection was identified. Came back next day for persistent fever and altered mental status- increased confusion/disorientation. -Empirically on IV Zoysn and Doxycycline- Day 5 -Work up- CXR- no pneumonia, CT head - once with and once without contrast- no acute ab except right mastoid effusion, but no localized signs of mastoiditis, CT abd/pelvis- no acute infectious or inflammatory component noted, UA - negative for UTI, Urine cx - no significant growth, ESR - pending, Procalcitonin- 0.29 (normal). Lymes - negative -Pending tests: ZACH, Anti proteinese, ANCA, Anti Myeloperoxidase antibodies, Anti phagocytophilium antibodies. PLAN: As no infectious source identified so far, non infectious sources- autoimmune/vasculitic source considered. Follow up tests as mentioned above. Discussed with neurology, less likely there is meningeal source and patient is AAOX3 today, so would avoid any invasive testing like LP. Continue to monitor EPISODIC CONFUSION On and off gets agitated, confused, especially at night. Per family, for past 6 months - has had some issues with cognitive impairment, but for past few weeks since fever, worsening. Gets bouts of agitation, especially at night. -May be vascular dementia and may be gets delirious secondary to fever spikes ? -Held percocet, Marinol, Fentanyl patch, resumed baclofen, but reduced it to 10 mg TID from 20 mg TID, resumed ativan PRN to prevent withdrawals., but cautious use. -Work up- EEG:associated potentially epileptogenic patterns, consistent with encephalopathy ; CT head with and without contrast- done twice- no acute ab except right mastoid effusion -Discussed with neurology- No indication of LP at this point as patient improving and doubt there is a meningeal source. Would try to avoid medications when possible. COPD CHRONIC HYPOXIC RESPIRATORY FAILURE -No signs of exacerbation -continue home inhalers, On 3 L oxygen HYPERTENSION -continue home medications -Stable CHRONIC ANEMIA Anemia of chronic disease No obvious source of bleeding -Hb 7.6 with no overt signs of bleeding -Monitor H & H CHRONIC HYPONATREMIA:-stable Monitor sodium levels SSS sp PPM H/O AAA/PVD S/P surgery H/O Lung/Colon cancer: S/P surgery H/O Zenker's diverticulum: Slippery diet needed per prior [facility] evaluation High risk for aspiration DVT prophylaxis SCDs fall risk CODE STATUS Full Code DISPOSITION Continue to monitor Had a detailed discussion with Granddaughter and daughter by bedside Discussed with neurology by bedside. Vital Signs: Date Time Temp Pulse Resp B/P Pulse Ox O2 Delivery O2 Flow Rate FiO2 02/21/17 16:00 Room Air 02/21/17 15:44 36.9 76 18 122/66 90 Room Air 02/21/17 08:00 96 Room Air 02/21/17 07:02 36.3 81 20 126/64 92 02/21/17 05:25 38.0 02/21/17 00:00 Room Air 02/20/17 23:13 36.5 72 20 125/67 95 Room Air 02/20/17 21:30 36.7 02/20/17 19:57 37.0 100/49 02/20/17 18:43 37.6 02/20/17 17:40 39.0 Lab Results: Results Past 24 Hours Test 02/21/17 07:10 Range/Units White Blood Count 4.06 4.8-10.8 K/uL Red Blood Count 2.83 4.7-6.1 M/uL Hemoglobin 7.6 14.0-18.0 g/dL Hematocrit 23.0 42-52 % Mean Corpuscular Volume 81.3 80-100 fL Mean Corpuscular Hemoglobin 26.9 25-34 pg Mean Corpuscular Hemoglobin Concent 33.0 32-36 g/dl Platelet Count 291 130-400 K/uL Mean Platelet Volume 8.9 7.4-10.4 fL RDW Standard Deviation 47.2 36.4-46.3 fL RDW Coefficient of Variation 15.8 11.5-14.5 % Neutrophils % (Manual) 61.3 % Lymphocytes % (Manual) 15.5 % Monocytes % (Manual) 19.8 % Basophils % (Manual) 3.4 0-2 % Neutrophils # (Manual) 2.49 1.4-6.5 K/uL Total Absolute Neutrophils 2.49 1.4-6.5 K/uL Lymphocytes # (Manual) 0.63 1.2-3.4 K/uL Total Absolute Lymphocytes 0.63 1.2-3.4 K/uL Monocytes # (Manual) 0.80 0.11-0.59 K/uL Basophils # (Manual) 0.14 0-0.2 K/uL Giant Platelets 2+ Poikilocytosis PRESENT Sodium Level 133 136-145 mmol/L Potassium Level 4.0 3.5-5.1 mmol/L Chloride Level 101 98-107 mmol/L Carbon Dioxide Level 24 21-32 mmol/L Anion Gap 8.0 3-11 mmol/L Blood Urea Nitrogen 6 7-18 mg/dl Creatinine 0.60 0.60-1.40 mg/dl Est Creatinine Clear Calc Drug Dose 110.5 ml/min Estimated GFR () 112.4 Estimated GFR (Non- 97.0 BUN/Creatinine Ratio 9.2 10-20 Random Glucose 112 70-99 mg/dl Calcium Level 8.3 8.5-10.1 mg/dl Microbiology Results 02/20/17 Blood Culture, Received Pending 02/20/17 Blood Culture, Received Pending
--- NOTE | 2017-02-21 17:09 | PROGRESS NOTE ---
DATE: 02/21/2017 Ryley actually looks better today. He was awake and alert, knew where he was, knew the date. He could describe what are going on today versus yesterday status when he was lethargic and more confused. He has had CT of the head with contrast this time and it shows no evidence for metastatic disease despite his history of lung cancer and the area of abnormality in the mastoid is not described as being contrast enhancing, so I am not sure that this is active at all. He has had some connective tissue laboratory studies done, sed rate is mildly elevated but not to the point I would consider this a vasculitis and I still wonder about stopping all of his antibiotics, watching his fever and seeing what happens to his mental status overall. Dr. Maddox's consult was reviewed. He is in favor of continuing the antibiotics, waiting for the results of the connective tissue workup and I tend to agree, but by tomorrow if everything is pretty unremarkable, I still wonder about the approach of stopping antibiotics and observation. Dr. Devi has taken over the case and obtained a history from the family that suggests he has been getting a little more cognitively impaired over 6 months which would fit with the concept that this is a vascular dementia and consistent with his CT scans results. He could also have a mild mixed vascular and degenerative dementia. Only time will tell about the eventual diagnosis and I certainly would not townsend out and start him on Aricept or any of the other commercially available dementia medications at this point. I will check back with him tomorrow. I did discuss his case with Dr. Devi, and I think we are all on the same page and this one. KALEIDA HEALTHElio
[2017-02-21] MEDS: LOSARTAN POTASSIUM 50 MG TAB PO SCH (20:35)
[2017-02-21] MEDS: ATORVASTATIN 40 MG TAB PO SCH (20:36)
[2017-02-21] MEDS: ASPIRIN 81 MG ECTAB PO SCH (20:36)
[2017-02-21] MEDS: CHOLECALCIFEROL 1000 INTER.UNIT TAB PO SCH (20:36)
[2017-02-21 23:58] VITALS: BP 122/57; PULSE 85; TEMP 37; O2SAT 91
[2017-02-22] MEDS: PIPERACILL/TAZOBAC IV 3.375 GM in DEXTROSE 5% 100ML IV SCH ×2 (00:07→05:59)
[2017-02-22] MEDS ORDERED: COUGH DROP (SUGAR FREE) LOZ 24 LOZ/1 BOX ONE (01:49)
[2017-02-22] MEDS: DOXYCYCLINE HYCLATE 100 MG in DEXTROSE 5% 100ML IV SCH (03:55)
[2017-02-22] MEDS: ACETAMINOPHEN 325 MG TAB PO PRN ×3 (06:00→17:59)
[2017-02-22 06:08] LABS: BASO % 1.7 %; BASO ABS # 0.06 K/uL (0-0.2); HEMATOCRIT 25.3 % (42-52); IG% 0.3 %; LYMPH % 33.7 %; LYMPH ABS # 1.22 K/uL (1.2-3.4); MEAN CELL VOLUME 82.4 fL (80-100); MEAN CORPUSCULAR HEMOGLOBIN 27.4 pg (25-34); MEAN CORPUSCULAR HGB CONC 33.2 g/dl (32-36); MEAN PLATELET VOLUME 9.4 fL (7.4-10.4); MONO % 24.6 %; NEUT % 39.7 %; PLATELET COUNT 320 K/uL (130-400); RED BLOOD COUNT 3.07 M/uL (4.7-6.1); WHITE BLOOD COUNT 3.62 K/uL (4.8-10.8)
[2017-02-22 06:43] LABS: BUN/CREATININE RATIO 7.9 (10-20); CALCIUM 8.5 mg/dl (8.5-10.1); CREATININE 0.64 mg/dl (0.60-1.40); POTASSIUM 3.8 mmol/L (3.5-5.1)
[2017-02-22 07:19] VITALS: BP 135/65; PULSE 81; TEMP 36.7; O2SAT 96
[2017-02-22 07:21] LABS: COMPLETE YES; DOHLE BODIES 1+; LARGE PLATELETS 1+
[2017-02-22 08:00] VITALS: O2SAT 96
[2017-02-22] MEDS: BOOST VANILLA PO SCH ×6 (09:00→16:10)
[2017-02-22] MEDS: AMLODIPINE BESYLATE 5 MG TAB PO SCH (09:00)
[2017-02-22] MEDS: BUDESONIDE/FORMOTEROL FUMARATE 160/4.5 60 PUFFS/INHALER INH SCH ×2 (09:01→21:15)
[2017-02-22] MEDS: BACLOFEN 10 MG TAB PO SCH ×3 (09:01→21:16)
[2017-02-22] MEDS: PANTOprazole SOD 40 MG TAB PO SCH (09:01)
[2017-02-22] MEDS: IPRATROPIUM BROMIDE/ALBUTEROL respimat INH INH SCH ×4 (09:01→21:15)
[2017-02-22] MEDS: METOPROLOL SUCC 25MG EXT REL TAB PO SCH (09:02)
--- NOTE | 2017-02-22 09:46 | Progress Note ---
Internal Med Progress Note Date of Service: Feb 22, 2017. Provider Documentation: SUBJECTIVE: Patient is doing better. Had a better night yesterday- rested but still feels tired and sleepy during day time and wants to be discharged Patient is as such awake, alert, oriented x 3, knows who the president is, has good sense of humor. Denies any complaints and tired of being in the hospital Afebrile since yesterday OBJECTIVE: Vital Signs-as noted below Exam: General Appearance:Moderately built and nourished, no apparent distress, AAOX3 Head: normocephalic, Atraumatic Eyes: No icterus Neck: supple Respiratory/Chest: Normal breath sounds, CTA Cardiovascular: S1, S2, No murmur Abdomen/GI:Soft, Non tender, Bowel sounds present Extremities/Musculoskelatal: Normal inspection, no edema Neurologic/Psych:AAOX3, grossly no focal neurological deficits Skin: normal color, warm Lab data as noted below. ASSESSMENT & PLAN: ASSESSMENT & PLAN: Patient is a 76 yr old male with PMH of COPD, Chronic respiratory failure, Sick Sinus Syndrome s/p Pacemaker placement, PE off coumadin, other problems noted below presenting with recurrence of fever with altered mental status, recently discharged on 02/16/17 for fever/AMS. PERSISTENT FEVER OF UNKNOWN ORIGIN Patient was discharged from hospital on 02/16/17 for fever/ AMS, no clear source of infection was identified, was discharged on Levofloxacin x 7 days due to prior hx of recurrent pnuemonias , possible mild pulmonary infection component just for empiric treatment. Possibility of viral infection was considered as no source of infection was identified. Came back next day for persistent fever and altered mental status- increased confusion/disorientation. -Empirically on IV Zoysn and Doxycycline- Day 6 -Work up- CXR- no pneumonia, CT head - once with and once without contrast- no acute ab except right mastoid effusion, but no localized signs of mastoiditis, CT abd/pelvis- no acute infectious or inflammatory component noted, UA - negative for UTI, Urine cx - no significant growth, ESR - 14, Procalcitonin- 0.29 (normal). Lymes - negative -Pending tests: ZACH, Anti proteinese, ANCA, Anti Myeloperoxidase antibodies, Anti phagocytophilium antibodies. PLAN: As no infectious source identified so far, non infectious sources- autoimmune/vasculitic source considered. Follow up tests as mentioned above. Discussed with neurology, less likely there is meningeal source and patient is AAOX3 and improving, so would avoid any invasive testing like LP. Will discuss with Dr Maddox to consider discontinuing antibiotics. EPISODIC CONFUSION - on and off On and off gets agitated, confused, especially at night. Per family, for past 6 months - has had some issues with cognitive impairment, but for past few weeks since fever, worsening and different in presentation. Night was much better yesterday -May be vascular dementia and may be gets delirious secondary to fever spikes ? -Held percocet, Marinol, Fentanyl patch, resumed baclofen but reduced it to 10 mg TID from 20 mg TID, resumed Ativan PRN to prevent withdrawals, but cautious use. -Work up- EEG- associated potentially epileptogenic patterns, consistent with encephalopathy ; CT head with and without contrast- done twice- no acute ab except right mastoid effusion -Discussed with neurology - No indication of LP at this point as patient improving and doubt there is a meningeal source. Would try to avoid more medications if possible. 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 Encouraged patient to ambulate, have a better sleep pattern- avoid naps during day time. Given permission to go down to the [employer] with daughter. Had a detailed discussion with daughter by bedside Vital Signs: Date Time Temp Pulse Resp B/P (MAP) Pulse Ox O2 Delivery O2 Flow Rate FiO2 02/22/17 07:19 36.7 81 20 135/65 (88) 96 Nasal Cannula 2.5 02/22/17 00:00 Nasal Cannula 2.0 02/21/17 23:58 37.0 85 20 122/57 (78) 91 2.0 02/21/17 16:00 Room Air 02/21/17 15:44 36.9 76 18 122/66 (84) 90 Room Air Lab Results: Results Past 24 Hours Test 02/22/17 05:45 Range/Units White Blood Count 3.62 4.8-10.8 K/uL Red Blood Count 3.07 4.7-6.1 M/uL Hemoglobin 8.4 14.0-18.0 g/dL Hematocrit 25.3 42-52 % Mean Corpuscular Volume 82.4 80-100 fL Mean Corpuscular Hemoglobin 27.4 25-34 pg Mean Corpuscular Hemoglobin Concent 33.2 32-36 g/dl Platelet Count 320 130-400 K/uL Mean Platelet Volume 9.4 7.4-10.4 fL Neutrophils (%) (Auto) 39.7 % Lymphocytes (%) (Auto) 33.7 % Monocytes (%) (Auto) 24.6 % Eosinophils (%) (Auto) 0.0 % Basophils (%) (Auto) 1.7 % Neutrophils # (Auto) 1.44 1.4-6.5 K/uL Lymphocytes # (Auto) 1.22 1.2-3.4 K/uL Monocytes # (Auto) 0.89 0.11-0.59 K/uL Eosinophils # (Auto) 0.00 0-0.5 K/uL Basophils # (Auto) 0.06 0-0.2 K/uL RDW Standard Deviation 48.9 36.4-46.3 fL RDW Coefficient of Variation 16.1 11.5-14.5 % Immature Granulocyte % (Auto) 0.3 % Immature Granulocyte # (Auto) 0.01 0.00-0.02 K/uL Hypogranular Neutrophils 3+ Dohle Bodies 1+ Large Platelets 1+ Sodium Level 131 136-145 mmol/L Potassium Level 3.8 3.5-5.1 mmol/L Chloride Level 97 98-107 mmol/L Carbon Dioxide Level 26 21-32 mmol/L Anion Gap 8.0 3-11 mmol/L Blood Urea Nitrogen 5 7-18 mg/dl Creatinine 0.64 0.60-1.40 mg/dl Est Creatinine Clear Calc Drug Dose 103.6 ml/min Estimated GFR () 109.5 Estimated GFR (Non- 94.4 BUN/Creatinine Ratio 7.9 10-20 Random Glucose 99 70-99 mg/dl Calcium Level 8.5 8.5-10.1 mg/dl
[2017-02-22] MEDS: LORAZEPAM 0.5 MG TAB PO PRN (11:03)
--- NOTE | 2017-02-22 13:56 | Infectious Disease Progress Nt ---
Progress Note Date of Service Feb 22, 2017. Subjective Pt evaluation today including: conversation w/ patient, physical exam, chart review, lab review, review of studies, conversation w/ storage consultant, review of inpatient medication list No new complaints. Says he is at baseline. No fever for 24 hours. All cultures remain negative. All Other Systems: Reviewed and Negative Medications Current Inpatient Medications Medications (Trade) Dose Ordered Sig/Andrae Route Start Time Stop Time Status Last Admin Dose Admin Amlodipine Besylate (Norvasc Tab) 10 mg QAM PO 02/18/17 09:00 03/20/17 08:59 02/22/17 09:00 10 MG Aspirin (Ecotrin Tab) 81 mg QPM PO 02/18/17 21:00 03/20/17 20:59 02/21/17 20:36 81 MG Atorvastatin Calcium (Lipitor Tab) 40 mg HS PO 02/18/17 21:00 03/20/17 20:59 02/21/17 20:36 40 MG Budesonide/ Formoterol Fumarate (Symbicort 160/ 4.5 Inh) 2 puffs BID INH 02/18/17 09:00 03/20/17 08:59 02/22/17 09:01 2 PUFFS Cholecalciferol (Vitamin D Tab) 1,000 inter.unit QPM PO 02/18/17 21:00 03/20/17 20:59 02/21/17 20:36 1,000 INTER.UNIT Hydralazine HCl (Apresoline Tab) 25 mg TID PO 02/18/17 09:00 03/20/17 08:59 02/22/17 13:50 25 MG Albuterol/ Ipratropium (Combivent Respimat Inh) 2 puffs QID INH 02/18/17 09:00 03/20/17 08:59 02/22/17 13:50 2 PUFFS Losartan Potassium (coZAAR TAB) 100 mg QPM PO 02/18/17 21:00 03/20/17 20:59 02/21/17 20:35 100 MG Metoprolol Succinate (Toprol Xl Tab) 25 mg DAILY PO 02/18/17 09:00 03/20/17 08:59 02/22/17 09:02 25 MG Pantoprazole Sodium (Protonix Tab) 40 mg DAILY PO 02/18/17 09:00 03/20/17 08:59 02/22/17 09:01 40 MG Acetaminophen (Tylenol Tab) 650 mg Q4H PRN PO 02/18/17 01:00 03/20/17 00:59 02/22/17 11:04 650 MG Enteral Nutritional Formula (Boost) 1 can 3XDQ4 PO 02/18/17 16:00 03/20/17 15:59 02/22/17 13:51 1 CAN Ioversol (Optiray 320) 125 ml UD PRN IV 02/19/17 11:00 02/23/17 10:59 Lorazepam (Ativan Tab) 0.5 mg TID PRN PO 02/19/17 11:00 03/21/17 10:59 02/22/17 11:03 0.5 MG Zolpidem Tartrate (Ambien Tab) 10 mg HS PRN PO 02/19/17 11:00 03/21/17 10:59 Baclofen (Lioresal Tab) 10 mg TID PO 02/19/17 14:00 03/21/17 13:59 02/22/17 13:50 10 MG Ioversol (Optiray 320) 125 ml UD PRN IV 02/21/17 08:30 02/25/17 08:29 Objective Vital Signs Date Time Temp Pulse Resp B/P (MAP) Pulse Ox O2 Delivery O2 Flow Rate FiO2 02/22/17 08:00 96 Room Air 02/22/17 07:19 36.7 81 20 135/65 (88) 96 Nasal Cannula 2.5 02/22/17 00:00 Nasal Cannula 2.0 02/21/17 23:58 37.0 85 20 122/57 (78) 91 2.0 02/21/17 16:00 Room Air 02/21/17 15:44 36.9 76 18 122/66 (84) 90 Room Air Physical Exam General Appearance: WD/WN, no apparent distress Eyes: normal inspection, sclerae normal ENT: normal ENT inspection, pharynx normal Neck: supple, no adenopathy, trachea midline Respiratory/Chest: lungs clear, normal breath sounds, no respiratory distress Cardiovascular: regular rate, rhythm, no gallop, no murmur Abdomen: normal bowel sounds, non tender, soft, no organomegaly Extremities: non-tender, no calf tenderness Neurologic/Psychiatric: alert, oriented x 3 Skin: normal color, warm/dry, no rash Lymphatic: no adenopathy Laboratory Results Last 24 Hours Test 02/22/17 05:45 White Blood Count 3.62 K/uL Red Blood Count 3.07 M/uL Hemoglobin 8.4 g/dL Hematocrit 25.3 % Mean Corpuscular Volume 82.4 fL Mean Corpuscular Hemoglobin 27.4 pg Mean Corpuscular Hemoglobin Concent 33.2 g/dl Platelet Count 320 K/uL Mean Platelet Volume 9.4 fL Neutrophils (%) (Auto) 39.7 % Lymphocytes (%) (Auto) 33.7 % Monocytes (%) (Auto) 24.6 % Eosinophils (%) (Auto) 0.0 % Basophils (%) (Auto) 1.7 % Neutrophils # (Auto) 1.44 K/uL Lymphocytes # (Auto) 1.22 K/uL Monocytes # (Auto) 0.89 K/uL Eosinophils # (Auto) 0.00 K/uL Basophils # (Auto) 0.06 K/uL RDW Standard Deviation 48.9 fL RDW Coefficient of Variation 16.1 % Immature Granulocyte % (Auto) 0.3 % Immature Granulocyte # (Auto) 0.01 K/uL Hypogranular Neutrophils 3+ Dohle Bodies 1+ Large Platelets 1+ Sodium Level 131 mmol/L Potassium Level 3.8 mmol/L Chloride Level 97 mmol/L Carbon Dioxide Level 26 mmol/L Anion Gap 8.0 mmol/L Blood Urea Nitrogen 5 mg/dl Creatinine 0.64 mg/dl Est Creatinine Clear Calc Drug Dose 103.6 ml/min Estimated GFR () 109.5 Estimated GFR (Non- 94.4 BUN/Creatinine Ratio 7.9 Random Glucose 99 mg/dl Calcium Level 8.5 mg/dl Assessment and Plan Fever without obvious source or localizing symptoms, with only right mastoid effusion being found on CT scanning. Mastoiditis could produce persistent fever , would expect more localizing findings. Also I am concerned about possibility of noninfectious source of fever such as vasculitic/autoimmune process. I have ordered additional studies to try to elucidate source of fever. Antibiotics to be held for now.
[2017-02-22 15:02] VITALS: BP 110/61; PULSE 78; TEMP 36.3; O2SAT 94
--- NOTE | 2017-02-22 20:36 | PROGRESS NOTE ---
DATE: 02/22/2017 Ryley looks pretty good today. He is in street clothes. He went outside. He is with his family. He is a little edgy and just beside of being agitated, but his speech makes sense. He is oriented. He does not have any complaints. There are no focal neurologic signs and after discussion with the family members, it was clear that there has been some cognitive decline over the past year or so likely due to his vascular dementia and perhaps some element of degenerative dementia, but the distinction here is academic as we are not going to treat it. Right now, he has had a delirium associated with fever, the cause of which remains unclear. I am curious about whether some of the antibiotics that have been used to treat his presumptive infection have not also produced or clouded his encephalopathy further. Infectious disease is on board. A workup for noninfectious cause is underway and neurologically we have and essentially negative CT of the head with contrast enhancement with no evidence for metastatic disease- important I believe because of his history of lung CA- and an EEG that shows no ongoing seizure activity or any other significant abnormality. At this point, neurology is going to sign off the case with the diagnosis that this to a delirium superimposed up on a mild cognitive impairment syndrome or early dementia. We could see him on an outpatient basis as needed once his current medical illness is stabilized and treated appropriately. Dr Brar would be around on the consult service for the next week and if there is any change in his status for which neurology reevaluation is required, I would suggest she be contacted. FAY
[2017-02-22 21:14] VITALS: BP 116/47; PULSE 79
[2017-02-22] MEDS: CHOLECALCIFEROL 1000 INTER.UNIT TAB PO SCH (21:15)
[2017-02-22] MEDS: ASPIRIN 81 MG ECTAB PO SCH (21:15)
[2017-02-22] MEDS: ATORVASTATIN 40 MG TAB PO SCH (21:15)
[2017-02-22] MEDS: LOSARTAN POTASSIUM 50 MG TAB PO SCH (21:16)
[2017-02-22 23:00] VITALS: BP 122/69; PULSE 88; TEMP 36.9; O2SAT 94
[2017-02-23] VITALS (9 sets, daily range): BP systolic 111–149; BP diastolic 58–69; PULSE 73–99; TEMP 36.5–38.5; O2SAT 88–98
[2017-02-23] MEDS: ACETAMINOPHEN 325 MG TAB PO PRN ×2 (02:45→19:02)
[2017-02-23] MEDS: LORAZEPAM 0.5 MG TAB PO PRN ×3 (03:21→20:07)
[2017-02-23] MEDS ORDERED: ALBUT/IPRATROP 3MG/0.5MG NEB 3 ML VIAL INH PRN (04:15)
--- NOTE | 2017-02-23 06:48 | DIAGNOSTIC IMAGING REPORT ---
CHEST ONE VIEW PORTABLE CLINICAL HISTORY: Wheezing COMPARISON STUDY: 02/17/2017 FINDINGS: The heart is the upper limits of normal in size. There is evidence for underlying pulmonary emphysema. There is a left subclavian dual-chamber central venous pacemaker present. There is elevation left hemidiaphragm. Linear left basilar opacities are felt to be atelectatic. Postsurgical changes are again evident on the left.[ IMPRESSION: 1. Postsurgical changes on the left with elevation of the left hemidiaphragm and left basilar atelectasis 2. Emphysema 3. No acute findings. Electronically signed by: Hai Valdez M.D. 02/23/2017 6:46 AM Dictated Date/Time: 02/23/2017 6:45 AM
[2017-02-23] MEDS: BACLOFEN 10 MG TAB PO SCH ×3 (08:12→20:09)
[2017-02-23] MEDS: AMLODIPINE BESYLATE 5 MG TAB PO SCH (08:13)
[2017-02-23] MEDS: PANTOprazole SOD 40 MG TAB PO SCH (08:13)
[2017-02-23] MEDS: BOOST VANILLA PO SCH ×6 (08:13→16:00)
[2017-02-23] MEDS: METOPROLOL SUCC 25MG EXT REL TAB PO SCH (08:13)
[2017-02-23] MEDS: IPRATROPIUM BROMIDE/ALBUTEROL respimat INH INH SCH ×4 (08:14→20:06)
[2017-02-23] MEDS: BUDESONIDE/FORMOTEROL FUMARATE 160/4.5 60 PUFFS/INHALER INH SCH ×2 (08:14→20:06)
--- NOTE | 2017-02-23 10:02 | Progress Note ---
Internal Med Progress Note Date of Service: Feb 23, 2017. Provider Documentation: SUBJECTIVE: Patient again was a little agitated overnight. Had some wheezing, but now better- no worsening of SOB from baseline, no cough, chest pain. Had fever spike of 38.5 at 2:45 AM yesterday. Today morning he is awake, alert, oriented x 3, knows who the president is, has good sense of humor. Denies any complaints and tired of being in the hospital and wants to be discharged OBJECTIVE: Vital Signs-as noted below Exam: General Appearance: Moderately built and nourished, no apparent distress, AAOX3 Head: normocephalic, Atraumatic Eyes: No icterus Neck: supple Respiratory/Chest: Normal breath sounds, CTA Cardiovascular: S1, S2, No murmur Abdomen/GI:Soft, Non tender, Bowel sounds present Extremities/Musculoskelatal: Normal inspection, no edema Neurologic/Psych:AAOX3, grossly no focal neurological deficits Skin: normal color, warm Lab data as noted below. ASSESSMENT & PLAN: ASSESSMENT & PLAN: Patient is a 76 yr old male with PMH of COPD, Chronic respiratory failure, Sick Sinus Syndrome s/p Pacemaker placement, PE off coumadin, other problems noted below presenting with recurrence of fever with altered mental status, recently discharged on 02/16/17 for fever/AMS. PERSISTENT FEVER OF UNKNOWN ORIGIN : Patient was discharged from hospital on 02/16/17 for fever/ AMS, no clear source of infection was identified, was discharged on Levofloxacin x 7 days due to prior hx of recurrent pnuemonias , possible mild pulmonary infection component just for empiric treatment. Possibility of viral infection was considered as no source of bacterial infection was identified. Came back next day for persistent fever and altered mental status- increased confusion/disorientation. -Empirically received IV Zoysn and Doxycycline x Days 6. Discontinued on 02/22/17 as no infectious source suspected per d/w with ID. -Work up- CXR- no pneumonia, CT head - once with and once without contrast- no acute ab except right mastoid effusion, but no localized signs of mastoiditis, CT abd/pelvis- no acute infectious or inflammatory component noted, UA - negative for UTI, Urine cx - no significant growth, ESR - 14, Procalcitonin- 0.29 (normal). Lymes - negative -Pending tests: ZACH, Anti proteinese, ANCA, Anti Myeloperoxidase antibodies, Anti phagocytophilium antibodies. PLAN: As no infectious source identified so far, non infectious sources- autoimmune/vasculitic source considered. Follow up tests as mentioned above- pending results. Discussed with neurology, less likely there is meningeal source and patient is AAOX3 and improving, so would avoid any invasive testing like LP. Neurology signed off. Discussed with family/Dr Maddox at length - no signs of sepsis/no infectious source identified, so though continues to have fever spikes, OK to discharge to placement while need to continue with close monitoring outpatient with follow ups with PCP/ID. Would not give any antibiotics. Patient does tend to get more agitated overnight while in the hospital. EPISODIC CONFUSION - on and off On and off gets agitated, confused, especially at night. Per family, for past 6 months - has had some issues with cognitive impairment, but for past few weeks since fever, worsening and different in presentation. Continues to be agitated on and off at night. -May be vascular dementia vs cognitive impairment at baseline and gets delirious due to fever spikes ? . Neurology has similar opinion. -Held percocet, Marinol, Fentanyl patch, resumed baclofen but reduced it to 10 mg TID from 20 mg TID, resumed Ativan PRN to prevent withdrawals, but cautious use. -Would give Melatonin q HS to help with delirium at night, but not available on formulary- should give outpatient. -Work up- EEG- associated potentially epileptogenic patterns, consistent with encephalopathy ; CT head with and without contrast- done twice- no acute ab except right mastoid effusion -Discussed with neurology - No indication of LP at this point as patient improving and doubt there is a meningeal source. Would try to avoid more medications if possible. COPD CHRONIC HYPOXIC RESPIRATORY FAILURE -Had some wheezing overnight, CXR was repeated- Emphysema and no new findings. 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 [place] [facility] [place] [facility] [place]. Discussed with family/Dr Maddox at length - no signs of sepsis/no infectious source identified, so though continues to have fever spikes, OK to discharge to placement while need to continue with close monitoring outpatient with follow ups with PCP/ID as patient does tend to get more agitated overnight while in the hospital. Family agreeable with discharge plan Ok to discharge to rehab when bed available Vital Signs: Date Time Temp Pulse Resp B/P (MAP) Pulse Ox O2 Delivery O2 Flow Rate FiO2 02/23/17 07:36 36.5 87 18 111/61 (78) 93 Nasal Cannula 2.0 02/23/17 04:18 73 16 98 Nasal Cannula 4.0 02/23/17 02:45 38.5 93 22 120/65 (83) 98 Nasal Cannula 2.0 02/23/17 00:00 Nasal Cannula 2.0 02/22/17 23:00 36.9 88 18 122/69 (86) 94 Nasal Cannula 2.0 02/22/17 21:14 79 116/47 (70) 02/22/17 16:00 Room Air 02/22/17 15:02 36.3 78 16 110/61 (77) 94 Room Air Lab Results: Microbiology Results 02/22/17 C.difficile Toxin B Gene (PCR) - Final, Complete No C. difficile toxin B gene detected
[2017-02-23] MEDS: CHOLECALCIFEROL 1000 INTER.UNIT TAB PO SCH (20:08)
[2017-02-23] MEDS: ASPIRIN 81 MG ECTAB PO SCH (20:09)
[2017-02-23] MEDS: ATORVASTATIN 40 MG TAB PO SCH (20:09)
[2017-02-23] MEDS: LOSARTAN POTASSIUM 50 MG TAB PO SCH (20:10)
[2017-02-23] MEDS ORDERED: OLANZAPINE 2.5 MG TAB PO SCH (21:00)
[2017-02-23 23:31] LABS: ANAPLASMA PHAGOCYTOPHIL IGG <1:64 (<1:64); ANAPLASMA PHAGOCYTOPHIL IGM <1:20 (<1:20); MYELOPEROXIDASE AB <1.0 AI (<1.0)
[2017-02-24 00:19] VITALS: BP 128/59; PULSE 87; TEMP 36.9; O2SAT 93
[2017-02-24] MEDS: LORAZEPAM 0.5 MG TAB PO PRN (03:32)
[2017-02-24 07:51] VITALS: BP 126/72; PULSE 90; TEMP 36.4; O2SAT 99
[2017-02-24] MEDS: PANTOprazole SOD 40 MG TAB PO SCH (08:08)
[2017-02-24] MEDS: AMLODIPINE BESYLATE 5 MG TAB PO SCH (08:09)
[2017-02-24] MEDS: METOPROLOL SUCC 25MG EXT REL TAB PO SCH (08:09)
[2017-02-24] MEDS: BACLOFEN 10 MG TAB PO SCH ×3 (08:09→20:19)
[2017-02-24] MEDS: BUDESONIDE/FORMOTEROL FUMARATE 160/4.5 60 PUFFS/INHALER INH SCH ×2 (08:09→20:15)
[2017-02-24] MEDS: BOOST VANILLA PO SCH ×6 (08:09→17:04)
[2017-02-24] MEDS: IPRATROPIUM BROMIDE/ALBUTEROL respimat INH INH SCH ×4 (08:09→20:15)
[2017-02-24 08:34] VITALS: O2SAT 98
[2017-02-24 11:45] VITALS: BP 128/74; PULSE 88; TEMP 36.6; O2SAT 95
--- NOTE | 2017-02-24 12:06 | Progress Note ---
Internal Med Progress Note Date of Service: Feb 24, 2017. Provider Documentation: SUBJECTIVE : Patient again had increased agitation overnight and now doing well- AAOX3. No more fever spikes since yesterday afternoon. Denies any complaints and tired of being in the hospital and wants to be discharged. Family is very frustrated and upset as continues to have agitative episodes especially at night and no clear cause of fever. Started on zyprexa 2.5 mg yesterday night, but did not help much. OBJECTIVE: Vital Signs-as noted below Exam: General Appearance: Moderately built and nourished, no apparent distress, AAOX3 Head: normocephalic, Atraumatic Eyes: No icterus Neck: supple Respiratory/Chest: Normal breath sounds, CTA Cardiovascular: S1, S2, No murmur Abdomen/GI:Soft, Non tender, Bowel sounds present Extremities/Musculoskelatal: Normal inspection, no edema Neurologic/Psych:AAOX3, grossly no focal neurological deficits Skin: normal color, warm Lab data as noted below. ASSESSMENT & PLAN: ASSESSMENT & PLAN: Patient is a 76 yr old male with PMH of COPD, Chronic respiratory failure, Sick Sinus Syndrome s/p Pacemaker placement, PE off coumadin, other problems noted below presenting with recurrence of fever with altered mental status, recently discharged on 02/16/17 for fever/AMS. PERSISTENT FEVER OF UNKNOWN ORIGIN : Patient was discharged from hospital on 02/16/17 for fever/ AMS, no clear source of infection was identified, was discharged on Levofloxacin x 7 days due to prior hx of recurrent pnuemonias , possible mild pulmonary infection component just for empiric treatment. Possibility of viral infection was considered as no source of bacterial infection was identified. Came back next day for persistent fever and altered mental status- increased confusion/disorientation. -Empirically received IV Zoysn and Doxycycline x Days 6. Discontinued on 02/22/17 as no infectious source suspected per d/w with ID. -Work up- CXR- no pneumonia, CT head - once with and once without contrast- no acute ab except right mastoid effusion, but no localized signs of mastoiditis, CT abd/pelvis- no acute infectious or inflammatory component noted, UA - negative for UTI, Urine cx - no significant growth, ESR - 14, Procalcitonin- 0.29 (normal). Lymes - negative, Anti phagocytophilium antibodies . Infectious work up during last admission was negative as well. -Non infectious work up this admission - ZACH, Anti proteinese, ANCA, Anti Myeloperoxidase antibodies, - came back negative, ESR- 14 PLAN: As no infectious source identified so far, non infectious sources- autoimmune/vasculitic source considered. Follow up tests as mentioned above came back negative also. Discussed with neurology, less likely there is meningeal source and patient is AAOX3 except agitative episodes at night time, so would avoid any invasive testing like LP. Neurology signed off. Discussed with family/Dr Maddox at length - no signs of sepsis/no infectious source identified, so though continues to have fever spikes, OK to discharge to placement while need to continue with close monitoring outpatient with follow ups with PCP/ID. Would not give any antibiotics. Patient does tend to get more agitated overnight while in the hospital EPISODIC CONFUSION - on and off On and off gets agitated, confused, especially at night. During day time does well Per family, for past 6 months - has had some issues with cognitive impairment, but for past few weeks since fever, worsening and different in presentation. -May be vascular dementia vs cognitive impairment at baseline and gets delirious due to fever spikes ? . Neurology has similar opinion. -Held percocet, Marinol, Fentanyl patch, resumed baclofen but reduced it to 10 mg TID from 20 mg TID, resumed Ativan PRN to prevent withdrawals, but cautious use. -Would give Melatonin q HS to help with delirium at night, but not available on formulary- should give outpatient. -Started zyprexa 2.5 mg on 6/2 night, but didnt help, will increase it to 5 mg tonight -Work up- EEG- associated potentially epileptogenic patterns, consistent with encephalopathy ; CT head with and without contrast- done twice- no acute ab except right mastoid effusion -Discussed with neurology - No indication of LP at this point as patient improving and doubt there is a meningeal source. Would try to avoid more medications if possible. COPD CHRONIC HYPOXIC RESPIRATORY FAILURE -Had some wheezing on and off, CXR was repeated- Emphysema and no new findings. 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 Gave permission to go down to the healing garden with daughter. Discussed with family/Dr Maddox/Dr Lima at length - no signs of sepsis/no infectious source identified, so though continues to have fever spikes, OK to discharge to placement while need to continue with close monitoring outpatient with follow ups with PCP/ID as patient does tend to get more agitated overnight while in the hospital. Family initially agreeable with the discharge plan, but today more frustrated because unable to find etiology of fever and continues to get agitated at night. Will discuss with daughters again today Vital Signs: Date Time Temp Pulse Resp B/P (MAP) Pulse Ox O2 Delivery O2 Flow Rate FiO2 02/24/17 11:45 36.6 88 18 128/74 (92) 95 Room Air 02/24/17 08:34 98 Room Air 02/24/17 07:51 36.4 90 18 126/72 (90) 99 Nasal Cannula 2.0 02/24/17 07:32 Nasal Cannula 2.0 02/24/17 01:17 Room Air 02/24/17 00:19 36.9 87 18 128/59 (82) 93 Nasal Cannula 3.0 02/23/17 22:17 36.7 02/23/17 21:27 93 Nasal Cannula 2.0 02/23/17 20:07 86 120/58 (78) 02/23/17 16:00 Room Air 02/23/17 15:57 37.4 02/23/17 15:11 37.5 99 18 149/69 (95) 88 Room Air Lab Results: Results Past 24 Hours Test 02/23/17 19:30 Range/Units
[2017-02-24] MEDS: ACETAMINOPHEN 325 MG TAB PO PRN ×2 (14:47→20:23)
[2017-02-24 15:13] VITALS: BP 124/74; PULSE 90; TEMP 36.8; O2SAT 97
[2017-02-24] MEDS: ASPIRIN 81 MG ECTAB PO SCH (20:17)
[2017-02-24] MEDS: ATORVASTATIN 40 MG TAB PO SCH (20:17)
[2017-02-24] MEDS: OLANZAPINE 5 MG TAB PO SCH (20:18)
[2017-02-24] MEDS: CHOLECALCIFEROL 1000 INTER.UNIT TAB PO SCH (20:18)
[2017-02-24] MEDS: LOSARTAN POTASSIUM 50 MG TAB PO SCH (20:19)
[2017-02-24 23:00] VITALS: BP 122/71; PULSE 76; TEMP 36.4; O2SAT 96
[2017-02-25] MEDS: ACETAMINOPHEN 325 MG TAB PO PRN ×5 (00:36→18:03)
[2017-02-25 07:15] VITALS: BP 111/64; PULSE 81; TEMP 36.7; O2SAT 98
[2017-02-25 07:38] LABS: HEMATOCRIT 23.5 % (42-52); MEAN CELL VOLUME 81.9 fL (80-100); MEAN CORPUSCULAR HEMOGLOBIN 26.8 pg (25-34); MEAN CORPUSCULAR HGB CONC 32.8 g/dl (32-36); MEAN PLATELET VOLUME 8.7 fL (7.4-10.4); PLATELET COUNT 305 K/uL (130-400); RED BLOOD COUNT 2.87 M/uL (4.7-6.1)
[2017-02-25 08:09] LABS: BUN/CREATININE RATIO 13.8 (10-20); CREATININE 0.61 mg/dl (0.60-1.40); POTASSIUM 3.8 mmol/L (3.5-5.1)
[2017-02-25] MEDS: IPRATROPIUM BROMIDE/ALBUTEROL respimat INH INH SCH ×4 (08:22→19:57)
[2017-02-25] MEDS: BUDESONIDE/FORMOTEROL FUMARATE 160/4.5 60 PUFFS/INHALER INH SCH ×2 (08:22→19:57)
[2017-02-25] MEDS: BACLOFEN 10 MG TAB PO SCH ×3 (08:25→19:59)
[2017-02-25] MEDS: BOOST VANILLA PO SCH ×6 (08:25→16:59)
[2017-02-25] MEDS: AMLODIPINE BESYLATE 5 MG TAB PO SCH (08:26)
[2017-02-25] MEDS: METOPROLOL SUCC 25MG EXT REL TAB PO SCH (08:26)
[2017-02-25] MEDS: PANTOprazole SOD 40 MG TAB PO SCH (08:26)
[2017-02-25 08:40] LABS: CALCIUM 8.5 mg/dl (8.5-10.1)
--- NOTE | 2017-02-25 09:51 | Progress Note ---
Internal Med Progress Note Date of Service: Feb 25, 2017. Provider Documentation: SUBJECTIVE : Patient had a much better night yesterday, though still couldn't get much sleep. No more fever spikes around 48 hours. Denies any complaints and tired of being in the hospital and wants to be discharged. Increased zyprexa to 5 mg yesterday night, which did help. OBJECTIVE: Vital Signs-as noted below Exam: General Appearance: Moderately built and nourished, no apparent distress, AAOX3 Head: normocephalic, Atraumatic Eyes: No icterus Neck: supple Respiratory/Chest: Normal breath sounds, CTA Cardiovascular: S1, S2, No murmur Abdomen/GI:Soft, Non tender, Bowel sounds present Extremities/Musculoskelatal: No edema Neurologic/Psych:AAOX3, grossly no focal neurological deficits Lab data as noted below. ASSESSMENT & PLAN: ASSESSMENT & PLAN: Patient is a 76 yr old male with PMH of COPD, Chronic respiratory failure, Sick Sinus Syndrome s/p Pacemaker placement, PE off coumadin, other problems noted below presenting with recurrence of fever with altered mental status, recently discharged on 02/16/17 for fever/AMS. PERSISTENT FEVER OF UNKNOWN ORIGIN : Patient was discharged from hospital on 02/16/17 for fever/ AMS, no clear source of infection was identified, was discharged on Levofloxacin x 7 days due to prior hx of recurrent pnuemonias , possible mild pulmonary infection component just for empiric treatment. Possibility of viral infection was considered as no source of bacterial infection was identified. Came back next day for persistent fever and altered mental status- increased confusion/disorientation. -Empirically received IV Zoysn and Doxycycline x Days 6. Discontinued on 02/22/17 as no infectious source suspected per d/w with ID. -Work up- CXR- no pneumonia, CT head - once with and once without contrast- no acute ab except right mastoid effusion, but no localized signs of mastoiditis, CT abd/pelvis- no acute infectious or inflammatory component noted, UA - negative for UTI, Urine cx - no significant growth, ESR - 14, Procalcitonin- 0.29 (normal). Lymes - negative, Anti phagocytophilium antibodies . Infectious work up during last admission was negative as well. -Non infectious work up this admission - ZACH, Anti proteinese, ANCA, Anti Myeloperoxidase antibodies, - came back negative, ESR- 14 PLAN: As no infectious source identified so far, non infectious sources- autoimmune/vasculitic source considered. Follow up tests as mentioned above came back negative also. Discussed with neurology, less likely there is meningeal source and patient is AAOX3 except agitative episodes at night time, so would avoid any invasive testing like LP. Neurology signed off. Discussed with family/Dr Maddox at length - no signs of sepsis/no infectious source identified, so though continues to have fever spikes, OK to discharge to placement while need to continue with close monitoring outpatient with follow ups with PCP/ID. Would not give any antibiotics. Patient does tend to get more agitated overnight while in the hospital EPISODIC CONFUSION - on and off On and off gets agitated, confused, especially at night. During day time does well. Per family, for past 6 months - has had some issues with cognitive impairment, but for past few weeks since fever, worsening and different in presentation. -May be vascular dementia vs cognitive impairment at baseline and gets delirious due to fever spikes ? . Neurology has similar opinion. Another possibility is withdrawal from nursing home medications ?- had been on percocet x 30 years, which was being tapered and this admission, was taken off Fentanyl, Percocet, Marinol . Has not complained about pain at all throughout hospitalization and been off these medications since this admission, so would avoid it. -Held percocet, Marinol, Fentanyl patch, resumed baclofen but reduced it to 10 mg TID from 20 mg TID, resumed Ativan PRN to prevent withdrawals, but cautious use. -Would give Melatonin q HS to help with delirium at night, but not available on formulary- family will bring it--> will try it tonight -Started zyprexa 2.5 mg on 6/2 night, but didnt help, increased it to 5 mg yesterday, which helped. Continue with zyprexa 5 mg daily -Work up- EEG- associated potentially epileptogenic patterns, consistent with encephalopathy ; CT head with and without contrast- done twice- no acute ab except right mastoid effusion -Discussed with neurology - No indication of LP at this point as patient improving and doubt there is a meningeal source. Would try to avoid more medications if possible. COPD CHRONIC HYPOXIC RESPIRATORY FAILURE -Had some wheezing on and off, CXR was repeated- Emphysema and no new findings. 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 Gave permission to go down to the healing garden with daughter. Discussed with family/Dr Maddox/Dr Lima at length - no signs of sepsis/no infectious source identified, so though continues to have fever spikes, OK to discharge to placement while need to continue with close monitoring outpatient with follow ups with PCP/ID as patient does tend to get more agitated overnight while in the hospital. Family agreeable with discharge plan. OK to discharge to rehab tomorrow if bed available. Vital Signs: Date Time Temp Pulse Resp B/P (MAP) Pulse Ox O2 Delivery O2 Flow Rate FiO2 02/25/17 07:15 36.7 81 18 111/64 (80) 98 Nasal Cannula 3.0 02/25/17 00:50 Room Air 02/24/17 23:00 36.4 76 20 122/71 (88) 96 Nasal Cannula 2.0 02/24/17 16:00 Room Air 02/24/17 15:13 36.8 90 18 124/74 (91) 97 Room Air 02/24/17 11:45 36.6 88 18 128/74 (92) 95 Room Air Lab Results: Results Past 24 Hours Test 02/25/17 07:10 Range/Units White Blood Count 3.30 4.8-10.8 K/uL Red Blood Count 2.87 4.7-6.1 M/uL Hemoglobin 7.7 14.0-18.0 g/dL Hematocrit 23.5 42-52 % Mean Corpuscular Volume 81.9 80-100 fL Mean Corpuscular Hemoglobin 26.8 25-34 pg Mean Corpuscular Hemoglobin Concent 32.8 32-36 g/dl RDW Standard Deviation 47.7 36.4-46.3 fL RDW Coefficient of Variation 15.9 11.5-14.5 % Platelet Count 305 130-400 K/uL Mean Platelet Volume 8.7 7.4-10.4 fL Sodium Level 135 136-145 mmol/L Potassium Level 3.8 3.5-5.1 mmol/L Chloride Level 103 98-107 mmol/L Carbon Dioxide Level 25 21-32 mmol/L Anion Gap 7.0 3-11 mmol/L Blood Urea Nitrogen 8 7-18 mg/dl Creatinine 0.61 0.60-1.40 mg/dl Est Creatinine Clear Calc Drug Dose 108.7 ml/min Estimated GFR () 111.6 Estimated GFR (Non- 96.3 BUN/Creatinine Ratio 13.8 10-20 Random Glucose 94 70-99 mg/dl Calcium Level 8.5 8.5-10.1 mg/dl
[2017-02-25] MEDS ORDERED: NURSING VERBAL MED ORDER ONE (11:15)
[2017-02-25 14:35] LABS: BENZODIAZEPINE, URINE NEG (NEG); COCAINE,URINE NEG (NEG); PHENCYCLIDINE, URINE NEG (NEG)
[2017-02-25 15:00] VITALS: BP 98/58; PULSE 73; TEMP 36.7; O2SAT 98
[2017-02-25] MEDS: LOSARTAN POTASSIUM 50 MG TAB PO SCH (19:58)
[2017-02-25] MEDS: OLANZAPINE 5 MG TAB PO SCH (19:59)
[2017-02-25] MEDS: CHOLECALCIFEROL 1000 INTER.UNIT TAB PO SCH (19:59)
[2017-02-25] MEDS: ASPIRIN 81 MG ECTAB PO SCH (19:59)
[2017-02-25] MEDS: ATORVASTATIN 40 MG TAB PO SCH (19:59)
[2017-02-25] MEDS ORDERED: IBUPROFEN 200 MG TAB PO ONE (20:30)
[2017-02-25] MEDS ORDERED: MELATONIN 5 MG TAB PO SCH (21:00)
[2017-02-25] MEDS: LORAZEPAM 0.5 MG TAB PO PRN (22:47)
[2017-02-25 23:00] VITALS: BP 129/70; PULSE 86; TEMP 36.4; O2SAT 96
[2017-02-26] MEDS: ACETAMINOPHEN 325 MG TAB PO PRN ×2 (05:38→12:08)
[2017-02-26 07:39] LABS: HEMATOCRIT 26.6 % (42-52); MEAN CELL VOLUME 81.1 fL (80-100); MEAN CORPUSCULAR HEMOGLOBIN 25.3 pg (25-34); MEAN CORPUSCULAR HGB CONC 31.2 g/dl (32-36); MEAN PLATELET VOLUME 8.6 fL (7.4-10.4); PLATELET COUNT 332 K/uL (130-400); RED BLOOD COUNT 3.28 M/uL (4.7-6.1); WHITE BLOOD COUNT 3.01 K/uL (4.8-10.8)
[2017-02-26 07:45] VITALS: BP 108/58; PULSE 63; TEMP 36.8; O2SAT 100
[2017-02-26] MEDS: BOOST VANILLA PO SCH ×6 (08:12→16:00)
[2017-02-26] MEDS: IPRATROPIUM BROMIDE/ALBUTEROL respimat INH INH SCH ×2 (08:12→14:08)
[2017-02-26] MEDS: BUDESONIDE/FORMOTEROL FUMARATE 160/4.5 60 PUFFS/INHALER INH SCH (08:13)
[2017-02-26] MEDS: BACLOFEN 10 MG TAB PO SCH ×2 (08:13→14:08)
[2017-02-26] MEDS: METOPROLOL SUCC 25MG EXT REL TAB PO SCH (08:14)
[2017-02-26] MEDS: AMLODIPINE BESYLATE 5 MG TAB PO SCH (08:14)
[2017-02-26] MEDS: PANTOprazole SOD 40 MG TAB PO SCH (08:14)
[2017-02-26 09:40] VITALS: O2SAT 96
--- NOTE | 2017-02-26 09:55 | Progress Note ---
Internal Med Progress Note Date of Service: Feb 26, 2017. Provider Documentation: SUBJECTIVE : Patient is doing much better today. No more fever spikes since 02/23/17. Had a better night and rested well. Received Melatonin, Zyprexa, Ambien and Ativan though. Denies any complaints and tired of being in the hospital and wants to be discharged. OBJECTIVE: Vital Signs-as noted below Exam: General Appearance: Moderately built and nourished, no apparent distress, AAOX3 Head: Normocephalic, Atraumatic Eyes: No icterus Neck: supple Respiratory/Chest: Normal breath sounds, CTA Cardiovascular: S1, S2, No murmur Abdomen/GI:Soft, Non tender, Bowel sounds present Extremities/Musculoskelatal: No edema Neurologic/Psych:AAOX3, grossly no focal neurological deficits Lab data as noted below. ASSESSMENT & PLAN: ASSESSMENT & PLAN: Patient is a 76 yr old male with PMH of COPD, Chronic respiratory failure, Sick Sinus Syndrome s/p Pacemaker placement, PE off coumadin, other problems noted below presenting with recurrence of fever with altered mental status, recently discharged on 02/16/17 for fever/AMS. PERSISTENT FEVER OF UNKNOWN ORIGIN : Resolved Patient was discharged from hospital on 02/16/17 for fever/ AMS, no clear source of infection was identified, was discharged on Levofloxacin x 7 days due to prior hx of recurrent pnuemonias , possible mild pulmonary infection component just for empiric treatment. Possibility of viral infection was considered as no source of bacterial infection was identified. Came back next day for persistent fever and altered mental status- increased confusion/disorientation. As entire work up negative during last and this admission, possibly fever spikes could be secondary to Narcotic Withdrawal. -Empirically received IV Zoysn and Doxycycline x Days 6. Discontinued on 02/22/17 as no infectious source suspected per d/w with ID. -Work up- CXR- no pneumonia, CT head - once with and once without contrast- no acute ab except right mastoid effusion, but no localized signs of mastoiditis, CT abd/pelvis- no acute infectious or inflammatory component noted, UA - negative for UTI, Urine cx - no significant growth, ESR - 14, Procalcitonin- 0.29 (normal). Lymes - negative, Anti phagocytophilium antibodies . Infectious work up during last admission was negative as well. Discussed with neurology, less likely there is meningeal source and patient is AAOX3 except agitative episodes at night time, so would avoid any invasive testing like LP. -Non infectious work up this admission - ZACH, Anti proteinese, ANCA, Anti Myeloperoxidase antibodies, - came back negative, ESR- 14 INTERMITTENT AGITATION/CONFUSION - Improved On and off gets agitated, confused, especially at night. During day time, restless, agitated and in between is AAOX3. Per family, for past 6 months - has had some issues with cognitive impairment, but for past few weeks since fever, worsening and different in presentation. -May be vascular dementia vs cognitive impairment at baseline and got delirious due to fever spikes ?. But even without fever spikes, continued to have intermittent agitative episodes. -Etiology considered: Possibly secondary to narcotic withdrawal. - Off Fentanyl, Percocet, Marinol. Baclofen was reduced to 10 mg TID from 20 mg TID on admission. Ativan PRN was continued to prevent withdrawal. - Has not been able to get good sleep for at least 2 weeks now---> received melatonin, zyprexa 5 mg, ambien and ativan yesterday which helped him sleep well. -Work up- EEG- associated potentially epileptogenic patterns, consistent with encephalopathy ; CT head with and without contrast- done twice- no acute ab except right mastoid effusion -Per neurology- No indication of LP at this point as patient improving and doubt there is a meningeal source. Would try to avoid more medications if possible. PROBABLE NARCOTIC WITHDRAWAL Was on Percocet QID for > 30 years, was tapered to once a day by PCP as was started on Fentanyl prior to last admission--> started having fever spikes, confusion, agitation symptoms. Second admission, was taken off percocet, agitation worsened. -Likely above symptoms - intermittent fever spikes with no infectious/non infectious source identified, agitation, increased irritability, unable to sleep at night but AAOX3 in between these episodes, points towards the possibility of narcotic withdrawal. -Off these medications for around 2 weeks now. Has not complained of pain throughout hospital course, so would avoid these medication now and in future -Continue with tylenol PRN. Cautious about re starting strong pain medications in future. -Urine toxicology screen- Marijuana +ve COPD CHRONIC HYPOXIC RESPIRATORY FAILURE -Had some wheezing on and off, CXR was repeated- Emphysema and no new findings. 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 Plan is for [facility] and if not would want to go home with PT/OT Discussed with patient's daughter by bedside. Agreeable with discharge plan Vital Signs: Date Time Temp Pulse Resp B/P (MAP) Pulse Ox O2 Delivery O2 Flow Rate FiO2 02/26/17 08:00 Nasal Cannula 3.0 02/26/17 07:45 36.8 63 18 108/58 (75) 100 Nasal Cannula 3.0 02/26/17 00:00 Room Air 02/25/17 23:00 36.4 86 19 129/70 (89) 96 Room Air 02/25/17 20:00 Room Air 02/25/17 16:15 Room Air 02/25/17 15:00 36.7 73 18 98/58 (71) 98 Room Air Lab Results: Results Past 24 Hours Test 02/25/17 13:59 02/26/17 07:23 Range/Units Urine Opiates Screen NEG NEG Urine Methadone, Qualitative NEG NEG Urine Barbiturates NEG NEG Urine Phencyclidine (PCP) Level NEG NEG Ur Amphetamine/Methamphetamine NEG NEG MDMA (Ecstasy) Screen NEG NEG Urine Benzodiazepines Screen NEG NEG Urine Cocaine Metabolite NEG NEG Urine Marijuana (THC) POS NEG White Blood Count 3.01 4.8-10.8 K/uL Red Blood Count 3.28 4.7-6.1 M/uL Hemoglobin 8.3 14.0-18.0 g/dL Hematocrit 26.6 42-52 % Mean Corpuscular Volume 81.1 80-100 fL Mean Corpuscular Hemoglobin 25.3 25-34 pg Mean Corpuscular Hemoglobin Concent 31.2 32-36 g/dl RDW Standard Deviation 47.3 36.4-46.3 fL RDW Coefficient of Variation 15.8 11.5-14.5 % Platelet Count 332 130-400 K/uL Mean Platelet Volume 8.6 7.4-10.4 fL
[2017-02-26] MEDS ORDERED: BACL1TAB PO (09:58)
[2017-02-26] MEDS ORDERED: IPRA1AER2 INH (09:58)
[2017-02-26] MEDS ORDERED: ZYP5 PO (09:58)
--- NOTE | 2017-02-26 10:01 | Discharge Instructions ---
Discharge Instructions Date of Service Feb 26, 2017. Admission Reason for Admission: FEVER Discharge Discharge Diagnosis / Problem: 1. Probable narcotic withdrawal 2 . Fever 3. Confusion/Agitation Discharge Goals Goal(s): Decrease discomfort, Improve function Activity Recommendations Activity Limitations: resume your previous activity (PT/OT recommended) . Instructions / Follow-Up Instructions / Follow-Up MEDICATION CHANGES: 1. Discontinued Percocet, Fentanyl, Marinol 2. Baclofen reduced to 10 mg TID from 20 mg TID 3. New medication; Melatonin 10 mg q bedtime (over the counter) 4. New medication; Zyprexa 5 mg q bedtime. Eventually will need to take it off if you are doing better. 5. Try to avoid the use of Ativan if possible---> only if needed at bedtime. Avoid it during day time. 6. Discontinued Ambien as already on Melatonin and zyprexa and occasionally uses Ativan as well. Try to avoid giving PRN medications at night as already on scheduled medications. FOLLOW UP 1. Follow up with PCP in 1 week Current Hospital Diet Patient's current hospital diet: AHA Diet (Heart Healthy) Discharge Diet Recommended Diet: AHA Diet (Heart Healthy), Low Sodium Diet (2gm Na) Pending Studies Studies pending at discharge: no Medical Emergencies . Who to Call and When: Medical Emergencies: If at any time you feel your situation is an emergency, please call 911 immediately. . Non-Emergent Contact Non-Emergency issues call your: Primary Care Provider Call Non-Emergent contact if: temperature is above 101.5 . . "Provider Documentation" section prepared by Rhonda Devi. . VTE Core Measure Inpt VTE Proph given/why not?: SCD's
--- NOTE | 2017-02-26 14:26 | Infectious Disease Progress Nt ---
Progress Note Date of Service Feb 26, 2017. Subjective Pt evaluation today including: conversation w/ patient, physical exam, chart review, lab review, review of studies, conversation w/ transportation consultant, review of inpatient medication list Patient is feeling better. Has had several days without fever. No new complaints. Anticipating discharge. All Other Systems: Reviewed and Negative Medications Current Inpatient Medications Medications (Trade) Dose Ordered Sig/Andrae Route Start Time Stop Time Status Last Admin Dose Admin Amlodipine Besylate (Norvasc Tab) 10 mg QAM PO 02/18/17 09:00 03/20/17 08:59 02/26/17 08:14 10 MG Aspirin (Ecotrin Tab) 81 mg QPM PO 02/18/17 21:00 03/20/17 20:59 02/25/17 19:59 81 MG Atorvastatin Calcium (Lipitor Tab) 40 mg HS PO 02/18/17 21:00 03/20/17 20:59 02/25/17 19:59 40 MG Budesonide/ Formoterol Fumarate (Symbicort 160/ 4.5 Inh) 2 puffs BID INH 02/18/17 09:00 03/20/17 08:59 02/26/17 08:13 2 PUFFS Cholecalciferol (Vitamin D Tab) 1,000 inter.unit QPM PO 02/18/17 21:00 03/20/17 20:59 02/25/17 19:59 1,000 INTER.UNIT Hydralazine HCl (Apresoline Tab) 25 mg TID PO 02/18/17 09:00 03/20/17 08:59 02/26/17 14:08 25 MG Albuterol/ Ipratropium (Combivent Respimat Inh) 2 puffs QID INH 02/18/17 09:00 03/20/17 08:59 02/26/17 14:08 2 PUFFS Losartan Potassium (coZAAR TAB) 100 mg QPM PO 02/18/17 21:00 03/20/17 20:59 02/25/17 19:58 100 MG Metoprolol Succinate (Toprol Xl Tab) 25 mg DAILY PO 02/18/17 09:00 03/20/17 08:59 02/25/17 08:26 25 MG Pantoprazole Sodium (Protonix Tab) 40 mg DAILY PO 02/18/17 09:00 03/20/17 08:59 02/26/17 08:14 40 MG Acetaminophen (Tylenol Tab) 650 mg Q4H PRN PO 02/18/17 01:00 03/20/17 00:59 02/26/17 12:08 650 MG Enteral Nutritional Formula (Boost) 1 can 3XDQ4 PO 02/18/17 16:00 03/20/17 15:59 02/26/17 12:08 1 CAN Lorazepam (Ativan Tab) 0.5 mg TID PRN PO 02/19/17 11:00 03/21/17 10:59 02/25/17 22:47 0.5 MG Zolpidem Tartrate (Ambien Tab) 10 mg HS PRN PO 02/19/17 11:00 03/21/17 10:59 02/25/17 21:22 10 MG Baclofen (Lioresal Tab) 10 mg TID PO 02/19/17 14:00 03/21/17 13:59 02/26/17 14:08 10 MG Albuterol/ Ipratropium (Duoneb) 3 ml Q2H PRN INH 02/23/17 04:15 03/25/17 04:14 02/23/17 04:18 3 ML Olanzapine (Zyprexa Tab) 5 mg HS PO 02/24/17 21:00 03/25/17 20:59 02/25/17 19:59 5 MG Melatonin (Melatonin) 10 mg HS PO 02/25/17 21:00 03/27/17 20:59 02/25/17 20:00 10 MG Objective Vital Signs Date Time Temp Pulse Resp B/P (MAP) Pulse Ox O2 Delivery O2 Flow Rate FiO2 02/26/17 09:40 96 02/26/17 08:00 Nasal Cannula 3.0 02/26/17 07:45 36.8 63 18 108/58 (75) 100 Nasal Cannula 3.0 02/26/17 00:00 Room Air 02/25/17 23:00 36.4 86 19 129/70 (89) 96 Room Air 02/25/17 20:00 Room Air 02/25/17 16:15 Room Air 02/25/17 15:00 36.7 73 18 98/58 (71) 98 Room Air Physical Exam General Appearance: WD/WN, no apparent distress Eyes: normal inspection, sclerae normal ENT: normal ENT inspection, pharynx normal Neck: supple, no adenopathy, trachea midline Respiratory/Chest: lungs clear, normal breath sounds, no respiratory distress Cardiovascular: regular rate, rhythm, no gallop, no murmur Abdomen: normal bowel sounds, non tender, soft, no organomegaly Extremities: non-tender, no calf tenderness Neurologic/Psychiatric: alert, oriented x 3 Skin: normal color, warm/dry, no rash Lymphatic: no adenopathy Laboratory Results Last 24 Hours Test 02/26/17 07:23 White Blood Count 3.01 K/uL Red Blood Count 3.28 M/uL Hemoglobin 8.3 g/dL Hematocrit 26.6 % Mean Corpuscular Volume 81.1 fL Mean Corpuscular Hemoglobin 25.3 pg Mean Corpuscular Hemoglobin Concent 31.2 g/dl RDW Standard Deviation 47.3 fL RDW Coefficient of Variation 15.8 % Platelet Count 332 K/uL Mean Platelet Volume 8.6 fL Assessment and Plan Fever without obvious source or localizing symptoms, with only right mastoid effusion being found on CT scanning. Mastoiditis seems unlikely cause of his current scenario. He appears improved off antibiotics, and see no obvious contraindication from ID standpoint to discharge. Will discuss.
[2017-02-26 15:38] VITALS: BP 96/58; PULSE 91; TEMP 36.4; O2SAT 96
[2017-02-26] MEDS: LORAZEPAM 0.5 MG TAB PO PRN (16:04)
[2017-02-26] MEDS ORDERED: LORA-741 PO (16:09)
[2017-02-26 16:10] VITALS: BP 96/58; PULSE 91; TEMP 36.4; O2SAT 96
--- NOTE | 2017-02-26 16:18 | Discharge Summary ---
Discharge Summary Date of Service Feb 26, 2017. Discharge Summary Admission Date: February 18, 2017 at 00:51 Discharge Date: Feb 26, 2017 Discharge Disposition: Rehab ([facility]) Principal Diagnosis: 1. Fever of unknown origin, possibly secondary to narcotic withdrawal 2. Intermittent agitative/confusion episodes, possibly secondary to narcotic withdrawal Secondary Diagnoses/Problems: 1. Chronic hypoxic respiratory failure (on home oxygen) 2. COPD 3. Chronic hyponatremia 3. Hx of SSS S/P Pacemaker 4. Hx of AAA/PAD S/P Surgery 5. Hx of Lung/Colon carcinoma 6. HTN 7. Chronic anemia 8. Hx of zenkers diverticulum 9. Physical deconditioning Procedures: CT head CT chest CT abd/pelvis CXR IV antibiotics- Zosyn/Doxycycline x 6 days Consultations: ID Neurology Pending Studies/Follow-Up: . Instructions / Follow-Up Instructions / Follow-Up MEDICATION CHANGES: 1. Discontinued Percocet, Fentanyl, Marinol. Would recommend starting on Tylenol PRN for pain 2. Baclofen reduced to 10 mg TID from 20 mg TID 3. New medication; Melatonin 10 mg q bedtime (over the counter) 4. New medication; Zyprexa 5 mg q bedtime. Eventually will need to take it off if you are doing better. 5. Try to avoid the use of Ativan if possible---> only if needed at bedtime. Avoid it during day time. 6. Discontinued Ambien as already on Melatonin and zyprexa and occasionally uses Ativan as well. Try to avoid giving PRN medications at night as already on scheduled medications. FOLLOW UP 1. Follow up with PCP in 1 week Medication Reconciliation New Medications: Olanzapine (Olanzapine) 5 Mg Tab 5 MG PO HS, #10 TAB Changed Medications: Baclofen (Lioresal) 10 Mg Tab 10 MG PO TID, #30 TAB (Changed from: 20 MG) Ipratropium-Albuterol (Combivent Respimat) 1 Aer Aer 2 PUFFS INH QID PRN for sob/wheezing for 30 Days (Medication details modified) Continued Medications: Albuterol (Ventolin Hfa) 60 Puffs/5400 Mcg Aers 2 PUFFS INH QID PRN for Wheezing Amlodipine (Norvasc) 10 Mg Tab 10 MG PO QAM, TAB Amoxicillin & Pot Clavulanate (Augmentin 875-125 mg) 1 Tab Tab 1 TAB PO BID PRN for RESCUE KIT for 10 Days Aspirin (Aspirin Chewable) 81 Mg Chew 81 MG PO QPM, TAB Atorvastatin (Lipitor) 40 Mg Tab 40 MG PO HS, TAB Budesonide/Formoterol Fumarate (Symbicort 160/4.5 Inhaler ) Aero 2 PUFFS INH BID, INHALER Cholecalciferol (Vitamin D) 1,000 Unit Tab 2 TAB PO QPM Cyclobenzaprine Hcl (Flexeril) 10 Mg Tab 1 TAB PO TID PRN for Muscle Spasms for 30 Days, #90 TAB Hydralazine Hcl (Apresoline) 50 Mg Tab 25 MG PO TID, TAB Lorazepam (Ativan) 0.5 Mg Tab 0.5 MG PO TID PRN for Anxiety, #20 TAB (This prescription has been renewed) Losartan Potassium (Cozaar) 100 Mg Tab 100 MG PO QPM, TAB Metoprolol Succinate (Metoprolol Succinate ER) 25 Mg Tabcr 25 MG PO DAILY Multiple Vitamins W/ Minerals (Centrum) 1 Chw Chw 1 CHW PO QPM Oxygen (Oxygen) Gas 3 LITERS NA CONTINOUS Pantoprazole (Protonix) 40 Mg Tab 40 MG PO DAILY, TAB Prednisone Tab (Prednisone) 10 Mg Tab 10 MG PO UD PRN for RESCUE KIT 4 TABS X 4 DAYS 3 TABS X 4 DAYS 2 TABS X 4 DAYS 1 TABS X 4 DAYS Senna/Docusate Sod (Senokot S) 1 Tab Tab 1 TAB PO QAM PRN for Constipation, TAB Discontinued Medications: Dronabinol (Marinol) 5 Mg Cap 5 MG PO BIDM, #60 Fentanyl (Fentanyl) 25 Mcg Tdsy 25 MCG TOP [id number] Levofloxacin (Levofloxacin) 750 Mg Tab 750 MG PO DAILY@11 for 5 Days, #5 TAB Ondansetron Hcl (Zofran) 4 Mg Tab 4 MG PO Q6 PRN for Nausea Oxycodone/Acetaminophen 10MG/325MG (Percocet 10MG/325MG) Tab 1 TAB PO Q6 PRN for Pain Zolpidem Tartrate (Ambien) 10 Mg Tab 1 TAB PO HS PRN for Insomnia for 30 Days, #30 TAB 5 Refills Admission Information HPI (per Admitting provider): 76 year old male with history of COPD, Chronic respiratory failure, Sick Sinus Syndrome s/p Pacemaker placement, PE off coumadin, other problems noted below presenting with recurrence of fever with altered mental status. Patient was just discharge from [facility] last 02/16/17 for fever and altered mental status. No clear etiology was determined, patient improved and was discharged on Levaquin PO. Per family, patient was doing fine Sunday afternoon but was unable to sleep that night. Earlier today, patient was noted to have fever of 102, and was progressively getting confused again. He was also noted to have diarrhea and was reporting RUQ pain to family. No headache, nausea/vomiting, cough, chest pain, dyspnea. No other symptoms. At the ER, patient remained afebrile, WBC 3k. CT head showed right mastoid effusion, CXR no pneumonia, CT abd/pelvis possible diarrheal illness. On exam, patient's family members at the bedside, patient was alert, oriented to person and place, occasionally goes off tangent, seems restless but not in distress. States he feels tired otherwise no other active symptoms. Physical Exam (per Admitting): General Appearance: no apparent distress, + pertinent finding (speaks in sentences, no effort, no accessory muscle use) Head: normocephalic, atraumatic Eyes: normal inspection, PERRL, EOMI, sclerae normal ENT: normal ENT inspection, hearing grossly normal, pharynx normal Neck: supple, no adenopathy, thyroid normal, no JVD, trachea midline Respiratory/Chest: chest non-tender, lungs clear, normal breath sounds, no respiratory distress, no accessory muscle use Cardiovascular: regular rate, rhythm, no edema, no JVD, no murmur, normal peripheral pulses Abdomen/GI: normal bowel sounds, non tender, soft, no organomegaly Back: normal inspection, no CVA tenderness Extremities/Musculoskelatal: normal inspection, no calf tenderness, no pedal edema, normal range of motion Neurologic/Psych: engineering documentation specialist II-XII nml as tested, no motor/sensory deficits, alert , normal reflexes, + pertinent finding (oriented x 2) Skin: normal color, warm/dry, no rash Lymphatic: no adenopathy Hospital Course ASSESSMENT & PLAN: Patient is a 76 yr old male with PMH of COPD, Chronic respiratory failure, Sick Sinus Syndrome s/p Pacemaker placement, PE off coumadin, other problems noted below presenting with recurrence of fever with altered mental status, recently discharged on 02/16/17 for fever/AMS. FEVER OF UNKNOWN ORIGIN : Resolved Patient was discharged from hospital on 02/16/17 for fever/ AMS, no clear source of infection was identified, was discharged on Levofloxacin x 7 days due to prior hx of recurrent pnuemonias , possible mild pulmonary infection component just for empiric treatment. Possibility of viral infection was considered as no source of bacterial infection was identified. Came back next day for persistent fever and altered mental status- increased confusion/disorientation. As entire work up negative during last and this admission, possibly fever spikes could be secondary to Narcotic Withdrawal. -Empirically received IV Zoysn and Doxycycline x Days 6. Discontinued on 02/22/17 as no infectious source suspected per d/w with ID. -Work up- CXR- no pneumonia, CT head - once with and once without contrast- no acute ab except right mastoid effusion, but no localized signs of mastoiditis, CT abd/pelvis- no acute infectious or inflammatory component noted, UA - negative for UTI, Urine cx - no significant growth, ESR - 14, Procalcitonin- 0.29 (normal). Lymes - negative, Anti phagocytophilium antibodies . Infectious work up during last admission was negative as well. Discussed with neurology, less likely there is meningeal source and patient is AAOX3 except agitative episodes at night time, so would avoid any invasive testing like LP. -Non infectious work up this admission - ZACH, Anti proteinese, ANCA, Anti Myeloperoxidase antibodies, - came back negative, ESR- 14 INTERMITTENT AGITATION/CONFUSION - Improved On and off gets agitated, confused, especially at night. During day time, restless, agitated and in between is AAOX3. Per family, for past 6 months - has had some issues with cognitive impairment, but for past few weeks since fever, worsening and different in presentation. -May be vascular dementia vs cognitive impairment at baseline and got delirious due to fever spikes ?. But even without fever spikes, continued to have intermittent agitative episodes. -Etiology considered: Possibly secondary to narcotic withdrawal. - Off Fentanyl, Percocet, Marinol. Baclofen was reduced to 10 mg TID from 20 mg TID on admission. Ativan PRN was continued to prevent withdrawal. - Has not been able to get good sleep for at least 2 weeks now---> received melatonin, zyprexa 5 mg, ambien and ativan yesterday which helped him sleep well. -Work up- EEG- associated potentially epileptogenic patterns, consistent with encephalopathy ; CT head with and without contrast- done twice- no acute ab except right mastoid effusion -Per neurology- No indication of LP at this point as patient improving and doubt there is a meningeal source. Would try to avoid more medications if possible. PROBABLE NARCOTIC WITHDRAWAL Was on Percocet QID for > 30 years, was tapered to once a day by PCP as was started on Fentanyl prior to last admission--> started having fever spikes, confusion, agitation symptoms. Second admission, was taken off percocet, agitation worsened. -Likely above symptoms - intermittent fever spikes with no infectious/non infectious source identified, agitation, increased irritability, unable to sleep at night but AAOX3 in between these episodes, points towards the possibility of narcotic withdrawal. -Off these medications for around 2 weeks now. Has not complained of pain throughout hospital course, so would avoid these medication now and in future -Continue with tylenol PRN. Cautious about re starting strong pain medications in future. -Urine toxicology screen- Marijuana +ve COPD CHRONIC HYPOXIC RESPIRATORY FAILURE -Had some wheezing on and off, CXR was repeated- Emphysema and no new findings. 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 Agreeable with discharge plan Total time spent on discharge = 40 minutes This includes examination of the patient, discharge planning, medication reconciliation, and communication with other providers. Discharge Instructions Activity Recommendations Activity Limitations: resume your previous activity (PT/OT recommended) . Instructions / Follow-Up Instructions / Follow-Up MEDICATION CHANGES: 1. Discontinued Percocet, Fentanyl, Marinol 2. Baclofen reduced to 10 mg TID from 20 mg TID 3. New medication; Melatonin 10 mg q bedtime (over the counter) 4. New medication; Zyprexa 5 mg q bedtime. Eventually will need to take it off if you are doing better. 5. Try to avoid the use of Ativan if possible---> only if needed at bedtime. Avoid it during day time. 6. Discontinued Ambien as already on Melatonin and zyprexa and occasionally uses Ativan as well. Try to avoid giving PRN medications at night as already on scheduled medications. FOLLOW UP 1. Follow up with PCP in 1 week Current Hospital Diet Patient's current hospital diet: AHA Diet (Heart Healthy) Discharge Diet Recommended Diet: AHA Diet (Heart Healthy), Low Sodium Diet (2gm Na) Pending Studies Studies pending at discharge: no Medical Emergencies . Who to Call and When: Medical Emergencies: If at any time you feel your situation is an emergency, please call 911 immediately. . Non-Emergent Contact Non-Emergency issues call your: Primary Care Provider Call Non-Emergent contact if: temperature is above 101.5 . . "Provider Documentation" section prepared by Rhonda Devi. . VTE Core Measure Inpt VTE Proph given/why not?: SCD's
[2017-02-27 01:18] LABS: CARBOXY THC TO CREAT RATIO 197 NG/MG; CARBOXY THC UR GC/MS 138 NG/ML (CUTOFF=5); URCREATININE 69.5 MG/DL (>/= 20)
[2017-07-27] MEDS ORDERED: FURO-85 PO (09:56)
[2017-07-27] MEDS ORDERED: RISP-99 PO (09:56)
[2017-07-27] MEDS ORDERED: NCY50 PO (09:56)
[2017-07-27] MEDS ORDERED: ERGO500011 PO (09:56)
[2017-07-27] MEDS ORDERED: PRT40 PO (09:56)
== END 2017-02-26 17:05 | DRG 896 ==
LOC: ENRESERVDT → ENRESERVTM → EDBD 20:35 → C.EDA 20:38 → C.2T 02-18 00:51 → C.MS2W 02-18 10:58
PROVIDERS: ADMIT Internal Medicine; ATTEND Internal Medicine
DX: F11.23 Opioid dependence with withdrawal (principal); G04.81 Other encephalitis and encephalomyelitis; G92 Toxic encephalopathy; J96.11 Chronic respiratory failure with hypoxia; E87.1 Hypo-osmolality and hyponatremia; T36.95XA Adverse effect of unspecified systemic antibiotic, initial encounter; R50.81 Fever presenting with conditions classified elsewhere; R45.1 Restlessness and agitation; R19.7 Diarrhea, unspecified; F01.50 Vascular dementia, unspecified severity, without behavioral disturbance, psychotic disturbance, mood disturbance, and anxiety; J44.9 Chronic obstructive pulmonary disease, unspecified; I10 Essential (primary) hypertension; E78.5 Hyperlipidemia, unspecified; K22.5 Diverticulum of esophagus, acquired; I73.9 Peripheral vascular disease, unspecified; D63.8 Anemia in other chronic diseases classified elsewhere; Z79.899 Other long term (current) drug therapy; Z79.82 Long term (current) use of aspirin; Z99.81 Dependence on supplemental oxygen; Z91.81 History of falling; Z85.038 Personal history of other malignant neoplasm of large intestine; Z85.118 Personal history of other malignant neoplasm of bronchus and lung; Z95.0 Presence of cardiac pacemaker; Z86.711 Personal history of pulmonary embolism; Z86.79 Personal history of other diseases of the circulatory system; Z87.01 Personal history of pneumonia (recurrent); Z87.891 Personal history of nicotine dependence; Z82.49 Family history of ischemic heart disease and other diseases of the circulatory system; Z82.3 Family history of stroke

== ENCOUNTER 2017-06-30 00:22 | Emergency (ER) | payer OTHER ==
[~2017-06-30] VITALS: Ht 182.9 cm; Wt 78.0 kg
[~2017-06-30 00:22] MED LIST changes: -DRON5CAP2 PO; -FNTTP25 TOP; -LVQ750 PO; -ONDA4TAB46 PO; -OXYC-106 PO; -ZOLP10TA PO; +ZYP5 PO
[2017-06-30 00:25] VITALS: TEMP 36.6; Ht 182.9 cm; Wt 78.0 kg
[2017-06-30] MEDS ORDERED: ONDANSETRON INJ 2 MG/ML 2 ML VIAL IV STA (01:09)
[2017-06-30] MEDS ORDERED: MoRPHine SULFATE 4 MG/ML 1 ML CARP\\VIAL IV ONE ×2 (01:15→02:45)
[2017-06-30] MEDS ORDERED: SODIUM CHLORIDE 0.9% 1000ML 1,000 ML IV ONE (01:15)
[2017-06-30] MEDS ORDERED: OPTIRAY 320 IV PRN (01:15)
[2017-06-30] MEDS ORDERED: ACET-1256 PO (01:20)
[2017-06-30] MEDS ORDERED: ALBU18002 INH (01:20)
[2017-06-30] MEDS ORDERED: KETO0.5S22 OPL (01:20)
[2017-06-30] MEDS ORDERED: IPRA1AER2 INH (01:20)
[2017-06-30] MEDS ORDERED: APR25 PO (01:20)
[2017-06-30] MEDS ORDERED: TRAM-10 PO (01:20)
[2017-06-30] MEDS ORDERED: MIRT15TA2 PO (01:20)
[2017-06-30] MEDS ORDERED: ONDA4TAB46 PO (01:20)
[2017-06-30] MEDS ORDERED: RANI300T2 PO (01:20)
[2017-06-30] MEDS ORDERED: DOCU100C31 PO (01:20)
[2017-06-30] MEDS ORDERED: MELATAB2 PO (01:20)
[2017-06-30] MEDS ORDERED: ALUMSUS2 PO (01:20)
[2017-06-30] MEDS ORDERED: DICL-201 PO (01:20)
[2017-06-30 01:34] LABS: BASO % 0.3 %; BASO ABS # 0.04 K/uL (0-0.2); COMPLETE YES; EOS % 0.1 %; HEMATOCRIT 33.1 % (42-52); IG% 0.5 %; LYMPH % 24.5 %; LYMPH ABS # 2.86 K/uL (1.2-3.4); MEAN CELL VOLUME 79.4 fL (80-100); MEAN CORPUSCULAR HEMOGLOBIN 25.4 pg (25-34); MEAN PLATELET VOLUME 9.3 fL (7.4-10.4); MONO % 8.3 %; NEUT % 66.3 %; PLATELET COUNT 436 K/uL (130-400); RED BLOOD COUNT 4.17 M/uL (4.7-6.1); WHITE BLOOD COUNT 11.66 K/uL (4.8-10.8)
[2017-06-30 01:42] LABS: BUN/CREATININE RATIO 21.2 (10-20); CALCIUM 8.7 mg/dl (8.5-10.1); CREATININE 0.73 mg/dl (0.60-1.40); MAGNESIUM 2.2 mg/dl (1.8-2.4); POTASSIUM 4.1 mmol/L (3.5-5.1)
[2017-06-30 01:45] LABS: ALB/GLOB RATIO 0.9 (0.9-2)
[2017-06-30 03:30] LABS: URINE APPEARANCE CLEAR (CLEAR); URINE BILIRUBIN NEG (NEG); URINE COLOR YELLOW; URINE NITRITE NEG (NEG); URINE SPECIFIC GRAVITY 1.006 (1.000-1.030); UROBILINOGEN NEG (NEG); ZZUR CULT IF INDIC CLEAN CATCH NO
[2017-06-30 03:32] LABS: MANUAL MICROSCOPIC REQUIRED? NO; REVIEW REQ? NO
[2017-06-30] MEDS ORDERED: HYDROmorphone INJ 0.5 MG/0.5 ML SYR IV STA (04:11)
[2017-06-30] MEDS ORDERED: OXYC1TAB3 PO (05:14)
[2017-06-30] MEDS ORDERED: ONDANSETRON HOME PACK 4MG OD TAB PO ONE (05:15)
[2017-06-30] MEDS ORDERED: OXYCODONE IR HOME PACK PO ONE (05:15)
[2017-06-30 05:20] VITALS: BP 145/78; PULSE 70; O2SAT 94
--- NOTE | 2017-06-30 06:30 | EMERGENCY ROOM VISIT NOTE ---
ED Visit Note First contact with patient: 00:49 I have personally evaluated and examined this patient. I agree with assessment and plan of Ilya Blanco PA-C. 77 yr old male with midline abdominal pain which is TTP though with normal CT it is unclear cause. Exam not consistent with peritonitis.
--- NOTE | 2017-06-30 09:58 | DIAGNOSTIC IMAGING REPORT ---
ABD/PELVIS IV AND ORAL CONT HISTORY: 77 years-old Male Midline abd pain acute midline abdominal pain. Prior right hemicolectomy with ileocolic anastomosis here COMPARISON: CT abdomen and pelvis 02/17/2017, CT 11/17/2013. TECHNIQUE: Multiple axial CT images of the abdomen and pelvis were obtained following the intravenous administration of 94 mL Optiray 320. Oral contrast also used. A dose lowering technique was used consistent with the principals of JAVIER. FINDINGS: Emphysematous changes with areas of scarring are redemonstrated within the lung bases. There are postsurgical changes with pleural parenchymal scarring of the left lower lobe. Mild bibasilar bronchial wall thickening suggests background bronchitis. Groundglass opacities of the right lung base suggest atelectasis. There is no pneumoperitoneum identified. There is unchanged mild intrahepatic biliary ductal dilation. Cholelithiasis without CT evidence of acute cholecystitis. The common bile duct does not appear to be dilated. The spleen, pancreas and right adrenal gland are unremarkable. 10 x 9 mm indeterminate nodule of the left adrenal gland has decreased in size, previously 1.4 x 1.2 cm. This is again indeterminate however does suggest a benign etiology. Renal calcifications are present bilaterally. No definite renal calculi or hydronephrosis. Indeterminate soft tissue attenuating 1.7 x 1.4 cm exophytic lesion of the inferior pole left kidney is unchanged, from most recent comparison, however appears enlarged from 11/17/2013. Moderate anterior bladder wall thickening with mild surrounding stranding. Prostate is mildly enlarged. Extensive atherosclerotic plaquing of the abdominal aorta with aortobiiliac graft in place which is patent. Graft of the bilateral femoral arteries are also patent. No bulky adenopathy. Contrast within the distal esophagus suggests reflux. Metallic density focus is seen within the proximal gastric body, unchanged. There is no bowel obstruction. Postsurgical changes from prior right hemicolectomy with ileocolic anastomosis. The appendix is likely surgically absent. Mild bilateral gynecomastia. Bones are mildly demineralized. Schmorl's nodes of the L2 and L3 vertebral bodies are noted with anterior compression of L2. Large Schmorl's node at L3 is new from comparison. Well-defined lucent changes of the lower lumbar vertebral bodies are unchanged and likely secondary to degenerative changes. IMPRESSION: 1. Moderate anterior urinary bladder wall thickening with surrounding inflammatory stranding is suspicious for cystitis. Correlate with urinalysis. 2. Prior right hemicolectomy with ileocolic anastomosis. No bowel obstruction or focal bowel wall thickening. 3. Cholelithiasis without CT evidence of acute cholecystitis. Mild nonspecific intrahepatic biliary ductal dilation is again seen without dilation of the common bile duct. 4. Complex exophytic lesion of the inferior pole left kidney, 1.7 cm appears unchanged from comparison, however has increased in size from 11/17/2013. This may reflect a complex cyst, however attention at follow-up recommended. 5. Large Schmorl's node involving the superior endplate L3 is new from comparison study. No significant retropulsion. 6. Additional incidental findings as above. The above report was generated using voice recognition software. It may contain grammatical, syntax or spelling errors. Electronically signed by: Ventura Nieto M.D. 06/30/2017 9:57 AM Dictated Date/Time: 06/30/2017 9:43 AM
--- NOTE | 2017-07-01 04:41 | EMERGENCY ROOM VISIT NOTE ---
History First contact with patient: 00:49 Chief Complaint: ABDOMINAL PAIN Stated Complaint: ABD PAIN Nursing Triage Summary: Pt c/o abdominal pain throughout for one week. Has been to PCP twice. Outpt ultrasound done Sunday. Pt c/o pain 06/03. History of Present Illness The patient is a 77 year old male who presents to the Emergency Room with complaints of anterior abdominal pain for the past week. The patient was initially evaluated by his primary care physician about 7 days ago. He was trying some pain medication but his symptoms persisted. The patient again followed with his primary care physician 2 days ago, and had normal labs and normal ultrasound of the gallbladder. Patient now presents to the ER with 9/10 midline abdominal pain. His discomfort does not seem to improve or worsen with eating or drinking. When he goes from a laying to a sitting position this does exacerbate his pain. The patient has not had fever or chills. No nausea or vomiting. No diarrhea. The patient has a history of extensive abdominal surgery due to AAA repair several years ago. The patient has not had chest pain , chest tightness, shortness of breath, back pain, or lower abdominal pain Review of Systems More than 10 systems were reviewed and otherwise negative with the exception of history of present illness. Past Medical/Surgical History Medical Problems: (1) Aneurysm artery, femoral (2) Cerebrovascular event (3) Chronic anticoagulation (4) Chronic respiratory failure with hypoxia (5) Colon cancer (6) COPD (chronic obstructive pulmonary disease) (7) Encephalopathy (8) H/O: lung cancer (9) HLD (hyperlipidemia) (10) Hypertension (11) Pacemaker (12) Peripheral vascular disease (13) Pulmonary embolus Surgical Problems: (1) H/O hernia repair (2) History of back surgery (3) S/P AAA repair (4) S/P lobectomy of lung (5) S/P partial colectomy (6) S/P tonsillectomy Family History FHx: cancer SISTER FHx: heart disease FATHER SISTER FHx: hypertension FHx: lung disease Stroke MOTHER Social History Smoking Status: Never Smoker Alcohol Use: occasionally Drug Use: none Marital Status: Housing Status: lives with family Occupation Status: retired Current/Historical Medications Scheduled Albuterol Sulfate (Proair Respiclick), 2 PUFFS INH QID Aluminum/Magnesium/Simeth (Maalox Max Susp), 10 ML PO QID Amlodipine (Norvasc), 10 MG PO QAM Aspirin (Aspirin Chewable), 81 MG PO QPM Atorvastatin (Lipitor), 40 MG PO HS Budesonide/Formoterol Fumarate (Symbicort 160/4.5 Inhaler ), 2 PUFFS INH BID Cholecalciferol (Vitamin D), 2,000 UNITS PO QPM Diclofenac (Voltaren), 75 MG PO BID WITH FOOD Docusate Sodium (Docusate Sodium), 100 MG PO BID Home O2 Therapy (Oxygen), 3 LITERS NA CONTINOUS Hydralazine Hcl (Apresoline), 25 MG PO BID Ketorolac Tromethamine (Ophth) (Ketorolac Tromethamine), 1 DROPS OPL TID Losartan Potassium (Cozaar), 100 MG PO QPM Melatonin (Melatonin Maximum Strengt), 10 MG PO HS Metoprolol Succinate (Metoprolol Succinate ER), 25 MG PO DAILY Mirtazapine Soltab (Remeron Soltab), 15 MG PO HS Multiple Vitamins W/ Minerals (Centrum), 1 CHW PO QPM Oxycodone Immediate Rel Tab (Roxicodone Ir), 1-2 TAB PO Q6 Pantoprazole (Protonix), 40 MG PO DAILY Ranitidine Hcl (Zantac), 300 MG PO HS Scheduled PRN Acetaminophen (Tylenol), 500 MG PO Q4H PRN for Pain or Fever Amoxicillin & Pot Clavulanate (Augmentin 875-125 mg), 1 TAB PO BID PRN for RESCUE KIT Cyclobenzaprine Hcl (Flexeril), 1 TAB PO TID PRN for Muscle Spasms Ipratropium-Albuterol (Combivent Respimat), 2 PUFFS INH QID PRN for SOB/Wheezing Ondansetron Hcl (Zofran), 4 MG PO Q6H PRN for Nausea Prednisone Tab (Prednisone), 10 MG PO UD PRN for RESCUE KIT Senna/Docusate Sod (Senokot S), 1 TAB PO QAM PRN for Constipation Tramadol (Ultram), 50 MG PO Q6H PRN for Pain Allergies Coded Allergies: No Known Allergies (Verified , 06/30/17) Physical Exam Vital Signs Date Time Temp Pulse Resp B/P (MAP) Pulse Ox O2 Delivery O2 Flow Rate FiO2 06/30/17 05:20 70 18 145/78 94 06/30/17 04:48 63 18 144/78 93 Room Air 06/30/17 03:45 65 18 149/88 92 Room Air 06/30/17 03:04 65 18 147/65 95 Room Air 06/30/17 01:50 69 18 181/78 96 Room Air 06/30/17 00:25 36.6 76 18 150/80 94 Room Air Physical Exam VITALS: Vitals are noted on the nurse's note and reviewed by myself. Vital signs stable. GENERAL: Well-developed, well-nourished, elderly male who is cooperative and in no acute distress. HEART: Regular rate and rhythm without murmurs gallops or rubs. LUNGS: Clear to auscultation bilaterally without wheezes, rales or rhonchi. No retractions or accessory muscle use. ABDOMEN: Positive normal bowel sounds x 4. Soft with anterior midline tenderness essentially across the existing abdominal surgical scar. No CVA tenderness. No lower abdominal tenderness. MUSCULOSKELETAL: No muscle atrophy, erythema, or edema noted. Full range of motion without joint tenderness in all extremities. Medical Decision & Procedures ER Provider Diagnostic Interpretation: ABD/PELVIS IV AND ORAL CONT HISTORY: 77 years-old Male Midline abd pain acute midline abdominal pain. Prior right hemicolectomy with ileocolic anastomosis here COMPARISON: CT abdomen and pelvis 02/17/2017, CT 11/17/2013. TECHNIQUE: Multiple axial CT images of the abdomen and pelvis were obtained following the intravenous administration of 94 mL Optiray 320. Oral contrast also used. A dose lowering technique was used consistent with the principals of ALARA. FINDINGS: Emphysematous changes with areas of scarring are redemonstrated within the lung bases. There are postsurgical changes with pleural parenchymal scarring of the left lower lobe. Mild bibasilar bronchial wall thickening suggests background bronchitis. Groundglass opacities of the right lung base suggest atelectasis. There is no pneumoperitoneum identified. There is unchanged mild intrahepatic biliary ductal dilation. Cholelithiasis without CT evidence of acute cholecystitis. The common bile duct does not appear to be dilated. The spleen, pancreas and right adrenal gland are unremarkable. 10 x 9 mm indeterminate nodule of the left adrenal gland has decreased in size, previously 1.4 x 1.2 cm. This is again indeterminate however does suggest a benign etiology. Renal calcifications are present bilaterally. No definite renal calculi or hydronephrosis. Indeterminate soft tissue attenuating 1.7 x 1.4 cm exophytic lesion of the inferior pole left kidney is unchanged, from most recent comparison, however appears enlarged from 11/17/2013. Moderate anterior bladder wall thickening with mild surrounding stranding. Prostate is mildly enlarged. Extensive atherosclerotic plaquing of the abdominal aorta with aortobiiliac graft in place which is patent. Graft of the bilateral femoral arteries are also patent. No bulky adenopathy. Contrast within the distal esophagus suggests reflux. Metallic density focus is seen within the proximal gastric body, unchanged. There is no bowel obstruction. Postsurgical changes from prior right hemicolectomy with ileocolic anastomosis. The appendix is likely surgically absent. Mild bilateral gynecomastia. Bones are mildly demineralized. Schmorl's nodes of the L2 and L3 vertebral bodies are noted with anterior compression of L2. Large Schmorl's node at L3 is new from comparison. Well-defined lucent changes of the lower lumbar vertebral bodies are unchanged and likely secondary to degenerative changes. IMPRESSION: 1. Moderate anterior urinary bladder wall thickening with surrounding inflammatory stranding is suspicious for cystitis. Correlate with urinalysis. 2. Prior right hemicolectomy with ileocolic anastomosis. No bowel obstruction or focal bowel wall thickening. 3. Cholelithiasis without CT evidence of acute cholecystitis. Mild nonspecific intrahepatic biliary ductal dilation is again seen without dilation of the common bile duct. 4. Complex exophytic lesion of the inferior pole left kidney, 1.7 cm appears unchanged from comparison, however has increased in size from 11/17/2013. This may reflect a complex cyst, however attention at follow-up recommended. 5. Large Schmorl's node involving the superior endplate L3 is new from comparison study. No significant retropulsion. 6. Additional incidental findings as above. Laboratory Results 06/30/17 00:35 Red Blood Count 4.17, Mean Corpuscular Volume 79.4, Mean Corpuscular Hemoglobin 25.4, Mean Corpuscular Hemoglobin Concent 32.0, Mean Platelet Volume 9.3, Neutrophils (%) (Auto) 66.3, Lymphocytes (%) (Auto) 24.5, Monocytes (%) (Auto) 8.3, Eosinophils (%) (Auto) 0.1, Basophils (%) (Auto) 0.3, Neutrophils # (Auto) 7.72, Lymphocytes # (Auto) 2.86, Monocytes # (Auto) 0.97, Eosinophils # (Auto) 0.01, Basophils # (Auto) 0.04 06/30/17 00:35 Test 06/30/17 00:35 06/30/17 01:27 06/30/17 03:15 White Blood Count 11.66 K/uL (4.8-10.8) Red Blood Count 4.17 M/uL (4.7-6.1) Hemoglobin 10.6 g/dL (14.0-18.0) Hematocrit 33.1 % (42-52) Mean Corpuscular Volume 79.4 fL (80-100) Mean Corpuscular Hemoglobin 25.4 pg (25-34) Mean Corpuscular Hemoglobin Concent 32.0 g/dl (32-36) Platelet Count 436 K/uL (130-400) Mean Platelet Volume 9.3 fL (7.4-10.4) Neutrophils (%) (Auto) 66.3 % Lymphocytes (%) (Auto) 24.5 % Monocytes (%) (Auto) 8.3 % Eosinophils (%) (Auto) 0.1 % Basophils (%) (Auto) 0.3 % Neutrophils # (Auto) 7.72 K/uL (1.4-6.5) Lymphocytes # (Auto) 2.86 K/uL (1.2-3.4) Monocytes # (Auto) 0.97 K/uL (0.11-0.59) Eosinophils # (Auto) 0.01 K/uL (0-0.5) Basophils # (Auto) 0.04 K/uL (0-0.2) RDW Standard Deviation 55.0 fL (36.4-46.3) RDW Coefficient of Variation 19.1 % (11.5-14.5) Immature Granulocyte % (Auto) 0.5 % Immature Granulocyte # (Auto) 0.06 K/uL (0.00-0.02) Anion Gap 8.0 mmol/L (3-11) Est Creatinine Clear Calc Drug Dose 91.6 ml/min Estimated GFR () 103.0 Estimated GFR (Non- 88.8 BUN/Creatinine Ratio 21.2 (10-20) Calcium Level 8.7 mg/dl (8.5-10.1) Magnesium Level 2.2 mg/dl (1.8-2.4) Total Bilirubin 0.3 mg/dl (0.2-1) Aspartate Amino Transf (AST/SGOT) 9 U/L (15-37) Alanine Aminotransferase (ALT/SGPT) 26 U/L (12-78) Alkaline Phosphatase 114 U/L (45-117) Total Protein 6.8 gm/dl (6.4-8.2) Albumin 3.3 gm/dl (3.4-5.0) Globulin 3.5 gm/dl (2.5-4.0) Albumin/Globulin Ratio 0.9 (0.9-2) Lipase 139 U/L (73-393) Bedside Troponin I < 0.030 ng/ml (0-0.045) Urine Color YELLOW Urine Appearance CLEAR (CLEAR) Urine pH 6.0 (4.5-7.5) Urine Specific [place] 1.006 (1.000-1.030) Urine Protein NEG (NEG) Urine Glucose (UA) NEG (NEG) Urine Ketones NEG (NEG) Urine Occult Blood NEG (NEG) Urine Nitrite NEG (NEG) Urine Bilirubin NEG (NEG) Urine Urobilinogen NEG (NEG) Urine Leukocyte Esterase NEG (NEG) Medications Administered Medications (Trade) Dose Ordered Sig/Andrae Route Start Time Stop Time Status Last Admin Dose Admin Sodium Chloride 1,000 ml @ 999 mls/hr Q1H1M ONCE IV 06/30/17 01:15 06/30/17 02:15 DC 06/30/17 01:32 999 MLS/HR Morphine Sulfate (MoRPHine SULFATE INJ) 4 mg NOW ONCE IV 06/30/17 01:15 06/30/17 01:16 DC 06/30/17 01:30 4 MG Ondansetron HCl (Zofran Inj) 4 mg NOW STAT IV 06/30/17 01:09 06/30/17 01:11 DC 06/30/17 01:30 4 MG Morphine Sulfate (MoRPHine SULFATE INJ) 4 mg NOW ONCE IV 06/30/17 02:45 06/30/17 02:46 [place] 06/30/17 02:49 4 MG Hydromorphone HCl (Dilaudid Inj) 0.5 mg NOW STAT IV 06/30/17 04:11 06/30/17 04:12 DC 06/30/17 04:15 0.5 MG Oxycodone HCl (Roxicodone Immediate Rel 5MG Home Pack) 1 homepack UD ONCE PO 06/30/17 05:15 06/30/17 05:16 DC 06/30/17 05:27 1 HOMEPACK Ondansetron HCl (ZOFRAN ODT 4MG Home Pack) 1 homepack UD ONCE PO 06/30/17 05:15 06/30/17 05:16 DC 06/30/17 05:27 1 HOMEPACK ED Course Physical exam and history were performed. Nursing notes, EMR, and Medication List were personally reviewed. Patient appears to have severe anterior abdominal pain for the past week. He has had outpatient blood work and ultrasound that were reportedly negative. I was able to review this and the [employer] system, and these studies did not show obvious acute process. The patient does have tenderness over the anterior abdomen in the distribution of his surgical scar superiorly. He does not exhibit signs of peritonitis. IV access was established and labs were obtained. The patient was hydrated medicated as above. Due to his discomfort and possibility of hernia/angulation I did elect to perform a CT scan with IV and oral contrast. I discussed the case with my attending physician, Dr. Dash, who also independently evaluated the patient and remain closely involved in patient care and decision making. The patient's blood work is as above and was reviewed. He does not have a significantly elevated white blood cell count. He has a mild anemia, however this is improved when compared to records at this facility several months ago. His lipase and transaminases are nondiagnostic. His CT scan is as above and does not show obvious acute etiology of his discomfort. On reevaluation the patient continues to have some superior abdominal wall tenderness. This does worsen with certain positional changes, and could certainly represent a developing hernia or adhesions process. I did discuss with the patient the option of staying in the hospital, however he had a preference for discharge home which seems reasonable. The patient will need close follow-up with his primary care physician, and I recommended that he follow-up with him on Sunday or Sunday after the weekend. I will give him a course of pain medication and instructions to return any time. The patient was pleased with this plan and voiced understanding. The chart was completed utilizing Dragon Speech Voice Recognition Software. Grammatical errors, random word insertions, pronoun errors, and incomplete sentences are an occasional consequence of this system due to software limitations, ambient noise, and hardware issues. Any formal questions or concerns about the content, text, or information contained within the body of this dictation should be directly addressed to the provider for clarification. . Medical Decision Differential diagnosis: Etiologies such as appendicitis, diverticulitis, PUD, biliary pathology, UTI, pancreatitis, obstruction, mesenteric ischemia, aortic pathology, infections, inflammatory bowel disease, renal colic, as well as others were entertained. Impression Primary Impression: Abdominal pain Departure Information Dispostion Home / Self-Care Condition GOOD Prescriptions Oxycodone Immediate Rel Tab (ROXICODONE IR) 5 Mg Tab 1-2 TAB PO Q6 for Pain, #24 TAB Prov: Ilya Blanco PA-C 06/30/17 Forms Call Back Authorization, HOME CARE DOCUMENTATION FORM, IMPORTANT VISIT INFORMATION Patient Instructions My [facility] Additional Instructions You were seen and evaluated today on an emergency basis only. This is not a substitute for, or an effort to provide, complete comprehensive medical care. It is not possible to recognize and treat all injuries or illnesses in a single emergency department visit. For this reason it is recommended that you followup with your primary care physician on Sunday for a recheck of your condition. Let the office know you were seen in the emergency department to help facilitate care. Oxycodone (OxyIR) 5mg: Take ONE or TWO pills every SIX hours for breakthrough pain. Avoid alcohol, operating machinery or dangerous equipment, working on ladders or roofs, DRIVING, or situations where being under the influence may be dangerous. It is recommended to use an [id number] stool softener such as Colace, 100mg twice daily while taking this medication to avoid constipation. Zofran 1 tablet every 6 hrs as needed for nausea. You are welcome to return to the emergency department anytime with new, worsening, or concerning symptoms.
== END 2017-06-30 05:42 | disposition home or self-care (01) ==
LOC: C.EDB 00:23 → C.EDA 05:42
DX: R10.9 Unspecified abdominal pain (principal); Z86.73 Personal history of transient ischemic attack (TIA), and cerebral infarction without residual deficits; Z85.038 Personal history of other malignant neoplasm of large intestine; J44.9 Chronic obstructive pulmonary disease, unspecified; Z85.118 Personal history of other malignant neoplasm of bronchus and lung; I10 Essential (primary) hypertension; Z95.0 Presence of cardiac pacemaker; I73.9 Peripheral vascular disease, unspecified; Z86.711 Personal history of pulmonary embolism; I71.4 Abdominal aortic aneurysm, without rupture; Z80.9 Family history of malignant neoplasm, unspecified; Z82.49 Family history of ischemic heart disease and other diseases of the circulatory system; Z83.6 Family history of other diseases of the respiratory system; Z79.82 Long term (current) use of aspirin; Z99.81 Dependence on supplemental oxygen; Z79.899 Other long term (current) drug therapy

== ENCOUNTER → 2017-08-22 | Outpatient (CLI) | payer OTHER ==
[~2017-08-22] MED LIST changes: +ACET-1256 PO; +ALBU18002 INH; +ALUMSUS2 PO; -BACL1TAB PO; +DOCU100C31 PO; +ERGO500011 PO; +FURO-85 PO; -HYDR-4717 PO; +KETO0.5S22 OPL; -LORA-741 PO; -LOSA100T65 PO; +MELATAB2 PO; +MIRT15TA2 PO; +NCY50 PO; +ONDA4TAB46 PO; -PANT40TA PO; +PRT40 PO; -PRVHFAIN INH; +RANI300T2 PO; +RISP-99 PO; -ZYP5 PO
--- NOTE | 2017-08-22 10:12 | DIAGNOSTIC IMAGING REPORT ---
(CHEST) THORAX WITHOUT CLINICAL HISTORY: 77 years-old Male presenting with J44.9 Chronic obstructive pulmonary [id number] Shortness of breath, respiratory failure, left lower lobectomy. TECHNIQUE: Multidetector CT imaging of the chest was performed without the use of intravenous contrast. IV contrast: None. A dose lowering technique was used consistent with the principles of ALARA (as low as reasonably achievable). COMPARISON: 07/10/2017. CT DOSE (mGy.cm): The estimated cumulative dose is 318.51 mGy.cm. FINDINGS: Hand Embroiderer topogram: Elevation of the left hemidiaphragm. Left subclavian 2-lead pacer. On soft tissue windows, left subclavian pacer with leads to the right atrium and right ventricular apex. Normal thyroid. No axillary, supraclavicular, or mediastinal lymphadenopathy. Evaluation of the sam limited without intravenous contrast. Atherosclerosis of the aorta. Coronary artery and aortic valve calcification. Normal heart size. No pericardial or pleural effusion. Evaluation of the upper abdomen degraded by motion artifact. On lung windows, moderate to severe emphysema. Multifocal nodular opacities in the left upper lobe most prominently in the dependent portions, which have overall decreased from prior exam. Postsurgical changes of left lower lobectomy. Allowing for motion artifact at the lung bases, decreased tree-in-bud opacities in the right lower lobe with minimal residual opacities in the superior segment. Mild bronchial wall thickening diffusely. Layering debris in the lower trachea and left mainstem bronchus. On bone windows, osteopenia. Severe compression deformity of the T7 vertebral body. This has progressed since the prior exam. Additionally, superior endplate concavity of L2, partially visualized. IMPRESSION: 1. Interval decrease in multifocal left lung opacities, consistent with resolving pneumonia. Additionally, interval decrease in right lower lobe tree-in-bud opacities. Nodular opacities in the left lung specifically should be followed to resolution given the underlying risk factors for lung cancer. 2. Emphysema. 3. Osteopenia with progressed compression fracture of T7. Additional age-indeterminate compression deformity of L2, partially visualized. Electronically signed by: Connor Johnson M.D. 08/22/2017 10:11 AM Dictated Date/Time: 08/22/2017 10:00 AM
== END | disposition home or self-care (01) ==
LOC: C.CTS 09:46
PROVIDERS: ATTEND Internal Medicine Pulmonary Disease
DX: J44.9 Chronic obstructive pulmonary disease, unspecified (principal); J96.90 Respiratory failure, unspecified, unspecified whether with hypoxia or hypercapnia; R06.02 Shortness of breath; R91.8 Other nonspecific abnormal finding of lung field; M85.88 Other specified disorders of bone density and structure, other site; S22.060A Wedge compression fracture of T7-T8 vertebra, initial encounter for closed fracture; S32.020A Wedge compression fracture of second lumbar vertebra, initial encounter for closed fracture; X58.XXXA Exposure to other specified factors, initial encounter